=== PATIENT | male | born 1945 | race Caucasian/White ===

== ENCOUNTER 2017-02-05 19:16 | Inpatient (IN) | payer MEDICARE, MEDICAID ==
[2017-02-05] MEDS ORDERED: Sodium Chloride 0.9% 10 ML Syringe FLUSH PRN (19:30)
[2017-02-05] MEDS ORDERED: Ondansetron 4 MG/2 ML SDV IVPUSH ONE (19:30)
[2017-02-05] MEDS ORDERED: Sodium Chloride 0.9% 2.5 ML Syringe FLUSH PRN (19:30)
[2017-02-05] MEDS ORDERED: Sodium Chloride 0.9% 1,000 ML IV ONE (19:30)
[2017-02-05] MEDS ORDERED: Pantoprazole 40 MG Vial IVPUSH ONE (19:30)
--- NOTE | 2017-02-05 19:34 | EDM.PDOC ---
ED HPI GENERAL MEDICAL PROBLEM - General Chief Complaint: General Stated Complaint: ABDOMINAL PAIN Time Seen by Provider: 02/05/17 19:17 - History of Present Illness INITIAL COMMENTS - FREE TEXT/NARRATIVE: HISTORY AND PHYSICAL: History of present illness: The patient is a 8-year-old male with a history of hypertension diabetes for which she takes no medications and really has no primary care follow-up for over 2 years and is brought by family with complaints of diffuse abdominal pain that started this morning associated with several episodes of vomiting and generalized weakness. According to the patient he has no abdominal history but does have a long-standing history of alcohol use which he states mostly on the weekends and sometimes during the week. His family is concerned about his liver and states that he might drink more than he will admit to. The patient says the episodes of vomiting were clear fluid not bile lack or bloody and has had normal bowel movements without black or bloody stools. The patient says the abdominal pain is mostly in the upper abdomen but it is more diffuse now and he has had generalized weakness and difficulty ambulating due to weakness that started today. He has not had any falls. He has no focal weakness. The daughter also states that she's noticed that he's been progressively more confused intermittently over the last several weeks to months. He has no headache no chest pain no shortness of breath and is a chronic tobacco user but denies drug use. The patient has no extremity pain but also says he has some lower back pain which originates from his abdomen. He has no neck pain. Patient is not taking any medication for this abdominal complaints. He describes the pain as a squeezing muscle type of discomfort. He cannot localize the pain to any one area. Review of systems: As per history of present illness and below otherwise all systems reviewed and negative. Past medical history: As per history of present illness and as reviewed below otherwise noncontributory. Surgical history: As per history of present illness and as reviewed below otherwise noncontributory. Social history: No reported history of drug or alcohol abuse. Family history: As per history of present illness and as reviewed below otherwise noncontributory. Physical exam: Gen.: Well-developed thin man who is nontoxic and speaks clearly in the ED but is very soft spoken and moves all extremities spontaneously HEENT: Atraumatic, normocephalic, pupils reactive, negative for conjunctival pallor or scleral icterus, mucous membranes moist, throat clear, neck supple, nontender, trachea midline. Lungs: Clear to auscultation with scattered coarse breath sounds but no worker breathing,, breath sounds equal bilaterally, chest nontender. Heart: S1S2, regular, negative for clicks, rubs, or JVD. Abdomen: Soft, nondistended, minimally tender diffusely without localization right or left, no rebound or guarding and bowel sounds are hypoactive. There is no tympany on percussion. Negative for masses or hepatosplenomegaly. Negative for costovertebral tenderness. Pelvis: Stable nontender. Genitourinary: Deferred. Rectal: Deferred. Extremities: Atraumatic, negative for cords or calf pain. Neurovascular unremarkable. There are chronic skin changes of the lower extremities but no bony defects and full range of motion Neuro: Awake, alert, oriented but patient had to be prompted on the year and date more than once. His speech is intact.. Cranial nerves II through XII unremarkable. Motor and sensory unremarkable throughout. Exam nonfocal. Back: There are no midline step-offs tenderness defects of the thoracic or lumbar spine and no posterior rib tenderness and no evidence of any soft tissue injuries are seen. Diagnostics: EKG CBC CMP amylase lipase alcohol level ammonia INR troponin UA serum ketones CT scan of the head abdomen and pelvis Therapeutics: IV O2 monitor gentle IV fluids Zofran There were some delays with getting the CAT scan sent and the results but I discussed all testing results with the patient and family at bedside. He has intermittently complained about diffuse abdominal pain which comes and goes in a colicky-like fashion. He did have one episode of vomiting and ET but since then has not had any vomiting. I discussed within the large hiatal hernia and the chronic 12 L1 and L2 fractures which are not acute. They seem very concerned about his overall demeanor and that he is not acting at his baseline. I will discuss the case with Dr. Charles for observation admission. 2210: Case was discussed with our hospitalist Dr. hCarles who accepts the patient for observation admission. He would like a dose of metoprolol to be given here for the blood pressure and the patient currently is not complaining of a headache chest pain or shortness of breath. Impression: Abdominal pain and vomiting, etiology unclear, elevated blood pressure Definitive disposition and diagnosis as appropriate pending reevaluation and review of above. generalized Pain Score (Numeric/FACES): 10 - Related Data Allergies Allergy/AdvReac Type Severity Reaction Status Date / Time No Known Allergies Allergy Verified 02/05/17 19:21 Home Meds: Home Meds . [No Known Home Meds] 02/05/17 [History] Past Medical History HEENT History: Reports: None Cardiovascular History: Reports: Hypertension Respiratory History: Reports: Other (See Below) Other Respiratory History: smoker Gastrointestinal History: Reports: None Genitourinary History: Reports: None Musculoskeletal History: Reports: None Neurological History: Reports: None Psychiatric History: Reports: None Endocrine/Metabolic History: Reports: Diabetes, Type II Hematologic History: Reports: None Oncologic (Cancer) History: Reports: None Dermatologic History: Reports: None - Infectious Disease History Infectious Disease History: Reports: None - Past Surgical History Male Surgical History: Reports: None Social & Family History - Family History Family Medical History: Noncontributory - Tobacco Use Smoking Status *Q: Current Every Day Smoker Years of Tobacco use: 50 Packs/Tins Daily: 2 - Recreational Drug Use Recreational Drug Use: Yes Recreational Drug Type: Reports: Marijuana/Hashish ED ROS GENERAL - Review of Systems Review Of Systems: ROS reveals no pertinent complaints other than HPI. ED EXAM, GENERAL - Physical Exam Exam: See Below (see dictation) Course - Vital Signs Last Recorded V/S: Last Vital Signs Temp 36.6 C 02/05/17 19:21 Pulse 61 02/05/17 19:21 Resp 22 H 02/05/17 19:21 BP 198/115 H 02/05/17 19:21 Pulse Ox 100 02/05/17 19:21 - Orders/Labs/Meds Orders: Active Orders 24 hr Category Date Time Status Patient Status [ADT] Stat ADT 02/05/17 22:14 Ordered Blood Glucose Check, Bedside [RC] ONETIME Care 02/05/17 19:29 Active Cardiac Monitoring [RC] . DIRECTED Care 02/05/17 19:28 Active EKG Documentation Completion [RC] STAT Care 02/05/17 19:28 Active Oxygen Therapy, ED [RC] ASDIRECTED Care 02/05/17 19:28 Active Pulse Oximetry [RC] ASDIRECTED Care 02/05/17 19:28 Active Abdomen Pelvis w Cont [CT] Stat Exams 02/05/17 19:29 Taken Head wo Cont [CT] Stat Exams 02/05/17 19:29 Taken Metoprolol Tartrate [Lopressor] Med 02/05/17 22:14 Once 5 mg IVPUSH ONETIME ONE Sodium Chloride 0.9% [Normal Saline] 1,000 ml Med 02/05/17 22:15 Active IV ASDIRECTED Sodium Chloride 0.9% [Saline Flush] Med 02/05/17 19:30 Active 10 ml FLUSH ASDIRECTED PRN Sodium Chloride 0.9% [Saline Flush] Med 02/05/17 19:30 Active 2.5 ml FLUSH ASDIRECTED PRN Saline Lock Insert [OM.PC] Stat Oth 02/05/17 19:28 Ordered Medication Orders Sodium Chloride (Normal Saline) 1,000 mls @ 150 mls/hr IV ASDIRECTED RICO Sodium Chloride (Saline Flush) 10 ml FLUSH ASDIRECTED PRN PRN Reason: Keep Vein Open Last Admin: 02/05/17 21:02 Dose: 10 ml Sodium Chloride (Saline Flush) 2.5 ml FLUSH ASDIRECTED PRN PRN Reason: Keep Vein Open Last Admin: 02/05/17 21:03 Dose: 2.5 ml Labs: Laboratory Tests 02/05/17 02/05/17 02/05/17 Range/Units 19:48 19:48 19:48 WBC 3.01 L (4.0-11.0) K/uL RBC 5.31 (4.50-5.90) M/uL Hgb 15.3 (13.0-17.0) g/dL Hct 44.8 (38.0-50.0) % MCV 84.4 (80.0-98.0) fL MCH 28.8 (27.0-32.0) pg MCHC 34.2 (31.0-37.0) g/dL RDW Std Deviation 43.7 (28.0-62.0) fl RDW Coeff of Rayshawn 14 (11.0-15.0) % Plt Count 165 (150-400) K/uL MPV 9.20 (7.40-12.00) fL Neut % (Auto) 63.5 (48.0-80.0) % Lymph % (Auto) 21.3 (16.0-40.0) % [place] % (Auto) 14.6 (0.0-15.0) % Eos % (Auto) 0.3 (0.0-7.0) % Baso % (Auto) 0.3 (0.0-1.5) % Neut # (Auto) 1.9 (1.4-5.7) K/uL Lymph # (Auto) 0.6 (0.6-2.4) K/uL [place] # (Auto) 0.4 (0.0-0.8) K/uL Eos # (Auto) 0.0 (0.0-0.7) K/uL Baso # (Auto) 0.0 (0.0-0.1) K/uL Nucleated RBC % 0.0 /100WBC Nucleated RBCs # 0 K/uL INR 1.06 (0.86-1.11) Sodium 134 L (136-146) mmol/L Potassium 4.0 (3.5-5.1) mmol/L Chloride 100 (98-110) mmol/L Carbon Dioxide 24 (21-31) mmol/L BUN 14 (6.0-23.0) mg/dL Creatinine 1.0 (0.6-1.5) mg/dL Est Cr Clr Drug Dosing TNP Estimated GFR (MDRD) > 60.0 ml/min Glucose 142 H (60-110) mg/dL POC Glucose (60-110) mg/dL Calcium 9.4 (8.8-10.8) mg/dL Total Bilirubin 0.5 (0.1-1.5) mg/dL AST 21 (5-40) IU/L ALT 17 (8-54) IU/L Alkaline Phosphatase 81 (40-150) Ammonia (14-68) UG/DL Troponin I (0.0-0.29) NG/ML Total Protein 7.4 (6.0-8.0) g/dL Albumin 4.1 (3.4-4.8) g/dL Globulin 3.3 (2.0-3.5) g/dL Albumin/Globulin Ratio 1.2 L (1.3-2.8) Amylase 52 (10-90) U/L Lipase 40 (7-80) U/L Urine Color Urine Appearance Urine pH (5.0-8.0) Ur Specific [place] (1.001-1.035) Urine Protein (NEGATIVE) mg/dL Urine Glucose (UA) (NEGATIVE) mg/dL Urine Ketones (NEGATIVE) mg/dL Urine Occult Blood (NEGATIVE) Urine Nitrite (NEGATIVE) Urine Bilirubin (NEGATIVE) Urine Urobilinogen (<2.0) EU/dL Ur Leukocyte Esterase (NEGATIVE) Urine RBC (0-2/HPF) Urine WBC (0-5/HPF) Ur Epithelial Cells (NONE-FEW) Urine Bacteria (NEGATIVE) Ethyl Alcohol < 10.0 mg/dL Ketones (NEG) 02/05/17 02/05/17 02/05/17 Range/Units 19:48 19:48 19:48 WBC (4.0-11.0) K/uL RBC (4.50-5.90) M/uL Hgb (13.0-17.0) g/dL Hct (38.0-50.0) % MCV (80.0-98.0) fL MCH (27.0-32.0) pg MCHC (31.0-37.0) g/dL RDW Std Deviation (28.0-62.0) fl RDW Coeff of Rayshawn (11.0-15.0) % Plt Count (150-400) K/uL MPV (7.40-12.00) fL Neut % (Auto) (48.0-80.0) % Lymph % (Auto) (16.0-40.0) % [place] % (Auto) (0.0-15.0) % Eos % (Auto) (0.0-7.0) % Baso % (Auto) (0.0-1.5) % Neut # (Auto) (1.4-5.7) K/uL Lymph # (Auto) (0.6-2.4) K/uL [place] # (Auto) (0.0-0.8) K/uL Eos # (Auto) (0.0-0.7) K/uL Baso # (Auto) (0.0-0.1) K/uL Nucleated RBC % /100WBC Nucleated RBCs # K/uL INR (0.86-1.11) Sodium (136-146) mmol/L Potassium (3.5-5.1) mmol/L Chloride (98-110) mmol/L Carbon Dioxide (21-31) mmol/L BUN (6.0-23.0) mg/dL Creatinine (0.6-1.5) mg/dL Est Cr Clr Drug Dosing Estimated GFR (MDRD) ml/min Glucose (60-110) mg/dL POC Glucose (60-110) mg/dL Calcium (8.8-10.8) mg/dL Total Bilirubin (0.1-1.5) mg/dL AST (5-40) IU/L ALT (8-54) IU/L Alkaline Phosphatase (40-150) Ammonia 39 (14-68) UG/DL Troponin I < 0.10 (0.0-0.29) NG/ML Total Protein (6.0-8.0) g/dL Albumin (3.4-4.8) g/dL Globulin (2.0-3.5) g/dL Albumin/Globulin Ratio (1.3-2.8) Amylase (10-90) U/L Lipase (7-80) U/L Urine Color Urine Appearance Urine pH (5.0-8.0) Ur Specific [place] (1.001-1.035) Urine Protein (NEGATIVE) mg/dL Urine Glucose (UA) (NEGATIVE) mg/dL Urine Ketones (NEGATIVE) mg/dL Urine Occult Blood (NEGATIVE) Urine Nitrite (NEGATIVE) Urine Bilirubin (NEGATIVE) Urine Urobilinogen (<2.0) EU/dL Ur Leukocyte Esterase (NEGATIVE) Urine RBC (0-2/HPF) Urine WBC (0-5/HPF) Ur Epithelial Cells (NONE-FEW) Urine Bacteria (NEGATIVE) Ethyl Alcohol mg/dL Ketones NEGATIVE (NEG) 02/05/17 02/05/17 Range/Units 20:25 21:11 WBC (4.0-11.0) K/uL RBC (4.50-5.90) M/uL Hgb (13.0-17.0) g/dL Hct (38.0-50.0) % MCV (80.0-98.0) fL MCH (27.0-32.0) pg MCHC (31.0-37.0) g/dL RDW Std Deviation (28.0-62.0) fl RDW Coeff of Rayshawn (11.0-15.0) % Plt Count (150-400) K/uL MPV (7.40-12.00) fL Neut % (Auto) (48.0-80.0) % Lymph % (Auto) (16.0-40.0) % [place] % (Auto) (0.0-15.0) % Eos % (Auto) (0.0-7.0) % Baso % (Auto) (0.0-1.5) % Neut # (Auto) (1.4-5.7) K/uL Lymph # (Auto) (0.6-2.4) K/uL [place] # (Auto) (0.0-0.8) K/uL Eos # (Auto) (0.0-0.7) K/uL Baso # (Auto) (0.0-0.1) K/uL Nucleated RBC % /100WBC Nucleated RBCs # K/uL INR (0.86-1.11) Sodium (136-146) mmol/L Potassium (3.5-5.1) mmol/L Chloride (98-110) mmol/L Carbon Dioxide (21-31) mmol/L BUN (6.0-23.0) mg/dL Creatinine (0.6-1.5) mg/dL Est Cr Clr Drug Dosing Estimated GFR (MDRD) ml/min Glucose (60-110) mg/dL POC Glucose 119 H (60-110) mg/dL Calcium (8.8-10.8) mg/dL Total Bilirubin (0.1-1.5) mg/dL AST (5-40) IU/L ALT (8-54) IU/L Alkaline Phosphatase (40-150) Ammonia (14-68) UG/DL Troponin I (0.0-0.29) NG/ML Total Protein (6.0-8.0) g/dL Albumin (3.4-4.8) g/dL Globulin (2.0-3.5) g/dL Albumin/Globulin Ratio (1.3-2.8) Amylase (10-90) U/L Lipase (7-80) U/L Urine Color YELLOW Urine Appearance CLEAR Urine pH 7.0 (5.0-8.0) Ur Specific [place] 1.015 (1.001-1.035) Urine Protein TRACE (NEGATIVE) mg/dL Urine Glucose (UA) NEGATIVE (NEGATIVE) mg/dL Urine Ketones TRACE H (NEGATIVE) mg/dL Urine Occult Blood TRACE-INTACT (NEGATIVE) Urine Nitrite NEGATIVE (NEGATIVE) Urine Bilirubin NEGATIVE (NEGATIVE) Urine Urobilinogen 0.2 (<2.0) EU/dL Ur Leukocyte Esterase NEGATIVE (NEGATIVE) Urine RBC 0-2 (0-2/HPF) Urine WBC 0-1 (0-5/HPF) Ur Epithelial Cells RARE (NONE-FEW) Urine Bacteria RARE (NEGATIVE) Ethyl Alcohol mg/dL Ketones (NEG) Meds: Medications Generic Name Dose Route Start Last Admin Trade Name Freq PRN Reason Stop Dose Admin Sodium Chloride 1,000 mls @ 150 mls/hr 02/05/17 22:15 Normal Saline IV ASDIRECTED RICO Sodium Chloride 10 ml 02/05/17 19:30 02/05/17 21:02 Saline Flush FLUSH 10 ml ASDIRECTED PRN Administration Keep Vein Open Sodium Chloride 2.5 ml 02/05/17 19:30 02/05/17 21:03 Saline Flush FLUSH 2.5 ml ASDIRECTED PRN Administration Keep Vein Open Discontinued Medications Generic Name Dose Route Start Last Admin Trade Name Freq PRN Reason Stop Dose Admin Sodium Chloride 1,000 mls @ 999 mls/hr 02/05/17 19:30 02/05/17 21:00 Normal Saline IV 02/05/17 20:30 999 mls/hr STAT ONE Administration Iopamidol 100 ml 02/05/17 20:06 02/05/17 20:07 Isovue Multipack-370 (76%) IVPUSH 02/05/17 20:07 100 ml ONETIME STA Administration Ketorolac Tromethamine 30 mg 02/05/17 22:07 Toradol IVPUSH 02/05/17 22:08 ONETIME ONE Ondansetron HCl 4 mg 02/05/17 19:30 02/05/17 21:08 Zofran IVPUSH 02/05/17 19:31 4 mg ONETIME ONE Administration Pantoprazole Sodium 80 mg 02/05/17 19:30 02/05/17 21:00 Protonix Iv IVPUSH 02/05/17 19:31 80 mg .BOLUS ONE Administration Departure - Departure Time of Disposition: 22:17 Disposition: Refer to Observation Condition: Good Clinical Impression: Elevated blood pressure reading Abdominal pain Qualifiers: Abdominal location: generalized Qualified Code(s): R10.84 - Generalized abdominal pain Vomiting Qualifiers: Vomiting type: unspecified Vomiting Intractability: non-intractable Nausea presence: with nausea Qualified Code(s): R11.2 - Nausea with vomiting, unspecified - Discharge Information Forms: ED Department Discharge - My Orders Last 24 Hours: My Active Orders 02/05/17 19:28 Cardiac Monitoring [RC] . DIRECTED EKG Documentation Completion [RC] STAT Oxygen Therapy, ED [RC] ASDIRECTED Pulse Oximetry [RC] ASDIRECTED Saline Lock Insert [OM.PC] Stat 02/05/17 19:29 Blood Glucose Check, Bedside [RC] ONETIME Abdomen Pelvis w Cont [CT] Stat Head wo Cont [CT] Stat 02/05/17 19:30 Sodium Chloride 0.9% [Saline Flush] 10 ml FLUSH ASDIRECTED PRN Sodium Chloride 0.9% [Saline Flush] 2.5 ml FLUSH ASDIRECTED PRN 02/05/17 22:14 Patient Status [ADT] Stat Metoprolol Tartrate [Lopressor] 5 mg IVPUSH ONETIME ONE 02/05/17 22:15 Sodium Chloride 0.9% [Normal Saline] 1,000 ml IV ASDIRECTED - Assessment/Plan Last 24 Hours: My Active Orders 02/05/17 19:28 Cardiac Monitoring [RC] . DIRECTED EKG Documentation Completion [RC] STAT Oxygen Therapy, ED [RC] ASDIRECTED Pulse Oximetry [RC] ASDIRECTED Saline Lock Insert [OM.PC] Stat 02/05/17 19:29 Blood Glucose Check, Bedside [RC] ONETIME Abdomen Pelvis w Cont [CT] Stat Head wo Cont [CT] Stat 02/05/17 19:30 Sodium Chloride 0.9% [Saline Flush] 10 ml FLUSH ASDIRECTED PRN Sodium Chloride 0.9% [Saline Flush] 2.5 ml FLUSH ASDIRECTED PRN 02/05/17 22:14 Patient Status [ADT] Stat Metoprolol Tartrate [Lopressor] 5 mg IVPUSH ONETIME ONE 02/05/17 22:15 Sodium Chloride 0.9% [Normal Saline] 1,000 ml IV ASDIRECTED
[2017-02-05] MEDS ORDERED: Iopamidol 755 MG/ML 500 ML Multipack Bottle IVPUSH STA (20:06)
[2017-02-05 20:23] LABS: CHLORIDE,CL 100 mmol/L (98-110); SODIUM,NA 134 mmol/L (136-146)
[2017-02-05] MEDS ORDERED: Ketorolac 30 MG/ML SDV IVPUSH ONE (22:07)
[2017-02-05] MEDS ORDERED: Metoprolol Tartrate 5 MG/5 ML SDV IVPUSH ONE (22:14)
[2017-02-05] MEDS: Sodium Chloride 0.9% 1,000 ML IV SCH (22:26)
[2017-02-06] MEDS: Thiamine 100 MG Tab PO SCH ×2 (00:34→08:54)
[2017-02-06] MEDS: Folic Acid 50 MG/10 ML MDV SUBCUT SCH ×2 (00:34→08:55)
[2017-02-06] MEDS: Sodium Chloride 0.9% 1,000 ML IV SCH ×3 (04:57→20:06)
--- NOTE | 2017-02-06 09:14 | PCM.HP ---
H&P History of Present Illness - General Date of Service: 02/06/17 Source of Information: Patient - History of Present Illness Initial Comments - Free Text/Narative: 71-year-old male with a history of hypertension diabetes for which she takes no medications and really has no primary care follow-up for over 2 years and is brought by family with complaints of diffuse abdominal pain that started this morning associated with several episodes of vomiting and generalized weakness. According to the patient he has no abdominal history but does have a long- standing history of alcohol use which he states mostly on the weekends and sometimes during the week. His family is concerned about his liver and states that he might drink more than he will admit to. The patient says the episodes of vomiting were clear fluid not bile lack or bloody and has had normal bowel movements without black or bloody stools. The patient says the abdominal pain is mostly in the upper abdomen but it is more diffuse now and he has had generalized weakness and difficulty ambulating due to weakness that started today. He has not had any falls. He has no focal weakness. The daughter also states that she's noticed that he's been progressively more confused intermittently over the last several weeks to months.He does not remember alot of things. He drinks 13 beers over weekend and does not drink during weekdays. He has no headache no chest pain no shortness of breath and is a chronic tobacco user but denies drug use. In the ED, His blood pressure was elevated 198 /115. RR 20's. IV Lopressor 5 mg x 1 given. Utox negative. CBC, BMP, lipase, amylase were unremarkable. Abdominal CT negative. generalized Pain Score (Numeric/FACES): 0 - Related Data Allergies/Adverse Reactions: Allergies Allergy/AdvReac Type Severity Reaction Status Date / Time No Known Allergies Allergy Verified 02/05/17 19:21 Home Medications: Home Meds . [No Known Home Meds] 02/05/17 [History] Past Medical History HEENT History: Reports: None Cardiovascular History: Reports: Hypertension Respiratory History: Reports: Other (See Below) Other Respiratory History: smoker Gastrointestinal History: Reports: None Genitourinary History: Reports: None Musculoskeletal History: Reports: None Neurological History: Reports: None Psychiatric History: Reports: None Endocrine/Metabolic History: Reports: Diabetes, Type II Hematologic History: Reports: None Oncologic (Cancer) History: Reports: None Dermatologic History: Reports: None - Infectious Disease History Infectious Disease History: Reports: None - Past Surgical History Male Surgical History: Reports: None Social & Family History - Family History Family Medical History: Noncontributory - Tobacco Use Smoking Status *Q: Current Every Day Smoker Years of Tobacco use: 50 Packs/Tins Daily: 2 Second Hand Smoke Exposure: Yes - Caffeine Use Caffeine Use: Reports: Coffee, Soda - Alcohol Use Number of Drinks Per Day: 10 Date of Last Drink: 02/03/17 - Recreational Drug Use Recreational Drug Use: Yes Recreational Drug Type: Reports: Marijuana/Hashish H&P Review of Systems - Review of Systems: Review Of Systems: See Below General: Reports: Fatigue HEENT: Reports: No Symptoms Pulmonary: Reports: No Symptoms Cardiovascular: Reports: No Symptoms Gastrointestinal: Reports: No Symptoms Genitourinary: Reports: No Symptoms Musculoskeletal: Reports: No Symptoms Skin: Reports: No Symptoms Psychiatric: Reports: No Symptoms Neurological: Reports: No Symptoms Exam - Exam Exam: See Below - Vital Signs Vital Signs: Last Vital Signs Temp 97.7 F 02/06/17 04:04 Pulse 55 L 02/06/17 04:04 Resp 14 02/06/17 04:04 BP 116/61 02/06/17 04:04 Pulse Ox 97 02/06/17 04:04 Weight: 70.3 kg - Exam Quality Assessment: Supplemental Oxygen General: Alert, Oriented HEENT: EOMI Neck: Supple, Trachea Midline Lungs: Clear to Auscultation, Normal Respiratory Effort Cardiovascular: Regular Rate, Regular Rhythm GI/Abdominal Exam: Normal Bowel Sounds, Soft Back Exam: Normal Inspection Extremities: Normal Inspection Neurological: Cranial Nerves Intact Neuro Extensive - Mental Status: Memory Loss-Remote Events, Memory Loss-Recent Events, Other (poor cognition) Psychiatric: Withdrawal Symptoms - Patient Data Lab Results Last 24 hrs: Laboratory Results - last 24 hr 02/06/17 Range/Units 06:22 Troponin I < 0.10 (0.0-0.29) NG/ML Result Diagrams: 02/05/17 19:48 02/05/17 19:48 *Q Meaningful Use (ADM) - VTE *Q VTE Criteria *Q: - Stroke *Q Stroke Criteria *Q: - AMI *Q AMI Criteria *Q: Problem List Initiated/Reviewed/Updated: Yes Orders Last 24hrs: Active Orders 24 hr Category Date Time Status CIWAA Assessment [RC] Q4H Care 02/06/17 04:59 Active Television Audio Engineer Discontinue [Cardiac Monitoring Care 02/06/17 00:16 Inactive Discontinue] [RC] Click To Edit Telemetry Monitoring [Cardiac Monitoring] [RC] . Care 02/06/17 00:16 Active DIRECTED Medication Orders Folic Acid (Folic Acid) 1 mg SUBCUT DAILY [facility] Last Admin: 02/06/17 08:55 Dose: 1 mg Admin: 02/06/17 00:34 Dose: 1 mg Sodium Chloride (Normal Saline) 1,000 mls @ 150 mls/hr IV ASDIRECTED [facility] Last Admin: 02/06/17 04:57 Dose: 150 mls/hr Infusion: 02/06/17 04:57 Dose: 150 mls/hr Admin: 02/05/17 22:26 Dose: 150 mls/hr Sodium Chloride (Saline Flush) 10 ml FLUSH ASDIRECTED PRN PRN Reason: Keep Vein Open Last Admin: 02/05/17 21:02 Dose: 10 ml Sodium Chloride (Saline Flush) 2.5 ml FLUSH ASDIRECTED PRN PRN Reason: Keep Vein Open Last Admin: 02/05/17 21:03 Dose: 2.5 ml Thiamine HCl (Vitamin B-1) 100 mg PO DAILY [facility] Last Admin: 02/06/17 08:54 Dose: 100 mg Admin: 02/06/17 00:34 Dose: 100 mg Assessment/Plan Comment:: 71 yo male admitted for confusion and abdominal pain Abdominal pain : resolved. ETOH withdrawal: ciwaa 9: start ativan protocol continue folic acid and thiamine.
--- NOTE | 2017-02-06 10:53 | CT ---
EXAM DATE: 02/06/17 PATIENT'S AGE: 71 Patient: NEDRA ELMORE Facility: [place], [place] Site . Site : [id number] Study: CT Head [id number]/24/2017 9:04:38 PM Ordering Physician: Alden Powell Final Report: INDICATION: Pain, questionable loss of consciousness TECHNIQUE: Head CT without contrast. COMPARISON: None FINDINGS: CSF spaces: Within normal limits for age. Brain parenchyma: There are nonspecific low attenuation white matter changes consistent with chronic microvascular disease. No sign of mass, hemorrhage, or midline shift. Skull base and calvarium: The visualized paranasal sinuses and mastoid air cells demonstrate no acute or significant findings. The visualized orbits are grossly unremarkable. No skull fractures. There is intracranial atherosclerosis. IMPRESSION: 1. No acute findings. 2. Nonspecific white matter disease, typical of chronic microvascular disease. Please note that all CT scans at this facility use dose modulation, iterative reconstruction, and/or weight-based dosing when appropriate to reduce radiation dose to as low as reasonably achievable. Dictated by Tita Jimenez MD @ Feb 05 2017 9:36PM (Electronic Signature) Report Signed by Proxy. [facility]ilva
--- NOTE | 2017-02-06 10:54 | CT ---
EXAM DATE: 02/06/17 PATIENT'S AGE: 71 Patient: NEDRA ELMORE Facility: [place], [place] Site . Site : 1945 Study: CT Abdomen/Pelvis [id number]/24/2017 9:06:42 PM Ordering Physician: Alden Powell Final Report: INDICATION: N/V PATIENT BEGAN THROWING UP DURING SCAN CT ABDOMEN AND PELVIS WITH CONTRAST TECHNIQUE: Multidetector CT imaging was performed through the abdomen and pelvis following intravenous contrast administration using 100 mL Isovue 370. Coronal and sagittal reconstructions were generated. COMPARISON: 01/19/[address] angio. FINDINGS: The exam is significantly limited by motion as the patient reportedly vomited during the scan. Lower chest: Mild bibasilar lung stranding consistent with atelectasis. Stable small left basilar lung nodule. Liver: Stable tiny hypodensity in the right lobe of the liver on image 39 of series 201, consistent with a benign cyst. Gallbladder and bile ducts: No gallbladder wall thickening or calcified gallstones. No biliary dilation identified. Pancreas: Unremarkable. Spleen: Normal. Adrenals: No nodules or masses. Kidneys, ureters, and urinary bladder: No renal masses or hydronephrosis. No bladder mass or definite wall thickening. Gastrointestinal tract: Moderate to large hiatal hernia. Normal caliber small bowel without obvious obstruction. The appendix is normal. Multiple sigmoid colon diverticula without definite evidence of diverticulitis. Vascular structures: Diffuse atherosclerotic changes of the aorta and iliac arteries. Ectasia of the infrarenal abdominal aorta, similar to the previous exam. Peritoneum: No free air, abscess, or significant free fluid. Lymph nodes: No pathologically enlarged nodes identified. Reproductive organs: Moderate to severe prostatomegaly. Bones: Chronic-appearing mild compression fracture of the superior endplate of T12. Subacute healing nondisplaced fractures of the left transverse processes of L1 and L2. IMPRESSION: 1. Markedly limited exam due to motion. 2. No definite acute intra-abdominal abnormality identified. 2. Multiple nonacute findings as detailed above. KIAH HEART MD [employer] Dictated by Richie Heart MD @ 02/05/2017 10:00:46 PM Dictated by: Richie Heart MD @ 02/05/2017 22:01:30 (Electronic Signature) Report Signed by Proxy. BLANCHE
[2017-02-06] MEDS: Thiamine 100 MG in Sodium Chloride 0.9% 100 ML IV SCH (13:43)
[2017-02-06] MEDS ORDERED: Metoprolol Tartrate 5 MG/5 ML SDV IVPUSH ONE (16:14)
[2017-02-06] MEDS ORDERED: Magnesium Sulfate/Water 2 GM in Premix Bag 1 BAG IV ONE (16:19)
[2017-02-06] MEDS: Lisinopril 5 MG Tab PO SCH (16:31)
[2017-02-06] MEDS ORDERED: LORazepam 1 MG Tab PO ONE (18:29)
[2017-02-07] MEDS: LORazepam 2 MG/ML MDV IVPUSH PRN ×2 (00:14→03:20)
[2017-02-07] MEDS: Sodium Chloride 0.9% 1,000 ML IV SCH ×4 (02:48→23:11)
[2017-02-07 05:43] LABS: CHLORIDE,CL 102 mmol/L (98-110); SODIUM,NA 134 mmol/L (136-146)
[2017-02-07] MEDS: Lisinopril 5 MG Tab PO SCH (08:51)
[2017-02-07] MEDS: Thiamine 100 MG in Sodium Chloride 0.9% 100 ML IV SCH (08:51)
[2017-02-07] MEDS: Folic Acid 50 MG/10 ML MDV SUBCUT SCH (08:52)
--- NOTE | 2017-02-07 09:34 | CR ---
EXAM DATE: 02/07/17 PATIENT'S AGE: 71 Patient: NEDRA ELMORE Facility: [place], [place] Site Site : 1945 Study: XRay Chest Left RIBS W CHEST-02/06/2017 5:36:27 PM Ordering Physician: SHAY ALVAREZ Final Report: INDICATION : Lower rib pain, cough. TECHNIQUE : Chest with rib detail views LEFT ribs. 5 views FINDINGS : No significant rib fractures are visualized. No additional osseous lesions. The lungs are clear. Heart size is normal. No visualized pneumothorax. Left costophrenic sulcus clear. IMPRESSION : Negative chest and left rib series. Dictated by Rohan Johns MD @ 02/06/2017 6:04:15 PM Dictated by: Rohan Johns MD @ 02/06/2017 18:04:18 (Electronic Signature) Report Signed by Proxy. [facility] DAV[facility] HOSPITALSilva
--- NOTE | 2017-02-07 10:31 | PCM.PN ---
- General Info Date of Service: 02/07/17 Subjective Update: He c/o of rib pain yesterday. RIB xray and cxr did not reveal any acute cardiopulmonary abnormalities. KYLE 19 Daughter was present. She is concerned he might go home and drink again. He lives alone. Functional Status: Reports: Tolerating Diet, Urinating - Review of Systems General: Reports: No Symptoms HEENT: Reports: No Symptoms Pulmonary: Reports: No Symptoms Cardiovascular: Reports: No Symptoms Gastrointestinal: Reports: No Symptoms Genitourinary: Reports: No Symptoms Musculoskeletal: Reports: No Symptoms Skin: Reports: No Symptoms Neurological: Reports: Tremors Psychiatric: Reports: No Symptoms - Patient Data Vitals - Most Recent: Last Vital Signs Temp 99.2 F 02/07/17 04:00 Pulse 99 02/07/17 04:00 Resp 20 02/07/17 04:00 BP 146/94 H 02/07/17 08:51 Pulse Ox 95 02/07/17 04:00 Weight - Most Recent: 71.5 kg Med Orders - Current: Current Medications Folic Acid (Folic Acid) 1 mg SUBCUT DAILY [facility] Last Admin: 02/07/17 08:52 Dose: 1 mg Sodium Chloride (Normal Saline) 1,000 mls @ 150 mls/hr IV ASDIRECTED [facility] Last Admin: 02/07/17 09:03 Dose: 150 mls/hr Thiamine HCl 100 mg/ Sodium (Chloride) 101 mls @ 200 mls/hr IV DAILY [facility] Last Admin: 02/07/17 08:51 Dose: 200 mls/hr Lisinopril (Prinivil) 5 mg PO DAILY [facility] Last Admin: 02/07/17 08:51 Dose: 5 mg Lorazepam (Ativan) 0 mg IVPUSH Q4H PRN; Protocol PRN Reason: agitation/withdrawal Last Admin: 02/07/17 03:20 Dose: 2 mg Sodium Chloride (Saline Flush) 10 ml FLUSH ASDIRECTED PRN PRN Reason: Keep Vein Open Last Admin: 02/05/17 21:02 Dose: 10 ml Sodium Chloride (Saline Flush) 2.5 ml FLUSH ASDIRECTED PRN PRN Reason: Keep Vein Open Last Admin: 02/05/17 21:03 Dose: 2.5 ml Sodium Phosphate (Neutra-Phos) 250 mg PO QID [facility] Discontinued Medications Sodium Chloride (Normal Saline) 1,000 mls @ 999 mls/hr IV STAT ONE Stop: 02/05/17 20:30 Last Admin: 02/05/17 21:00 Dose: 999 mls/hr Magnesium Sulfate 2 gm/ Premix 50 mls @ 50 mls/hr IV ONETIME ONE Stop: 02/06/17 17:18 Last Admin: 02/06/17 16:32 Dose: 50 mls/hr Iopamidol (Isovue Multipack-370 (76%)) 100 ml IVPUSH ONETIME STA Stop: 02/05/17 20:07 Last Admin: 02/05/17 20:07 Dose: 100 ml Ketorolac Tromethamine (Toradol) 30 mg IVPUSH ONETIME ONE Stop: 02/05/17 22:08 Last Admin: 02/05/17 22:26 Dose: 30 mg Lorazepam (Ativan) 1 mg PO ONETIME ONE Stop: 02/06/17 18:30 Last Admin: 02/06/17 18:41 Dose: 1 mg Metoprolol Tartrate (Lopressor) 5 mg IVPUSH ONETIME ONE Stop: 02/05/17 22:15 Last Admin: 02/05/17 22:27 Dose: 5 mg Metoprolol Tartrate (Lopressor) 5 mg IVPUSH ONETIME ONE Stop: 02/06/17 16:15 Last Admin: 02/06/17 16:50 Dose: Not Given Ondansetron HCl (Zofran) 4 mg IVPUSH ONETIME ONE Stop: 02/05/17 19:31 Last Admin: 02/05/17 21:08 Dose: 4 mg Pantoprazole Sodium (Protonix Iv) 80 mg IVPUSH .BOLUS ONE Stop: 02/05/17 19:31 Last Admin: 02/05/17 21:00 Dose: 80 mg Thiamine HCl (Vitamin B-1) 100 mg PO DAILY [facility] Last Admin: 02/06/17 08:54 Dose: 100 mg - Exam General: Sedated HEENT: Pupils Equal, EOMI Lungs: Decreased Breath Sounds Cardiovascular: Regular Rate, Regular Rhythm GI/Abdominal Exam: Normal Bowel Sounds, Soft Back Exam: Normal Inspection Extremities: Normal Inspection Neurological: No New Focal Deficit Psy/Mental Status: Normal Affect, Normal Mood - Problem List Review Problem List Initiated/Reviewed/Updated: Yes - My Orders Last 24 Hours: My Active Orders 02/07/17 12:00 Phosphorus #1 [Neutra-Phos] 250 mg PO QID - Plan Plan:: 71 yo male admitted for ETOH withdrawal ETOH withdrawal: ciwaa 18: start Ativan protocol continue folic acid and thiamine. replaced phosphate
[2017-02-07] MEDS: Phosphorus #1 250 MG Tab PO SCH ×3 (12:05→23:10)
[2017-02-08 05:47] LABS: CHLORIDE,CL 106 mmol/L (98-110); SODIUM,NA 137 mmol/L (136-146)
[2017-02-08] MEDS: Sodium Chloride 0.9% 1,000 ML IV SCH (06:14)
[2017-02-08] MEDS: Phosphorus #1 250 MG Tab PO SCH ×4 (06:14→23:16)
[2017-02-08] MEDS: Folic Acid 50 MG/10 ML MDV SUBCUT SCH (09:45)
[2017-02-08] MEDS: Thiamine 100 MG in Sodium Chloride 0.9% 100 ML IV SCH (09:45)
[2017-02-08] MEDS: Lisinopril 5 MG Tab PO SCH (09:45)
[2017-02-08] MEDS ORDERED: Nicotine 14 MG/24 Hr Patch TRDERM ONE (15:56)
--- NOTE | 2017-02-08 16:25 | PCM.PN ---
- General Info Date of Service: 02/08/17 Subjective Update: CIWAA score 4. doing much better today Functional Status: Reports: Pain Controlled, Tolerating Diet, Ambulating, Urinating - Review of Systems General: Reports: No Symptoms HEENT: Reports: No Symptoms Pulmonary: Reports: No Symptoms Cardiovascular: Reports: No Symptoms Gastrointestinal: Reports: No Symptoms Genitourinary: Reports: No Symptoms Musculoskeletal: Reports: No Symptoms Skin: Reports: No Symptoms Neurological: Reports: No Symptoms Psychiatric: Reports: No Symptoms - Patient Data Vitals - Most Recent: Last Vital Signs Temp 97.7 F 02/08/17 16:00 Pulse 68 02/08/17 16:00 Resp 22 H 02/08/17 16:00 BP 134/62 02/08/17 16:00 Pulse Ox 98 02/08/17 16:00 Weight - Most Recent: 71.5 kg I&O - Last 24 Hours: Intake & Output 02/08/17 02/08/17 02/08/17 06:59 14:59 22:59 Intake Total 2889 Output Total 725 Balance 2164 Lab Results Last 24 Hours: Laboratory Results - last 24 hr 02/08/17 02/08/17 Range/Units 04:36 04:36 WBC 4.28 (4.0-11.0) K/uL RBC 5.35 (4.50-5.90) M/uL Hgb 15.1 (13.0-17.0) g/dL Hct 45.3 (38.0-50.0) % MCV 84.7 (80.0-98.0) fL MCH 28.2 (27.0-32.0) pg MCHC 33.3 (31.0-37.0) g/dL RDW Std Deviation 44.1 (28.0-62.0) fl RDW Coeff of Rayshawn 14 (11.0-15.0) % Plt Count 152 (150-400) K/uL MPV 9.90 (7.40-12.00) fL Neut % (Auto) 58.4 (48.0-80.0) % Lymph % (Auto) 26.4 (16.0-40.0) % [place] % (Auto) 14.5 (0.0-15.0) % Eos % (Auto) 0.2 (0.0-7.0) % Baso % (Auto) 0.5 (0.0-1.5) % Neut # (Auto) 2.5 (1.4-5.7) K/uL Lymph # (Auto) 1.1 (0.6-2.4) K/uL [place] # (Auto) 0.6 (0.0-0.8) K/uL Eos # (Auto) 0.0 (0.0-0.7) K/uL Baso # (Auto) 0.0 (0.0-0.1) K/uL Nucleated RBC % 0.0 /100WBC Nucleated RBCs # 0 K/uL Sodium 137 (136-146) mmol/L Potassium 4.2 (3.5-5.1) mmol/L Chloride 106 (98-110) mmol/L Carbon Dioxide 24 (21-31) mmol/L BUN 10 (6.0-23.0) mg/dL Creatinine 0.9 (0.6-1.5) mg/dL Est Cr Clr Drug Dosing 77.24 mL/min Estimated GFR (MDRD) > 60.0 ml/min Glucose 95 (60-110) mg/dL Calcium 8.5 L (8.8-10.8) mg/dL Phosphorus 2.4 (2.4-4.7) mg/dL Magnesium 1.5 (1.5-2.3) mEq/L Med Orders - Current: Current Medications Docusate Sodium (Colace) 100 mg PO DAILY [facility] Folic Acid (Folic Acid) 1 mg SUBCUT DAILY [facility] Last Admin: 02/08/17 09:45 Dose: 1 mg Thiamine HCl 100 mg/ Sodium (Chloride) 101 mls @ 200 mls/hr IV DAILY [facility] Last Admin: 02/08/17 09:45 Dose: 200 mls/hr Lisinopril (Prinivil) 5 mg PO DAILY [facility] Last Admin: 02/08/17 09:45 Dose: 5 mg Lorazepam (Ativan) 0 mg IVPUSH Q4H PRN; Protocol PRN Reason: agitation/withdrawal Last Admin: 02/07/17 03:20 Dose: 2 mg Sodium Chloride (Saline Flush) 10 ml FLUSH ASDIRECTED PRN PRN Reason: Keep Vein Open Last Admin: 02/05/17 21:02 Dose: 10 ml Sodium Chloride (Saline Flush) 2.5 ml FLUSH ASDIRECTED PRN PRN Reason: Keep Vein Open Last Admin: 02/05/17 21:03 Dose: 2.5 ml Sodium Phosphate (Neutra-Phos) 250 mg PO QID [facility] Last Admin: 02/08/17 13:39 Dose: 250 mg Discontinued Medications Sodium Chloride (Normal Saline) 1,000 mls @ 999 mls/hr IV STAT ONE Stop: 02/05/17 20:30 Last Admin: 02/05/17 21:00 Dose: 999 mls/hr Sodium Chloride (Normal Saline) 1,000 mls @ 150 mls/hr IV ASDIRECTED [facility] Last Admin: 02/08/17 06:14 Dose: 150 mls/hr Magnesium Sulfate 2 gm/ Premix 50 mls @ 50 mls/hr IV ONETIME ONE Stop: 02/06/17 17:18 Last Admin: 02/06/17 16:32 Dose: 50 mls/hr Iopamidol (Isovue Multipack-370 (76%)) 100 ml IVPUSH ONETIME STA Stop: 02/05/17 20:07 Last Admin: 02/05/17 20:07 Dose: 100 ml Ketorolac Tromethamine (Toradol) 30 mg IVPUSH ONETIME ONE Stop: 02/05/17 22:08 Last Admin: 02/05/17 22:26 Dose: 30 mg Lorazepam (Ativan) 1 mg PO ONETIME ONE Stop: 02/06/17 18:30 Last Admin: 02/06/17 18:41 Dose: 1 mg Metoprolol Tartrate (Lopressor) 5 mg IVPUSH ONETIME ONE Stop: 02/05/17 22:15 Last Admin: 02/05/17 22:27 Dose: 5 mg Metoprolol Tartrate (Lopressor) 5 mg IVPUSH ONETIME ONE Stop: 02/06/17 16:15 Last Admin: 02/06/17 16:50 Dose: Not Given Nicotine (Habitrol) 14 mg TRDERM ONETIME ONE Stop: 02/08/17 15:57 Ondansetron HCl (Zofran) 4 mg IVPUSH ONETIME ONE Stop: 02/05/17 19:31 Last Admin: 02/05/17 21:08 Dose: 4 mg Pantoprazole Sodium (Protonix Iv) 80 mg IVPUSH .BOLUS ONE Stop: 02/05/17 19:31 Last Admin: 02/05/17 21:00 Dose: 80 mg Thiamine HCl (Vitamin B-1) 100 mg PO DAILY [facility] Last Admin: 02/06/17 08:54 Dose: 100 mg - Exam General: Alert, Oriented HEENT: Pupils Equal, EOMI Neck: Supple, Trachea Midline Lungs: Clear to Auscultation, Normal Respiratory Effort Cardiovascular: Regular Rate, Regular Rhythm GI/Abdominal Exam: Normal Bowel Sounds Extremities: Normal Inspection Skin: Warm, Dry, Intact Neurological: No New Focal Deficit Psy/Mental Status: Alert, Normal Affect, Normal Mood - Problem List Review Problem List Initiated/Reviewed/Updated: Yes - Plan Plan:: 71 yo male admitted for ETOH withdrawal ETOH withdrawal: ciwaa 4: on Ativan protocol continue folic acid and thiamine, phosphate anticipate discharge tomorrow.
[2017-02-08] MEDS: Docusate Sodium 100 MG Cap PO SCH (20:32)
[2017-02-09 05:35] LABS: CHLORIDE,CL 104 mmol/L (98-110); SODIUM,NA 135 mmol/L (136-146)
[2017-02-09] MEDS: Phosphorus #1 250 MG Tab PO SCH ×2 (05:42→11:16)
[2017-02-09] MEDS: Folic Acid 50 MG/10 ML MDV SUBCUT SCH (08:24)
[2017-02-09] MEDS: Lisinopril 5 MG Tab PO SCH (08:25)
[2017-02-09] MEDS: Thiamine 100 MG in Sodium Chloride 0.9% 100 ML IV SCH (08:25)
[2017-02-09] MEDS: Docusate Sodium 100 MG Cap PO SCH (08:25)
[2017-02-09] MEDS ORDERED: Magnesium Sulfate/Water 2 GM in Premix Bag 1 BAG IV ONE (10:30)
[2017-02-09 11:24] VITALS: BP 148/84
--- NOTE | 2017-02-09 11:48 | PCM.DCSUM1 ---
Discharge Summary - Hospital Course Free Text/Narrative:: 71-year-old male with a history of hypertension diabetes for which she takes no medications and really has no primary care follow-up for over 2 years and is brought by family with complaints of diffuse abdominal pain that started this morning associated with several episodes of vomiting and generalized weakness. According to the patient he has no abdominal history but does have a long- standing history of alcohol use which he states mostly on the weekends and sometimes during the week. His family is concerned about his liver and states that he might drink more than he will admit to. The patient says the episodes of vomiting were clear fluid not bile lack or bloody and has had normal bowel movements without black or bloody stools. The patient says the abdominal pain is mostly in the upper abdomen but it is more diffuse now and he has had generalized weakness and difficulty ambulating due to weakness that started today. He has not had any falls. He has no focal weakness. The daughter also states that she's noticed that he's been progressively more confused intermittently over the last several weeks to months.He does not remember alot of things. He drinks 13 beers over weekend and does not drink during weekdays. He has no headache no chest pain no shortness of breath and is a chronic tobacco user but denies drug use. In the ED, His blood pressure was elevated 198 /115. RR 20's. IV Lopressor 5 mg x 1 given. Utox negative. CBC, BMP, lipase, amylase were unremarkable. Abdominal CT negative. During hospitilization he was experiencing alcohol withdrawal symptoms. His CIWAA score was 18. He was placed on ativan protocol. His electrolytes were repalced along with thiamine and folic acid. He improved. PT was consulted for weakness and deconditioning. He is discarged home with Lisinopril 5 mg po qd. Home Health agency to evaluate recent hospitalization and medications, oversee alcohol intake. PT/OT for strengthening, ambulation, home safety. He will be discharged with a walker. Dr. Charlton will follow the the patient. - Discharge Data Discharge Date: 02/09/17 Discharge Disposition: Home, W Home Health Agency 06 Condition: Fair - Patient Summary/Data Consults: Consultations 02/08/17 11:37 Consult to Physical Therapy [PT Evaluation and Treatment] [CONS] Routine - Patient Instructions Diet: No Alcoholic Beverages - Discharge Plan Prescriptions/Med Rec: Folic Acid 1 mg PO BEDTIME #30 tablet Phosphorus #1 [Neutra-Phos] 250 mg PO BID #30 tablet Thiamine [Vitamin B-1] 100 mg PO BEDTIME #30 tablet Home Medications: Home Meds Folic Acid 1 mg PO BEDTIME #30 tablet 02/09/17 [Rx] Lisinopril [Prinivil] 5 mg PO DAILY tablet 02/09/17 [Rx] Phosphorus #1 [Neutra-Phos] 250 mg PO BID #30 tablet 02/09/17 [Rx] Thiamine [Vitamin B-1] 100 mg PO BEDTIME #30 tablet 02/09/17 [Rx] Patient Handouts: Phosphorus Salts tablets, Alcohol Intoxication, [id number] , Thiamine, Vitamin B1 tablets, Folic Acid, Vitamin B9 tablets Forms: ED Department Discharge Referrals: Estevan Mendez MD [Physician] - 02/13/17 10:30 am - General Info Date of Service: 02/09/17 Functional Status: Reports: Pain Controlled, Tolerating Diet, Ambulating, Urinating - Review of Systems General: Reports: No Symptoms HEENT: Reports: No Symptoms Pulmonary: Reports: No Symptoms Cardiovascular: Reports: No Symptoms Gastrointestinal: Reports: No Symptoms Genitourinary: Reports: No Symptoms Musculoskeletal: Reports: Other (weakness ) Skin: Reports: No Symptoms Neurological: Reports: No Symptoms, Other (improved) Psychiatric: Reports: No Symptoms - Patient Data Vitals - Most Recent: Last Vital Signs Temp 98.2 F 02/09/17 11:23 Pulse 61 02/09/17 11:23 Resp 17 02/09/17 11:23 BP 148/84 H 02/09/17 11:23 Pulse Ox 97 02/09/17 11:23 Weight - Most Recent: 71.5 kg I&O - Last 24 hours: Intake & Output 02/08/17 02/09/17 02/09/17 22:59 06:59 14:59 Intake Total 980 880 Output Total 700 1570 Balance 280 -690 Lab Results - Last 24 hrs: Laboratory Results - last 24 hr 02/09/17 02/09/17 Range/Units 04:55 04:55 WBC 3.99 L (4.0-11.0) K/uL RBC 5.08 (4.50-5.90) M/uL Hgb 14.1 (13.0-17.0) g/dL Hct 42.4 (38.0-50.0) % MCV 83.5 (80.0-98.0) fL MCH 27.8 (27.0-32.0) pg MCHC 33.3 (31.0-37.0) g/dL RDW Std Deviation 42.9 (28.0-62.0) fl RDW Coeff of Rayshawn 14 (11.0-15.0) % Plt Count 131 L (150-400) K/uL MPV 9.40 (7.40-12.00) fL Neut % (Auto) 56.8 (48.0-80.0) % Lymph % (Auto) 29.8 (16.0-40.0) % [place] % (Auto) 12.3 (0.0-15.0) % Eos % (Auto) 0.8 (0.0-7.0) % Baso % (Auto) 0.3 (0.0-1.5) % Neut # (Auto) 2.3 (1.4-5.7) K/uL Lymph # (Auto) 1.2 (0.6-2.4) K/uL [place] # (Auto) 0.5 (0.0-0.8) K/uL Eos # (Auto) 0.0 (0.0-0.7) K/uL Baso # (Auto) 0.0 (0.0-0.1) K/uL Nucleated RBC % 0.0 /100WBC Nucleated RBCs # 0 K/uL Sodium 135 L (136-146) mmol/L Potassium 3.5 (3.5-5.1) mmol/L Chloride 104 (98-110) mmol/L Carbon Dioxide 23 (21-31) mmol/L BUN 9 (6.0-23.0) mg/dL Creatinine 0.8 (0.6-1.5) mg/dL Est Cr Clr Drug Dosing 86.89 mL/min Estimated GFR (MDRD) > 60.0 ml/min Glucose 121 H (60-110) mg/dL Calcium 8.3 L (8.8-10.8) mg/dL Phosphorus 2.4 (2.4-4.7) mg/dL Magnesium 1.3 L (1.5-2.3) mEq/L Med Orders - Current: Current Medications Docusate Sodium (Colace) 100 mg PO DAILY [facility] Last Admin: 02/09/17 08:25 Dose: 100 mg Folic Acid (Folic Acid) 1 mg SUBCUT DAILY [facility] Last Admin: 02/09/17 08:24 Dose: 1 mg Thiamine HCl 100 mg/ Sodium (Chloride) 101 mls @ 200 mls/hr IV DAILY [facility] Last Admin: 02/09/17 08:25 Dose: 200 mls/hr Lisinopril (Prinivil) 5 mg PO DAILY [facility] Last Admin: 02/09/17 08:25 Dose: 5 mg Lorazepam (Ativan) 0 mg IVPUSH Q4H PRN; Protocol PRN Reason: agitation/withdrawal Last Admin: 02/07/17 03:20 Dose: 2 mg Sodium Chloride (Saline Flush) 10 ml FLUSH ASDIRECTED PRN PRN Reason: Keep Vein Open Last Admin: 02/05/17 21:02 Dose: 10 ml Sodium Chloride (Saline Flush) 2.5 ml FLUSH ASDIRECTED PRN PRN Reason: Keep Vein Open Last Admin: 02/05/17 21:03 Dose: 2.5 ml Sodium Phosphate (Neutra-Phos) 250 mg PO QID [facility] Last Admin: 02/09/17 11:16 Dose: 250 mg Discontinued Medications Sodium Chloride (Normal Saline) 1,000 mls @ 999 mls/hr IV STAT ONE Stop: 02/05/17 20:30 Last Admin: 02/05/17 21:00 Dose: 999 mls/hr Sodium Chloride (Normal Saline) 1,000 mls @ 150 mls/hr IV ASDIRECTED [facility] Last Admin: 02/08/17 06:14 Dose: 150 mls/hr Magnesium Sulfate 2 gm/ Premix 50 mls @ 50 mls/hr IV ONETIME ONE Stop: 02/06/17 17:18 Last Admin: 02/06/17 16:32 Dose: 50 mls/hr Magnesium Sulfate 2 gm/ Premix 50 mls @ 50 mls/hr IV ONETIME ONE Stop: 02/09/17 11:29 Last Admin: 02/09/17 10:43 Dose: 50 mls/hr Iopamidol (Isovue Multipack-370 (76%)) 100 ml IVPUSH ONETIME STA Stop: 02/05/17 20:07 Last Admin: 02/05/17 20:07 Dose: 100 ml Ketorolac Tromethamine (Toradol) 30 mg IVPUSH ONETIME ONE Stop: 02/05/17 22:08 Last Admin: 02/05/17 22:26 Dose: 30 mg Lorazepam (Ativan) 1 mg PO ONETIME ONE Stop: 02/06/17 18:30 Last Admin: 02/06/17 18:41 Dose: 1 mg Metoprolol Tartrate (Lopressor) 5 mg IVPUSH ONETIME ONE Stop: 02/05/17 22:15 Last Admin: 02/05/17 22:27 Dose: 5 mg Metoprolol Tartrate (Lopressor) 5 mg IVPUSH ONETIME ONE Stop: 02/06/17 16:15 Last Admin: 02/06/17 16:50 Dose: Not Given Nicotine (Habitrol) 14 mg TRDERM ONETIME ONE Stop: 02/08/17 15:57 Last Admin: 02/08/17 16:35 Dose: 14 mg Ondansetron HCl (Zofran) 4 mg IVPUSH ONETIME ONE Stop: 02/05/17 19:31 Last Admin: 02/05/17 21:08 Dose: 4 mg Pantoprazole Sodium (Protonix Iv) 80 mg IVPUSH .BOLUS ONE Stop: 02/05/17 19:31 Last Admin: 02/05/17 21:00 Dose: 80 mg Thiamine HCl (Vitamin B-1) 100 mg PO DAILY [facility] Last Admin: 02/06/17 08:54 Dose: 100 mg - Exam General: Reports: Alert, Oriented HEENT: Reports: Pupils Equal, EOMI Neck: Reports: Supple, Trachea Midline Lungs: Reports: Clear to Auscultation, Normal Respiratory Effort Cardiovascular: Reports: Regular Rate, Regular Rhythm GI/Abdominal Exam: Normal Bowel Sounds, Soft Back Exam: Reports: Normal Inspection, Full Range of Motion Extremities: Other (unsteady gait when walking) Skin: Reports: Warm, Dry Neurological: Reports: No New Focal Deficit Psy/Mental Status: Reports: Alert, Normal Affect, Normal Mood *Q Meaningful Use (DIS) - VTE *Q VTE Criteria *Q: - Stroke *Q Stroke Criteria *Q: - AMI *Q AMI Criteria *Q:
== END 2017-02-09 14:30 | disposition home health service (06) | DRG 392 ==
LOC: MW.ED 19:16 → MW.MS 23:03 → UNDOADMOB 23:03 → MW.MS 02-06 00:15 → OBSVTOIN 02-07 09:10
PROVIDERS: ADMIT Internal Medicine; ATTEND Internal Medicine
DX: R10.84 Generalized abdominal pain (principal); F17.200 Nicotine dependence, unspecified, uncomplicated; R10.9 Unspecified abdominal pain; F10.239 Alcohol dependence with withdrawal, unspecified; R11.2 Nausea with vomiting, unspecified; I10 Essential (primary) hypertension; E11.9 Type 2 diabetes mellitus without complications
CPT/HCPCS: 36415 ×3; 70450; 71101; 74177; 80048; 80053; 81001; 82009; 82140; 82150; 82962; 83690; 83735 ×2; 84100 ×2; 84484 ×3; 85025 ×2; 85610; 93005; 96361 ×4; 96372 ×2; 96374; 96375 ×2; 96376; 99285; A9270 ×5; C9113; G0378 ×2; G0480; J1885; J2060 ×2; J2405; J3411 ×2; J3475; J7030 ×2; J7040 ×7; Q9967; 97161-GP; 97530-GP

== ENCOUNTER 2017-02-20 09:29 | Emergency (ER) | payer MEDICARE, MEDICAID ==
[2017-02-20] MEDS ORDERED: Thiamine 100 MG in Sodium Chloride 0.9% 100 ML IV ONE (10:32)
[2017-02-20] MEDS ORDERED: Sodium Chloride 0.9% 1,000 ML IV ONE (10:32)
--- NOTE | 2017-02-20 10:41 | EDM.PDOC ---
ED HPI GENERAL MEDICAL PROBLEM - General Chief Complaint: General Stated Complaint: DIZZINESS Time Seen by Provider: 02/20/17 10:35 Source of Information: Reports: Patient History Limitations: Reports: No Limitations - History of Present Illness INITIAL COMMENTS - FREE TEXT/NARRATIVE: History of present illness: [71-year-old male brought in by daughter with concerns of weakness, malaise, and dizziness. Daughter shares that the patient has a known problem with alcohol but that he has restrained his drinking to just sporadic binges. Patient apparently has a family member that is supposed to be helping him around the house as well as reminding him to take his medicine but that seems to only occurred 3 times in the last 7-10 days. In light of this patient has only taken 3 days of medication in the last 7-10 days.] Review of systems: As per history of present illness and below otherwise all systems reviewed and negative. Past medical history: As per history of present illness and as reviewed below otherwise noncontributory. Surgical history: As per history of present illness and as reviewed below otherwise noncontributory. Social history: No reported history of drug or alcohol abuse. Family history: As per history of present illness and as reviewed below otherwise noncontributory. Physical exam: HEENT: Atraumatic, normocephalic, pupils reactive, negative for conjunctival pallor or scleral icterus, mucous membranes moist, throat clear, neck supple, nontender, trachea midline. Lungs: Clear to auscultation, breath sounds equal bilaterally, chest nontender. Heart: S1S2, regular, negative for clicks, rubs, or JVD. Abdomen: Soft, nondistended, nontender. Negative for masses or hepatosplenomegaly. Negative for costovertebral tenderness. Pelvis: Stable nontender. Genitourinary: Deferred. Rectal: Deferred. Extremities: Atraumatic, negative for cords or calf pain. Neurovascular unremarkable. Neuro: Awake, alert, oriented. Cranial nerves II through XII unremarkable. Cerebellum unremarkable. Motor and sensory unremarkable throughout. Exam nonfocal. Patient looks somewhat decompensated and old 89. But in light of smoking and drinking this would be consistent with his appearance. Patient's Global assessment is benign save the bradycardia as is noted on the monitor Diagnostics: [CBC, CMP] Therapeutics: [Banana bag] Impression: [Sinus bradycardia] Plan: [Admit to hospital observation] Definitive disposition and diagnosis as appropriate pending reevaluation and review of above. - Related Data Allergies Allergy/AdvReac Type Severity Reaction Status Date / Time No Known Allergies Allergy Verified 02/20/17 10:17 Home Meds: Home Meds Folic Acid 1 mg PO BEDTIME #30 tablet 02/09/17 [Rx] Lisinopril [Prinivil] 5 mg PO DAILY tablet 02/09/17 [Rx] Phosphorus #1 [Neutra-Phos] 250 mg PO BID #30 tablet 02/09/17 [Rx] Thiamine [Vitamin B-1] 100 mg PO BEDTIME #30 tablet 02/09/17 [Rx] Past Medical History HEENT History: Reports: None Cardiovascular History: Reports: Hypertension Respiratory History: Reports: Other (See Below) Other Respiratory History: smoker Gastrointestinal History: Reports: None Genitourinary History: Reports: None Musculoskeletal History: Reports: None Neurological History: Reports: None Psychiatric History: Reports: None Endocrine/Metabolic History: Reports: Diabetes, Type II Hematologic History: Reports: None Oncologic (Cancer) History: Reports: None Dermatologic History: Reports: None - Infectious Disease History Infectious Disease History: Reports: None - Past Surgical History Male Surgical History: Reports: None Social & Family History - Family History Family Medical History: Noncontributory - Tobacco Use Smoking Status *Q: Current Every Day Smoker Years of Tobacco use: 50 Packs/Tins Daily: 1.5 Second Hand Smoke Exposure: Yes - Caffeine Use Caffeine Use: Reports: Coffee, Soda - Alcohol Use Number of Drinks Per Day: 10 - Recreational Drug Use Recreational Drug Use: Yes Drug Use in Last 12 Months: Yes Recreational Drug Type: Reports: Marijuana/Hashish Recreational Drug Use Frequency: Binges ED ROS GENERAL - Review of Systems Review Of Systems: See Below (History of present illness) ED EXAM, GENERAL - Physical Exam Exam: See Below (See history of present illness) Course - Vital Signs Last Recorded V/S: Last Vital Signs Temp 35.9 C 02/20/17 10:17 Pulse 45 L 02/20/17 11:02 Resp 19 02/20/17 11:02 BP 143/66 H 02/20/17 11:02 Pulse Ox 94 L 02/20/17 11:02 - Orders/Labs/Meds Orders: Active Orders 24 hr Category Date Time Status EKG 12 Lead [EKG Documentation Completion] [RC] STAT Care 02/20/17 11:47 Active EKG Documentation Completion [RC] STAT Care 02/20/17 10:30 Active MVI, Adult with Vitamin K [Infuvite Adult] 10 ml Med 02/20/17 10:43 Active Thiamine [Vitamin B-1] 100 mg Folic Acid 1 mg Sodium Chloride 0.9% [Normal Saline] 1,000 ml IV ONETIME Medication Orders Multivitamins/Minerals 10 ml/Thiamine HCl 100 mg/ Folic Acid 1 mg/ Sodium Chloride 1,011.2 mls @ 125 mls/hr IV ONETIME ONE Stop: 02/20/17 18:48 Last Admin: 02/20/17 11:01 Dose: 125 mls/hr Labs: Laboratory Tests 02/20/17 02/20/17 02/20/17 Range/Units 10:25 10:25 10:25 WBC 6.17 (4.0-11.0) K/uL RBC 5.37 (4.50-5.90) M/uL Hgb 15.3 (13.0-17.0) g/dL Hct 46.1 (38.0-50.0) % MCV 85.8 (80.0-98.0) fL MCH 28.5 (27.0-32.0) pg MCHC 33.2 (31.0-37.0) g/dL RDW Std Deviation 43.6 (28.0-62.0) fl RDW Coeff of Rayshawn 14 (11.0-15.0) % Plt Count 248 (150-400) K/uL MPV 9.20 (7.40-12.00) fL Neut % (Auto) 68.7 (48.0-80.0) % Lymph % (Auto) 23.0 (16.0-40.0) % [place]ombs % (Auto) 5.7 (0.0-15.0) % Eos % (Auto) 2.3 (0.0-7.0) % Baso % (Auto) 0.3 (0.0-1.5) % Neut # (Auto) 4.2 (1.4-5.7) K/uL Lymph # (Auto) 1.4 (0.6-2.4) K/uL [place]ombs # (Auto) 0.4 (0.0-0.8) K/uL Eos # (Auto) 0.1 (0.0-0.7) K/uL Baso # (Auto) 0.0 (0.0-0.1) K/uL Nucleated RBC % 0.0 /100WBC Nucleated RBCs # 0 K/uL Sodium 138 (136-146) mmol/L Potassium 4.0 (3.5-5.1) mmol/L Chloride 102 (98-110) mmol/L Carbon Dioxide 26 (21-31) mmol/L BUN 15 (6.0-23.0) mg/dL Creatinine 1.1 (0.6-1.5) mg/dL Est Cr Clr Drug Dosing 64.14 mL/min Estimated GFR (MDRD) > 60.0 ml/min Glucose 111 H (60-110) mg/dL Calcium 9.9 (8.8-10.8) mg/dL Total Bilirubin 0.6 (0.1-1.5) mg/dL AST 24 (5-40) IU/L ALT 18 (8-54) IU/L Alkaline Phosphatase 84 (40-150) Troponin I < 0.10 (0.0-0.29) NG/ML Total Protein 8.1 H (6.0-8.0) g/dL Albumin 4.4 (3.4-4.8) g/dL Globulin 3.7 H (2.0-3.5) g/dL Albumin/Globulin Ratio 1.2 L (1.3-2.8) Meds: Medications Generic Name Dose Route Start Last Admin Trade Name Freq PRN Reason Stop Dose Admin Multivitamins/Minerals 10 ml/ 1,011.2 mls @ 125 mls/hr 02/20/17 10:43 11:01 Thiamine HCl 100 mg/ Folic IV 02/20/17 18:48 125 mls/hr Acid 1 mg/ Sodium Chloride ONETIME ONE Administration Departure - Departure Time of Disposition: 12:32 Disposition: Refer to Observation Condition: Good Clinical Impression: Bradycardia with 41-50 beats per minute - Discharge Information Forms: ED Department Discharge - My Orders Last 24 Hours: My Active Orders 02/20/17 10:30 EKG Documentation Completion [RC] STAT 02/20/17 10:43 MVI, Adult with Vitamin K [Infuvite Adult] 10 ml Thiamine [Vitamin B-1] 100 mg Folic Acid 1 mg Sodium Chloride 0.9% [Normal Saline] 1,000 ml IV ONETIME 02/20/17 11:47 EKG 12 Lead [EKG Documentation Completion] [RC] STAT - Assessment/Plan Last 24 Hours: My Active Orders 02/20/17 10:30 EKG Documentation Completion [RC] STAT 02/20/17 10:43 MVI, Adult with Vitamin K [Infuvite Adult] 10 ml Thiamine [Vitamin B-1] 100 mg Folic Acid 1 mg Sodium Chloride 0.9% [Normal Saline] 1,000 ml IV ONETIME 02/20/17 11:47 EKG 12 Lead [EKG Documentation Completion] [RC] STAT
[2017-02-20] MEDS ORDERED: MVI, Adult with Vitamin K 10 ML, Thiamine 100 MG, Folic Acid 1 MG in Sodium Chloride 0.... IV ONE ×4 (10:43)
[2017-02-20 10:57] LABS: CHLORIDE,CL 102 mmol/L (98-110); SODIUM,NA 138 mmol/L (136-146)
--- NOTE | 2017-02-20 11:40 | CT ---
CT brain scan Comparison is made to prior study February 05, 2017. Again seen on comparison to the prior examination is dense vertebral basilar calcification. This is most prominent in the right vertebral artery just prior to finding with the a sliver artery. Again s een as well as diffuse white matter low attenuation consistent with likely small vessel microvascula r ischemic changes of aging with slightly more pronounced character in the right centrum semiovale. The study is not changed substantially or significantly from the prior examination showing moderate cortical atrophy. Impression: Senescent brain. Vertebrobasilar calcific disease. No acute mass edema or hemorrhage chantelle pected.
[2017-02-20 13:29] VITALS: BP 181/98
== END 2017-02-20 14:03 ==
LOC: MW.ED 09:29
DX: R00.1 Bradycardia, unspecified (principal); I10 Essential (primary) hypertension; E11.9 Type 2 diabetes mellitus without complications; F17.210 Nicotine dependence, cigarettes, uncomplicated; Z79.899 Other long term (current) drug therapy
CPT/HCPCS: 70450; 80053; 84484; 85025; 93005; 96365; 96366; 99285; J3411; J7040

== ENCOUNTER 2017-03-27 19:18 | Inpatient (IN) | payer MEDICARE, MEDICAID ==
--- NOTE | 2017-03-27 19:41 | EDM.PDOC ---
ED HPI GENERAL MEDICAL PROBLEM - General Chief Complaint: General Stated Complaint: UNSTEADY ON LEGS- UNABLE TO WALK Time Seen by Provider: 03/27/17 19:32 - History of Present Illness INITIAL COMMENTS - FREE TEXT/NARRATIVE: HISTORY AND PHYSICAL: History of present illness: Patient a 71-year-old white male presents with a concern of unsteady gait and generalized weakness with inability to ambulate since yesterday he's had some unsteadiness in daughter describes this as leaning to one side over the last several weeks this is got progressively worse to the point where he literally was crawling around since yesterday per daughter they did not seek medical care yesterday due to father's reluctance to come to the ER. He denies chest pain shortness of breath history of stroke he did recently have a pacemaker placed he denies chest pain shortness of breath or other concern he does drink regularly and is a smoker. Review of systems: As per history of present illness and below otherwise all systems reviewed and negative. Past medical history: As per history of present illness and as reviewed below otherwise noncontributory. Surgical history: As per history of present illness and as reviewed below otherwise noncontributory. Social history: No reported history of drug or alcohol abuse. Family history: As per history of present illness and as reviewed below otherwise noncontributory. Physical exam: HEENT: Atraumatic, normocephalic, pupils reactive, negative for conjunctival pallor or scleral icterus, mucous membranes moist, throat clear, neck supple, nontender, trachea midline. Lungs: Clear to auscultation, breath sounds equal bilaterally, chest nontender. Heart: S1S2, regular, negative for clicks, rubs, or JVD. Abdomen: Soft, nondistended, nontender. Negative for masses or hepatosplenomegaly. Negative for costovertebral tenderness. Pelvis: Stable nontender. Genitourinary: Deferred. Rectal: Deferred. Extremities: Atraumatic, negative for cords or calf pain. Neurovascular unremarkable. Neuro: Awake, alert, oriented. Cranial nerves II through XII unremarkable. Patient follows commands does move all extremities is no gross motor or sensory deficits exam is limited but grossly nonfocal Diagnostics: CBC CMP troponin PT/INR chest x-ray EKG CT brain UA Therapeutics: IV O2 monitor thiamine 100 mg IV Impression: #1 generalized weakness with inability to ambulate #2 rule out alcohol abuse #3 history of pacemaker Definitive disposition and diagnosis as appropriate pending reevaluation and review of above. - Related Data Allergies Allergy/AdvReac Type Severity Reaction Status Date / Time No Known Allergies Allergy Verified 03/27/17 19:27 Home Meds: Home Meds Folic Acid 1 mg PO BEDTIME #30 tablet 02/09/17 [Rx] Thiamine [Vitamin B-1] 100 mg PO BEDTIME #30 tablet 02/09/17 [Rx] Levothyroxine 25 mcg PO DAILY 03/27/17 [History] Lisinopril [Prinivil] 10 mg PO DAILY 03/27/17 [History] Past Medical History HEENT History: Reports: None Cardiovascular History: Reports: Hypertension Respiratory History: Reports: Other (See Below) Other Respiratory History: smoker Gastrointestinal History: Reports: None Genitourinary History: Reports: None Musculoskeletal History: Reports: None Neurological History: Reports: None Psychiatric History: Reports: None Endocrine/Metabolic History: Reports: Diabetes, Type II Hematologic History: Reports: None Oncologic (Cancer) History: Reports: None Dermatologic History: Reports: None - Infectious Disease History Infectious Disease History: Reports: None - Past Surgical History Male Surgical History: Reports: None Social & Family History - Family History Family Medical History: Noncontributory - Tobacco Use Smoking Status *Q: Current Every Day Smoker Years of Tobacco use: 50 Packs/Tins Daily: 1.5 Second Hand Smoke Exposure: Yes - Caffeine Use Caffeine Use: Reports: Coffee, Soda - Alcohol Use Number of Drinks Per Day: 10 - Recreational Drug Use Recreational Drug Use: Yes Drug Use in Last 12 Months: Yes Recreational Drug Type: Reports: Marijuana/Hashish Recreational Drug Use Frequency: Binges ED ROS GENERAL - Review of Systems Review Of Systems: ROS reveals no pertinent complaints other than HPI. ED EXAM, GENERAL - Physical Exam Exam: See Below (See dictation) Course - Vital Signs Last Recorded V/S: Last Vital Signs Temp 36.5 C 03/27/17 19:27 Pulse 56 L 03/27/17 20:19 Resp 17 03/27/17 20:19 BP 162/92 H 03/27/17 20:19 Pulse Ox 95 03/27/17 20:19 - Orders/Labs/Meds Orders: Active Orders 24 hr Category Date Time Status Cardiac Monitoring [RC] . DIRECTED Care 03/27/17 19:35 Active EKG Documentation Completion [RC] STAT Care 03/27/17 19:35 Active Chest 1V Frontal [CR] Stat Exams 03/27/17 19:37 Taken Head wo Cont [CT] Stat Exams 03/27/17 19:35 Taken CULTURE URINE [RM] Stat Lab 03/27/17 19:37 Uncollected URINALYSIS W/MICROSCOPIC [UA W/MICROSCOPIC] [URIN] Stat Lab 03/27/17 19:37 Uncollected Sodium Chloride 0.9% [Normal Saline] 1,000 ml Med 03/27/17 19:45 Active IV ASDIRECTED Medication Orders Sodium Chloride (Normal Saline) 1,000 mls @ 125 mls/hr IV ASDIRECTED RICO Last Admin: 03/27/17 20:15 Dose: 125 mls/hr Labs: Laboratory Tests 03/27/17 03/27/17 03/27/17 Range/Units 19:50 19:50 19:50 WBC 6.24 (4.0-11.0) K/uL RBC 5.02 (4.50-5.90) M/uL Hgb 14.5 (13.0-17.0) g/dL Hct 43.1 (38.0-50.0) % MCV 85.9 (80.0-98.0) fL MCH 28.9 (27.0-32.0) pg MCHC 33.6 (31.0-37.0) g/dL RDW Std Deviation 43.4 (28.0-62.0) fl RDW Coeff of Rayshawn 14 (11.0-15.0) % Plt Count 208 (150-400) K/uL MPV 9.30 (7.40-12.00) fL Neut % (Auto) 72.9 (48.0-80.0) % Lymph % (Auto) 19.1 (16.0-40.0) % Morrow % (Auto) 6.7 (0.0-15.0) % Eos % (Auto) 1.0 (0.0-7.0) % Baso % (Auto) 0.3 (0.0-1.5) % Neut # (Auto) 4.6 (1.4-5.7) K/uL Lymph # (Auto) 1.2 (0.6-2.4) K/uL [place]row # (Auto) 0.4 (0.0-0.8) K/uL Eos # (Auto) 0.1 (0.0-0.7) K/uL Baso # (Auto) 0.0 (0.0-0.1) K/uL Nucleated RBC % 0.0 /100WBC Nucleated RBCs # 0 K/uL INR 1.04 (0.86-1.11) Sodium 136 (136-146) mmol/L Potassium 4.4 (3.5-5.1) mmol/L Chloride 102 (98-110) mmol/L Carbon Dioxide 27 (21-31) mmol/L BUN 18 (6.0-23.0) mg/dL Creatinine 1.2 (0.6-1.5) mg/dL Est Cr Clr Drug Dosing 58.74 mL/min Estimated GFR (MDRD) 59.9 ml/min Glucose 218 H (60-110) mg/dL Calcium 10.0 (8.8-10.8) mg/dL Total Bilirubin 0.3 (0.1-1.5) mg/dL AST 16 (5-40) IU/L ALT 17 (8-54) IU/L Alkaline Phosphatase 72 (40-150) Troponin I (0.0-0.29) NG/ML Total Protein 6.8 (6.0-8.0) g/dL Albumin 3.8 (3.4-4.8) g/dL Globulin 3.0 (2.0-3.5) g/dL Albumin/Globulin Ratio 1.3 (1.3-2.8) 03/27/17 Range/Units 19:50 WBC (4.0-11.0) K/uL RBC (4.50-5.90) M/uL Hgb (13.0-17.0) g/dL Hct (38.0-50.0) % MCV (80.0-98.0) fL MCH (27.0-32.0) pg MCHC (31.0-37.0) g/dL RDW Std Deviation (28.0-62.0) fl RDW Coeff of Rayshawn (11.0-15.0) % Plt Count (150-400) K/uL MPV (7.40-12.00) fL Neut % (Auto) (48.0-80.0) % Lymph % (Auto) (16.0-40.0) % Morrow % (Auto) (0.0-15.0) % Eos % (Auto) (0.0-7.0) % Baso % (Auto) (0.0-1.5) % Neut # (Auto) (1.4-5.7) K/uL Lymph # (Auto) (0.6-2.4) K/uL Morrow # (Auto) (0.0-0.8) K/uL Eos # (Auto) (0.0-0.7) K/uL Baso # (Auto) (0.0-0.1) K/uL Nucleated RBC % /100WBC Nucleated RBCs # K/uL INR (0.86-1.11) Sodium (136-146) mmol/L Potassium (3.5-5.1) mmol/L Chloride (98-110) mmol/L Carbon Dioxide (21-31) mmol/L BUN (6.0-23.0) mg/dL Creatinine (0.6-1.5) mg/dL Est Cr Clr Drug Dosing mL/min Estimated GFR (MDRD) ml/min Glucose (60-110) mg/dL Calcium (8.8-10.8) mg/dL Total Bilirubin (0.1-1.5) mg/dL AST (5-40) IU/L ALT (8-54) IU/L Alkaline Phosphatase (40-150) Troponin I < 0.10 (0.0-0.29) NG/ML Total Protein (6.0-8.0) g/dL Albumin (3.4-4.8) g/dL Globulin (2.0-3.5) g/dL Albumin/Globulin Ratio (1.3-2.8) Meds: Medications Generic Name Dose Route Start Last Admin Trade Name Freq PRN Reason Stop Dose Admin Sodium Chloride 1,000 mls @ 125 mls/hr 03/27/17 19:45 03/27/17 20:15 Normal Saline IV 125 mls/hr ASDIRECTED RICO Administration Discontinued Medications Generic Name Dose Route Start Last Admin Trade Name Freq PRN Reason Stop Dose Admin Thiamine HCl 100 mg/ Sodium 101 mls @ 202 mls/hr 03/27/17 19:44 03/27/17 20: 17 Chloride IV 03/27/17 19:45 202 mls/hr ONETIME ONE Administration Thiamine HCl 100 mg/ Sodium 101 mls @ 202 mls/hr 03/27/17 20:15 03/27/17 20: 24 Chloride IV 03/27/17 20:44 Not Given ONETIME ONE Departure - Departure Time of Disposition: 20:46 Disposition: Refer to Observation Condition: Good Clinical Impression: Weakness, Gait disturbance - Discharge Information Referrals: PCP,None [Primary Care Provider] - Forms: ED Department Discharge - My Orders Last 24 Hours: My Active Orders 03/27/17 19:35 Cardiac Monitoring [RC] . DIRECTED EKG Documentation Completion [RC] STAT Head wo Cont [CT] Stat 03/27/17 19:37 Chest 1V Frontal [CR] Stat CULTURE URINE [RM] Stat URINALYSIS W/MICROSCOPIC [UA W/MICROSCOPIC] [URIN] Stat 03/27/17 19:45 Sodium Chloride 0.9% [Normal Saline] 1,000 ml IV ASDIRECTED - Assessment/Plan Last 24 Hours: My Active Orders 03/27/17 19:35 Cardiac Monitoring [RC] . DIRECTED EKG Documentation Completion [RC] STAT Head wo Cont [CT] Stat 03/27/17 19:37 Chest 1V Frontal [CR] Stat CULTURE URINE [RM] Stat URINALYSIS W/MICROSCOPIC [UA W/MICROSCOPIC] [URIN] Stat 03/27/17 19:45 Sodium Chloride 0.9% [Normal Saline] 1,000 ml IV ASDIRECTED
[2017-03-27] MEDS ORDERED: Thiamine 100 MG in Sodium Chloride 0.9% 100 ML IV ONE ×2 (19:44→20:15)
[2017-03-27] MEDS ORDERED: Sodium Chloride 0.9% 1,000 ML IV SCH (19:45)
[2017-03-27] MEDS ORDERED: MVI, Adult with Vitamin K 10 ML SDV IV ONE (22:44)
[2017-03-27] MEDS ORDERED: Morphine 2 MG/ML Syringe IVPUSH PRN (23:36)
[2017-03-27] MEDS ORDERED: oxyCODONE 5 MG Tab PO PRN (23:36)
[2017-03-27] MEDS ORDERED: MVI, Adult with Vitamin K 10 ML in Sodium Chloride 0.9% 1,000 ML IV ONE ×2 (23:45)
[2017-03-28] MEDS ORDERED: NS IV ONE ×4
[2017-03-28] MEDS ORDERED: MVI IV ONE ×4
[2017-03-28] MEDS ORDERED: FOLIC ACID IV ONE ×4
[2017-03-28] MEDS ORDERED: THIAMINE IV ONE ×4
[2017-03-28] MEDS: Insulin Aspart 100 Units/ML 3 ML Pen SUBCUT SCH ×5 (00:56→20:30)
[2017-03-28 05:15] LABS: CHLORIDE,CL 103 mmol/L (98-110); SODIUM,NA 134 mmol/L (136-146)
[2017-03-28] MEDS: Levothyroxine 25 MCG Tab PO SCH (06:35)
[2017-03-28] MEDS: Folic Acid 1 MG Tab PO SCH (09:16)
[2017-03-28] MEDS: Thiamine 100 MG Tab PO SCH (09:16)
[2017-03-28] MEDS: Lisinopril 10 MG Tab PO SCH (09:16)
--- NOTE | 2017-03-28 10:11 | CT ---
EXAM DATE: 03/27/17 PATIENT'S AGE: 71 Patient: NEDRA ELMORE Facility: [place], [place] Site . Site : 1945 Study: CT Head [id number]/12/2017 8:07:11 PM Ordering Physician: Lala Aguila Final Report: INDICATION: WEAKNESS TECHNIQUE: CT Head without contrast. COMPARISON: 02/20/2017 FINDINGS: There is no sign of intracranial hemorrhage or mass effect. Diffuse cerebral atrophy. Nonspecific low-attenuation along the periventricular white matter, most likely related to chronic microvascular disease. The mullen-white differentiation is preserved. No abnormal intra-axial or extra-axial fluid collection. No acute disease of the visualized paranasal sinuses and mastoid air cells. No fracture evident. No scalp hematoma/laceration. IMPRESSION: No acute intracranial process. Dictated by: Lino Odom MD @ 03/27/2017 20:40:28 (Electronic Signature) Report Signed by Proxy. [facility] LONG ISLANDSilva
--- NOTE | 2017-03-28 10:12 | CR ---
EXAM DATE: 03/27/17 PATIENT'S AGE: 71 Patient: NEDRA ELMORE Facility: [place], [place] Site . Site : 1945 Study: XRay Chest [id number]/12/2017 8:08:30 PM Ordering Physician: Lala Aguila Final Report: INDICATION: WEAKNESS HISTORY: Weakness. COMPARISON: 02/06/2017. TECHNIQUE: Chest one-view portable. FINDINGS: media monitor leads overlie the patient. Left subclavian transvenous pacemaker device. Leads are continuous. Leads are in the expected location of the right atrium and right ventricle. The pacemaker device is new from previous. Pulmonary hyperinflation. No acute airspace disease or pneumothorax. IMPRESSION: 1. Left subclavian transvenous pacemaker device, new from previous. 2. Lungs are hyperinflated. No acute airspace disease. Dictated by Zhen Diego MD @ 03/27/2017 8:42:45 PM Dictated by: Zhen Diego MD @ 03/27/2017 20:43:03 (Electronic Signature) Report Signed by Proxy. [facility]ALSilva
[2017-03-28] MEDS ORDERED: Morphine 10 MG/ML Syringe IVPUSH PRN (10:32)
[2017-03-28] MEDS ORDERED: oxyCODONE 5 MG Tab PO PRN (10:32)
--- NOTE | 2017-03-28 10:59 | PCM.HP ---
H&P History of Present Illness - General Date of Service: 03/28/17 Admit Problem/Dx: Admission Diagnosis/Problem Admission Diagnosis/Problem Dementia without behavioral disturbance Source of Information: Patient, Family History Limitations: Reports: Altered Mental Status - History of Present Illness Onset of Symptoms: Reports: Unknown/Unsure Location: Reports: Generalized Severity: Mild Improves with: Reports: None Worsens with: Reports: None Associated Symptoms: Reports: Weakness - Related Data Allergies/Adverse Reactions: Allergies Allergy/AdvReac Type Severity Reaction Status Date / Time No Known Allergies Allergy Verified 03/27/17 19:27 Home Medications: Home Meds Folic Acid 1 mg PO BEDTIME #30 tablet 02/09/17 [Rx] Thiamine [Vitamin B-1] 100 mg PO BEDTIME #30 tablet 02/09/17 [Rx] Levothyroxine 25 mcg PO DAILY 03/27/17 [History] Lisinopril [Prinivil] 10 mg PO DAILY 03/27/17 [History] Past Medical History HEENT History: Reports: None Cardiovascular History: Reports: Hypertension, Pacemaker Other Cardiovascular History: bradycardia Respiratory History: Reports: Other (See Below) Other Respiratory History: smoker Gastrointestinal History: Reports: GERD Genitourinary History: Reports: None Musculoskeletal History: Reports: None Neurological History: Reports: Other (See Below) (Alcohol-related dementia) Psychiatric History: Reports: None Endocrine/Metabolic History: Reports: Diabetes, Type II Hematologic History: Reports: None Oncologic (Cancer) History: Reports: None Dermatologic History: Reports: None - Infectious Disease History Infectious Disease History: Reports: None - Past Surgical History Male Surgical History: Reports: None Social & Family History - Family History Family Medical History: Noncontributory - Tobacco Use Smoking Status *Q: Current Every Day Smoker Years of Tobacco use: 30 Packs/Tins Daily: 1.5 Used Tobacco, but Quit: No Second Hand Smoke Exposure: Yes - Caffeine Use Caffeine Use: Reports: Coffee - Alcohol Use Alcohol Use History: Yes Number of Drinks Per Day: 6 Date of Last Drink: 03/25/17 Alcohol Use Frequency: Daily - Recreational Drug Use Recreational Drug Use: No Drug Use in Last 12 Months: Yes Recreational Drug Type: Reports: Marijuana/Hashish Recreational Drug Use Frequency: Binges H&P Review of Systems - Review of Systems: Review Of Systems: Unable To Obtain Free Text/Narrative: Patient not alert and oriented 3 alert only to person. Exam - Exam Exam: See Below - Vital Signs Vital Signs: Last Vital Signs Temp 36.4 C 03/28/17 08:00 Pulse 60 03/28/17 08:00 Resp 22 H 03/28/17 08:00 BP 169/81 H 03/28/17 09:16 Pulse Ox 98 03/28/17 10:33 Weight: 69.5 kg - Exam Quality Assessment: No: Supplemental Oxygen General: Lethargic, Other (The patient is cachectic, unkept). No: Alert, Oriented HEENT: Conjunctiva Clear. No: Mucosa Moist & [place] Neck: Supple Lungs: Normal Respiratory Effort, Crackles Cardiovascular: Regular Rate, Regular Rhythm GI/Abdominal Exam: Normal Bowel Sounds, Soft, Non-Tender (No reaction) Back Exam: Decreased Range of Motion Extremities: No Pedal Edema Skin: Warm, Dry, Other (Owen complexion, weathered skin) Neurological: Cranial Nerves Intact Neuro Extensive - Mental Status: Disorientation to Place, Disorientation to Time , Inattentive. No: Alert, Oriented x3 Psychiatric: Normal Affect - Patient Data Result Diagrams: 03/28/17 04:16 03/28/17 04:16 *Q Meaningful Use (ADM) - VTE *Q VTE Criteria *Q: VTE Mechanical Contraindications *Q: At Risk for Falls - VTE Risk Assess *Q Each Risk Factor Represents 1 Point: None Total Score 1 Point Risk Factors: 0 Each Risk Factor Represents 2 Points: Age 60 - 74 Years Total Score 2 Point Risk Factors: 2 - Stroke *Q Stroke Criteria *Q: - AMI *Q AMI Criteria *Q: - Problem List (1) Altered mental status SNOMED Code(s): 492052252 ICD Code: R41.82 - ALTERED MENTAL STATUS, UNSPECIFIED Status: Acute Priority: High Current Visit: Yes Qualifiers: Altered mental status type: transient alteration of awareness Qualified Code(s): R40.4 - Transient alteration of awareness (2) Cachexia SNOMED Code(s): 907220037 ICD Code: R64 - CACHEXIA Status: Chronic Priority: High Current Visit: Yes (3) Alcohol use disorder SNOMED Code(s): 61687436, 38596935 ICD Code: F10.99 - ALCOHOL USE, UNSP WITH UNSPECIFIED ALCOHOL-INDUCED DISORDER Status: Acute Priority: High Current Visit: Yes (4) Gait disturbance SNOMED Code(s): 04730741 ICD Code: R26.9 - UNSPECIFIED ABNORMALITIES OF GAIT AND MOBILITY Status: Chronic Priority: High Current Visit: Yes Problem List Initiated/Reviewed/Updated: Yes Orders Last 24hrs: Medication Orders Acetaminophen (Tylenol) 650 mg PO Q4H PRN PRN Reason: Pain (mild 1-3) Enoxaparin Sodium (Lovenox) 30 mg SUBCUT DAILY [facility] Folic Acid (Folic Acid) 1 mg PO DAILY [facility] Last Admin: 03/28/17 09:16 Dose: 1 mg Sodium Chloride (Normal Saline) 1,000 mls @ 125 mls/hr IV ASDIRECTED [facility] Last Admin: 03/27/17 20:15 Dose: 125 mls/hr Sodium Chloride (Normal Saline) 1,000 mls @ 100 mls/hr IV ASDIRECTED [facility] Insulin Aspart (Novolog) 0 unit SUBCUT ACBED [facility] PRN Reason: Protocol Last Admin: 03/28/17 06:46 Dose: Not Given Admin: 03/28/17 00:56 Dose: 1 unit Levothyroxine Sodium (Levothyroxine) 25 mcg PO ACBREAKFAST [facility] Last Admin: 03/28/17 06:35 Dose: 25 mcg Lisinopril (Prinivil) 10 mg PO DAILY [facility] Last Admin: 03/28/17 09:16 Dose: 10 mg Lorazepam (Ativan) 1 - 3 mg IVPUSH Q4H PRN; Protocol PRN Reason: Alcohol Withdrawal Morphine Sulfate (Morphine) 2 mg IVPUSH Q2H PRN PRN Reason: Pain (severe 7-10) Morphine Sulfate (Morphine) 2 mg IVPUSH Q2H PRN PRN Reason: Pain (severe 7-10) Stop: 03/29/17 10:37 Oxycodone HCl (Oxycodone) 5 mg PO Q4H PRN PRN Reason: Pain (moderate 4-6) Oxycodone HCl (Oxycodone) 5 mg PO Q4H PRN PRN Reason: Pain (moderate 4-6) Thiamine HCl (Vitamin B-1) 100 mg PO DAILY [facility] Last Admin: 03/28/17 09:16 Dose: 100 mg Assessment/Plan Comment:: The patient is a 71-year-old gentleman who is been made it as an inpatient on telemetry secondary to his altered mental status. The patient is clearly confused today and he is only oriented to person. The patient is not very attentive. I've ordered a banana bag initially and of elected to place the patient on thiamine 100 mg by mouth daily, folate 1 mg by mouth daily and IV fluids for fluid resuscitation at the rate of 100 mL per hour. The patient will also be placed on CWIAA Ativan protocol for possible alcohol withdrawal. Because of the patient's disorientation and likely inability to care for himself as evidenced by his cachexia I've ordered that the patient have an MRI to ascertain any acute parenchymal changes. I don't think this is likely surgical sales representative of Korsakoff syndrome secondary to his alcohol consumption. The patient may need to have long-term care placement depending upon fluid resuscitation and medication. He also be monitored very closely with regards to his CBC counts and his metabolic labs. The patient's overall treatment plan will be adjusted as conditions and information indicates.
[2017-03-28] MEDS: Enoxaparin 40 MG/0.4 ML Syringe SUBCUT SCH (11:01)
[2017-03-28] MEDS: Sodium Chloride 0.9% 1,000 ML IV SCH ×2 (11:03→22:06)
[2017-03-29] MEDS: Acetaminophen 325 MG Tab PO PRN ×3 (01:06→20:31)
[2017-03-29 05:05] LABS: CHLORIDE,CL 106 mmol/L (98-110); SODIUM,NA 135 mmol/L (136-146)
[2017-03-29] MEDS: Levothyroxine 25 MCG Tab PO SCH (06:34)
[2017-03-29] MEDS: Insulin Aspart 100 Units/ML 3 ML Pen SUBCUT SCH ×4 (06:39→20:31)
[2017-03-29] MEDS: Sodium Chloride 0.9% 1,000 ML IV SCH ×2 (08:23→23:37)
[2017-03-29] MEDS: Enoxaparin 40 MG/0.4 ML Syringe SUBCUT SCH (08:27)
[2017-03-29] MEDS: Lisinopril 10 MG Tab PO SCH (08:27)
[2017-03-29] MEDS: Folic Acid 1 MG Tab PO SCH (08:27)
[2017-03-29] MEDS: Thiamine 100 MG Tab PO SCH (08:27)
[2017-03-29] MEDS ORDERED: Iopamidol 755 MG/ML 500 ML Multipack Bottle IVPUSH STA (12:07)
--- NOTE | 2017-03-29 12:38 | CT ---
EXAMINATION: CT head with contrast. Technique: Axial CT images obtained through the head following the administration of 50 mL of Isovue- 370 in the right arm. Coronal and sagittal reconstructions obtained. Comparison is made to noncontras t head CT from the day prior. HISTORY: Headache FINDINGS: No evidence of intra or extra axial hemorrhage, mass, midline shift, hydrocephalus or edema. There i s moderate generalized atrophy. Periventricular and subcortical white matter lucencies are noted. The re is no abnormal enhancement. No hypoattenuation changes in the major vascular territories to suggest acute infarct. No abnormal i ntracranial calcifications are detected. Mild vascular calcifications are noted. Mild mucosal thicken ing noted within the ethmoid air cells. Pituitary fossa appears unremarkable. Calvarium is intact. No evidence of skull fracture. IMPRESSION: 1. Moderate generalized atrophy and small vessel ischemic changes. 2. No acute intracranial abnormality or area of enhancement.
--- NOTE | 2017-03-29 17:56 | PCM.PN ---
- General Info Date of Service: 03/29/17 Admission Dx/Problem (Free Text): Admission Diagnosis/Problem Admission Diagnosis/Problem Dementia without behavioral disturbance Subjective Update: Patient has not had much improvement over his previous mental alteration. Functional Status: Reports: Pain Controlled, Tolerating Diet - Review of Systems Systems Review Comment:: Not reliable. - Patient Data Vitals - Most Recent: Last Vital Signs Temp 36.3 C 03/29/17 16:00 Pulse 59 L 03/29/17 16:00 Resp 20 03/29/17 16:00 BP 150/75 H 03/29/17 16:00 Pulse Ox 97 03/29/17 16:00 Weight - Most Recent: 69.5 kg I&O - Last 24 Hours: Intake & Output 03/29/17 03/29/17 03/29/17 06:59 14:59 22:59 Intake Total 1712 400 Output Total 900 1700 Balance 812 -1300 Lab Results Last 24 Hours: Laboratory Results - last 24 hr 03/28/17 03/28/17 03/29/17 Range/Units 16:05 20:29 04:16 WBC 5.53 (4.0-11.0) K/uL RBC 4.90 (4.50-5.90) M/uL Hgb 13.8 (13.0-17.0) g/dL Hct 41.2 (38.0-50.0) % MCV 84.1 (80.0-98.0) fL MCH 28.2 (27.0-32.0) pg MCHC 33.5 (31.0-37.0) g/dL RDW Std Deviation 42.6 (28.0-62.0) fl RDW Coeff of Rayshawn 14 (11.0-15.0) % Plt Count 214 (150-400) K/uL MPV 9.50 (7.40-12.00) fL Neut % (Auto) 53.5 (48.0-80.0) % Lymph % (Auto) 33.8 (16.0-40.0) % [place] % (Auto) 8.9 (0.0-15.0) % Eos % (Auto) 3.1 (0.0-7.0) % Baso % (Auto) 0.7 (0.0-1.5) % Neut # (Auto) 3.0 (1.4-5.7) K/uL Lymph # (Auto) 1.9 (0.6-2.4) K/uL [place] # (Auto) 0.5 (0.0-0.8) K/uL Eos # (Auto) 0.2 (0.0-0.7) K/uL Baso # (Auto) 0.0 (0.0-0.1) K/uL Nucleated RBC % 0.0 /100WBC Nucleated RBCs # 0 K/uL INR (0.86-1.11) Sodium (136-146) mmol/L Potassium (3.5-5.1) mmol/L Chloride (98-110) mmol/L Carbon Dioxide (21-31) mmol/L BUN (6.0-23.0) mg/dL Creatinine (0.6-1.5) mg/dL Est Cr Clr Drug Dosing mL/min Estimated GFR (MDRD) ml/min Glucose (60-110) mg/dL POC Glucose 127 H 98 (60-110) mg/dL Calcium (8.8-10.8) mg/dL Phosphorus (2.4-4.7) mg/dL Magnesium (1.5-2.3) mEq/L Total Bilirubin (0.1-1.5) mg/dL AST (5-40) IU/L ALT (8-54) IU/L Alkaline Phosphatase (40-150) Total Protein (6.0-8.0) g/dL Albumin (3.4-4.8) g/dL Globulin (2.0-3.5) g/dL Albumin/Globulin Ratio (1.3-2.8) 03/29/17 03/29/17 03/29/17 Range/Units 04:16 04:16 06:23 WBC (4.0-11.0) K/uL RBC (4.50-5.90) M/uL Hgb (13.0-17.0) g/dL Hct (38.0-50.0) % MCV (80.0-98.0) fL MCH (27.0-32.0) pg MCHC (31.0-37.0) g/dL RDW Std Deviation (28.0-62.0) fl RDW Coeff of Rayshawn (11.0-15.0) % Plt Count (150-400) K/uL MPV (7.40-12.00) fL Neut % (Auto) (48.0-80.0) % Lymph % (Auto) (16.0-40.0) % [place] % (Auto) (0.0-15.0) % Eos % (Auto) (0.0-7.0) % Baso % (Auto) (0.0-1.5) % Neut # (Auto) (1.4-5.7) K/uL Lymph # (Auto) (0.6-2.4) K/uL [place] # (Auto) (0.0-0.8) K/uL Eos # (Auto) (0.0-0.7) K/uL Baso # (Auto) (0.0-0.1) K/uL Nucleated RBC % /100WBC Nucleated RBCs # K/uL INR 0.98 (0.86-1.11) Sodium 135 L (136-146) mmol/L Potassium 4.5 (3.5-5.1) mmol/L Chloride 106 (98-110) mmol/L Carbon Dioxide 23 (21-31) mmol/L BUN 13 (6.0-23.0) mg/dL Creatinine 0.8 (0.6-1.5) mg/dL Est Cr Clr Drug Dosing 84.46 mL/min Estimated GFR (MDRD) > 60.0 ml/min Glucose 105 (60-110) mg/dL POC Glucose 93 (60-110) mg/dL Calcium 9.0 (8.8-10.8) mg/dL Phosphorus 2.2 L (2.4-4.7) mg/dL Magnesium 1.6 (1.5-2.3) mEq/L Total Bilirubin 0.5 (0.1-1.5) mg/dL AST 14 (5-40) IU/L ALT 16 (8-54) IU/L Alkaline Phosphatase 68 (40-150) Total Protein 6.1 (6.0-8.0) g/dL Albumin 3.6 (3.4-4.8) g/dL Globulin 2.5 (2.0-3.5) g/dL Albumin/Globulin Ratio 1.4 (1.3-2.8) 03/29/17 Range/Units 11:20 WBC (4.0-11.0) K/uL RBC (4.50-5.90) M/uL Hgb (13.0-17.0) g/dL Hct (38.0-50.0) % MCV (80.0-98.0) fL MCH (27.0-32.0) pg MCHC (31.0-37.0) g/dL RDW Std Deviation (28.0-62.0) fl RDW Coeff of Rayshawn (11.0-15.0) % Plt Count (150-400) K/uL MPV (7.40-12.00) fL Neut % (Auto) (48.0-80.0) % Lymph % (Auto) (16.0-40.0) % [place] % (Auto) (0.0-15.0) % Eos % (Auto) (0.0-7.0) % Baso % (Auto) (0.0-1.5) % Neut # (Auto) (1.4-5.7) K/uL Lymph # (Auto) (0.6-2.4) K/uL [place] # (Auto) (0.0-0.8) K/uL Eos # (Auto) (0.0-0.7) K/uL Baso # (Auto) (0.0-0.1) K/uL Nucleated RBC % /100WBC Nucleated RBCs # K/uL INR (0.86-1.11) Sodium (136-146) mmol/L Potassium (3.5-5.1) mmol/L Chloride (98-110) mmol/L Carbon Dioxide (21-31) mmol/L BUN (6.0-23.0) mg/dL Creatinine (0.6-1.5) mg/dL Est Cr Clr Drug Dosing mL/min Estimated GFR (MDRD) ml/min Glucose (60-110) mg/dL POC Glucose 107 (60-110) mg/dL Calcium (8.8-10.8) mg/dL Phosphorus (2.4-4.7) mg/dL Magnesium (1.5-2.3) mEq/L Total Bilirubin (0.1-1.5) mg/dL AST (5-40) IU/L ALT (8-54) IU/L Alkaline Phosphatase (40-150) Total Protein (6.0-8.0) g/dL Albumin (3.4-4.8) g/dL Globulin (2.0-3.5) g/dL Albumin/Globulin Ratio (1.3-2.8) Med Orders - Current: Current Medications Acetaminophen (Tylenol) 650 mg PO Q4H PRN PRN Reason: Pain (mild 1-3) Last Admin: 03/29/17 11:09 Dose: 650 mg Enoxaparin Sodium (Lovenox) 40 mg SUBCUT DAILY [facility] Last Admin: 03/29/17 08:27 Dose: 40 mg Folic Acid (Folic Acid) 1 mg PO DAILY [facility] Last Admin: 03/29/17 08:27 Dose: 1 mg Sodium Chloride (Normal Saline) 1,000 mls @ 100 mls/hr IV ASDIRECTED [facility] Last Admin: 03/29/17 08:23 Dose: 100 mls/hr Insulin Aspart (Novolog) 0 unit SUBCUT ACBED [facility] PRN Reason: Protocol Last Admin: 03/29/17 17:12 Dose: Not Given Levothyroxine Sodium (Levothyroxine) 25 mcg PO ACBREAKFAST [facility] Last Admin: 03/29/17 06:34 Dose: 25 mcg Lisinopril (Prinivil) 10 mg PO DAILY [facility] Last Admin: 03/29/17 08:27 Dose: 10 mg Lorazepam (Ativan) 1 - 3 mg IVPUSH Q4H PRN; Protocol PRN Reason: Alcohol Withdrawal Morphine Sulfate (Morphine) 2 mg IVPUSH Q2H PRN PRN Reason: Pain (severe 7-10) Oxycodone HCl (Oxycodone) 5 mg PO Q4H PRN PRN Reason: Pain (moderate 4-6) Thiamine HCl (Vitamin B-1) 100 mg PO DAILY [facility] Last Admin: 03/29/17 08:27 Dose: 100 mg Discontinued Medications Sodium Chloride (Normal Saline) 1,000 mls @ 125 mls/hr IV ASDIRECTED [facility] Last Admin: 03/27/17 20:15 Dose: 125 mls/hr Thiamine HCl 100 mg/ Sodium (Chloride) 101 mls @ 202 mls/hr IV ONETIME ONE Stop: 03/27/17 19:45 Last Admin: 03/27/17 20:17 Dose: 202 mls/hr Thiamine HCl 100 mg/ Sodium (Chloride) 101 mls @ 202 mls/hr IV ONETIME ONE Stop: 03/27/17 20:44 Last Admin: 03/27/17 20:24 Dose: Not Given Multivitamins/Minerals 10 ml/ (Sodium Chloride) 1,010 mls @ 100 mls/hr IV ONETIME ONE Stop: 03/28/17 09:50 Last Admin: 03/28/17 00:59 Dose: 100 mls/hr Iopamidol (Isovue Multipack-370 (76%)) 50 ml IVPUSH ONETIME [facility] Stop: 03/29/17 12:08 Last Admin: 03/29/17 12:07 Dose: 50 ml - Exam Quality Assessment: No: Supplemental Oxygen General: Alert, Cooperative, Other (Cachectic). No: Oriented HEENT: Pupils Equal, Pupils Reactive Neck: Supple, Trachea Midline Lungs: Clear to Auscultation, Normal Respiratory Effort Cardiovascular: Regular Rate, Regular Rhythm GI/Abdominal Exam: Normal Bowel Sounds, No Distention Extremities: No Pedal Edema Skin: Warm, Dry Psy/Mental Status: Alert - Problem List & Annotations (1) Altered mental status SNOMED Code(s): 939480170 Code(s): R41.82 - ALTERED MENTAL STATUS, UNSPECIFIED Status: Acute Priority: High Current Visit: Yes Qualifiers: Altered mental status type: transient alteration of awareness Qualified Code(s): R40.4 - Transient alteration of awareness (2) Cachexia SNOMED Code(s): 807464279 Code(s): R64 - CACHEXIA Status: Chronic Priority: High Current Visit: Yes (3) Alcohol use disorder SNOMED Code(s): 01320729, 82161754 Code(s): F10.99 - ALCOHOL USE, UNSP WITH UNSPECIFIED ALCOHOL-INDUCED DISORDER Status: Acute Priority: High Current Visit: Yes (4) Gait disturbance SNOMED Code(s): 94683299 Code(s): R26.9 - UNSPECIFIED ABNORMALITIES OF GAIT AND MOBILITY Status: Chronic Priority: High Current Visit: Yes - Problem List Review Problem List Initiated/Reviewed/Updated: Yes - Plan Plan:: The patient is a 71-year-old gentleman who still has altered mental status. He is somewhat more alert however he thinks it's 1976. The patient had a CT scan of his head with contrast as he is not able to have a MRI secondary to his pacemaker. The patient has been continued on thiamine and folate out of concern for possible alcohol related encephalopathy. The patient is disoriented and he has somewhat difficult time in ambulation. He has been evaluated by physical therapy. 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 He has not thus far demonstrated in the effort for self-care and he remains disheveled and appears to have somewhat of a self-care deficit. The patient will be maintained on fluids, diet as tolerated, thiamine and folate as previously ordered. The patient may need further evaluation for consideration as possible placement. CT scan does not show any evidence of acute intracranial pathology however there is significant volume loss associated with dementia. The patient also had been complaining of right-sided headache and there is no specific intracranial pathology to explain this. The patient will be monitored closely and his overall treatment plan will be adjusted accordingly.
[2017-03-30] MEDS: Insulin Aspart 100 Units/ML 3 ML Pen SUBCUT SCH ×4 (06:35→23:50)
[2017-03-30] MEDS: Levothyroxine 25 MCG Tab PO SCH (06:35)
[2017-03-30] MEDS: Sodium Chloride 0.9% 1,000 ML IV SCH ×2 (08:50→18:07)
[2017-03-30] MEDS: Folic Acid 1 MG Tab PO SCH (09:13)
[2017-03-30] MEDS: Lisinopril 10 MG Tab PO SCH (09:13)
[2017-03-30] MEDS: Thiamine 100 MG Tab PO SCH (09:13)
[2017-03-30] MEDS: Enoxaparin 40 MG/0.4 ML Syringe SUBCUT SCH (09:14)
[2017-03-30] MEDS: Acetaminophen 325 MG Tab PO PRN ×2 (09:27→23:51)
--- NOTE | 2017-03-30 16:02 | PCM.PN ---
- General Info Date of Service: 03/30/17 - Review of Systems Systems Review Comment:: His daughter, who is present, states that he has been much more confused with decreased ability to walk over the past month. He has been through alcohol withdrawl in the past. He is vague about his alcohol intake. No abdominal pain. - Patient Data Vitals - Most Recent: Last Vital Signs Temp 98.4 F 03/30/17 11:17 Pulse 93 03/30/17 04:00 Resp 16 03/30/17 11:17 BP 148/86 H 03/30/17 11:17 Pulse Ox 99 03/30/17 11:17 Weight - Most Recent: 69.5 kg I&O - Last 24 Hours: Intake & Output 03/30/17 03/30/17 03/30/17 06:59 14:59 22:59 Intake Total 2110 950 Output Total 790 Balance 1320 950 Lab Results Last 24 Hours: Laboratory Results - last 24 hr 03/29/17 03/29/17 03/30/17 Range/Units 16:40 20:30 06:31 POC Glucose 85 87 133 H (60-110) mg/dL 03/30/17 Range/Units 11:15 POC Glucose 99 (60-110) mg/dL Med Orders - Current: Current Medications Acetaminophen (Tylenol) 650 mg PO Q4H PRN PRN Reason: Pain (mild 1-3) Last Admin: 03/30/17 09:27 Dose: 650 mg Enoxaparin Sodium (Lovenox) 40 mg SUBCUT DAILY [facility] Last Admin: 03/30/17 09:14 Dose: 40 mg Folic Acid (Folic Acid) 1 mg PO DAILY [facility] Last Admin: 03/30/17 09:13 Dose: 1 mg Sodium Chloride (Normal Saline) 1,000 mls @ 100 mls/hr IV ASDIRECTED [facility] Last Admin: 03/30/17 08:50 Dose: 100 mls/hr Insulin Aspart (Novolog) 0 unit SUBCUT ACBED [facility] PRN Reason: Protocol Last Admin: 03/30/17 11:16 Dose: Not Given Levothyroxine Sodium (Levothyroxine) 25 mcg PO ACBREAKFAST [facility] Last Admin: 03/30/17 06:35 Dose: 25 mcg Lisinopril (Prinivil) 10 mg PO DAILY [facility] Last Admin: 03/30/17 09:13 Dose: 10 mg Lorazepam (Ativan) 1 - 3 mg IVPUSH Q4H PRN; Protocol PRN Reason: Alcohol Withdrawal Morphine Sulfate (Morphine) 2 mg IVPUSH Q2H PRN PRN Reason: Pain (severe 7-10) Oxycodone HCl (Oxycodone) 5 mg PO Q4H PRN PRN Reason: Pain (moderate 4-6) Thiamine HCl (Vitamin B-1) 100 mg PO DAILY [facility] Last Admin: 03/30/17 09:13 Dose: 100 mg Discontinued Medications Sodium Chloride (Normal Saline) 1,000 mls @ 125 mls/hr IV ASDIRECTED [facility] Last Admin: 03/27/17 20:15 Dose: 125 mls/hr Thiamine HCl 100 mg/ Sodium (Chloride) 101 mls @ 202 mls/hr IV ONETIME ONE Stop: 03/27/17 19:45 Last Admin: 03/27/17 20:17 Dose: 202 mls/hr Thiamine HCl 100 mg/ Sodium (Chloride) 101 mls @ 202 mls/hr IV ONETIME ONE Stop: 03/27/17 20:44 Last Admin: 03/27/17 20:24 Dose: Not Given Multivitamins/Minerals 10 ml/ (Sodium Chloride) 1,010 mls @ 100 mls/hr IV ONETIME ONE Stop: 03/28/17 09:50 Last Admin: 03/28/17 00:59 Dose: 100 mls/hr Iopamidol (Isovue Multipack-370 (76%)) 50 ml IVPUSH ONETIME STA Stop: 03/29/17 12:08 Last Admin: 03/29/17 12:07 Dose: 50 ml Comments:: alert he is able to stand with one assist but is very unsteady on his feet lungs cTA heart RRR no ankle edema clubbing fingernails speech slow able to answer brief questions - Problem List & Annotations (1) Alcohol use disorder SNOMED Code(s): 17652402, 31399408 Code(s): F10.99 - ALCOHOL USE, UNSP WITH UNSPECIFIED ALCOHOL-INDUCED DISORDER Status: Acute Priority: High Current Visit: Yes (2) Altered mental status SNOMED Code(s): 036193384 Code(s): R41.82 - ALTERED MENTAL STATUS, UNSPECIFIED Status: Acute Priority: High Current Visit: Yes Qualifiers: Altered mental status type: transient alteration of awareness Qualified Code(s): R40.4 - Transient alteration of awareness (3) Weakness SNOMED Code(s): 51039671 Code(s): R53.1 - WEAKNESS Status: Acute Current Visit: Yes (4) Gait disturbance SNOMED Code(s): 71538255 Code(s): R26.9 - UNSPECIFIED ABNORMALITIES OF GAIT AND MOBILITY Status: Chronic Priority: High Current Visit: Yes (5) Elevated blood pressure reading SNOMED Code(s): 95820291 Code(s): R03.0 - ELEVATED BLOOD-PRESSURE READING, W/O DIAGNOSIS OF HTN Status: Acute Current Visit: No - Problem List Review Problem List Initiated/Reviewed/Updated: Yes - My Orders Last 24 Hours: My Active Orders 03/31/17 05:11 BASIC METABOLIC PANEL,BMP [CHEM] AM CBC WITH AUTO DIFF [HEME] AM LIPID PANEL [CHEM] AM MAGNESIUM [CHEM] AM 03/31/17 08:00 Carotid Ltd Rt [US] Routine 04/01/17 08:00 Echo 2D wo Cont [US] Routine 04/02/17 08:00 Carotid Ltd Lt [US] Routine - Plan Plan:: The patient is a 71-year-old gentleman who still has altered mental status. He is somewhat more alert however he thinks it's 1977. The patient had a CT scan of his head with contrast as he is not able to have a MRI secondary to his pacemaker. The patient has been continued on thiamine and folate out of concern for possible alcohol related encephalopathy. The patient is disoriented and he has somewhat difficult time in ambulation. He has been evaluated by physical therapy. 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 He has not thus far demonstrated in the effort for self-care and he remains disheveled and appears to have somewhat of a self-care deficit. The patient will be maintained on fluids, diet as tolerated, thiamine and folate as previously ordered. The patient may need further evaluation for consideration as possible placement. CT scan does not show any evidence of acute intracranial pathology however there is significant volume loss associated with dementia. The patient also had been complaining of right-sided headache and there is no specific intracranial pathology to explain this. The patient will be monitored closely and his overall treatment plan will be adjusted accordingly. 03/30/2017 I discussed case with his daughter at bedside. I advised that he likely has a multifactorial dementia with causative factors including: vascular dementia, alcohol related dementia, chronic degenerative dementia. carotid US, echo, repeat head CT probably Sunday. Monitor lab in am. I advised that he may need placement at [facility]. PT / OT consult. Rohan Bonilla MD
[2017-03-30] MEDS: Nicotine 21 MG/24 Hr Patch TRDERM SCH (17:25)
--- NOTE | 2017-03-30 18:06 | PCM.PRNOTE ---
- Free Text/Narrative Note: Device Programming Last session 03/02/2017 Company [facility] Model VIDAO [id number] Mode DDD LRL 60 bpm % paced A paced 29%, V paced 2% intrinsic rhythm sinus bradycardia not pacer dependent Battery life 8.5 years Atrial lead sensin.7 mV capture threshold: 0.8 mV @ 0.4 ms impedance: 597 Ohms Ventricular lead sensin.3 mV capture threshold: 0.1 mV @ 0.4 ms impedance: 689 Ohms episode: none MS: none Imp normally functioning pacemaker plan per hospitalist team
[2017-03-31] MEDS: Sodium Chloride 0.9% 1,000 ML IV SCH ×2 (04:20→15:55)
[2017-03-31 06:14] LABS: CHLORIDE,CL 106 mmol/L (98-110); SODIUM,NA 134 mmol/L (136-146)
[2017-03-31] MEDS: Levothyroxine 25 MCG Tab PO SCH (07:19)
[2017-03-31] MEDS: Insulin Aspart 100 Units/ML 3 ML Pen SUBCUT SCH ×4 (08:05→20:15)
[2017-03-31] MEDS: Enoxaparin 40 MG/0.4 ML Syringe SUBCUT SCH (09:03)
[2017-03-31] MEDS: Folic Acid 1 MG Tab PO SCH ×2 (09:03→20:23)
[2017-03-31] MEDS: Nicotine 21 MG/24 Hr Patch TRDERM SCH (09:03)
[2017-03-31] MEDS: Thiamine 100 MG Tab PO SCH (09:03)
[2017-03-31] MEDS: Lisinopril 10 MG Tab PO SCH (09:04)
[2017-03-31] MEDS: LORazepam 2 MG/ML MDV IVPUSH PRN (14:35)
--- NOTE | 2017-03-31 16:43 | PCM.PN ---
- General Info Date of Service: 03/31/17 Subjective Update: HE has no new complaints - Patient Data Vitals - Most Recent: Last Vital Signs Temp 97.2 F 03/31/17 16:00 Pulse 65 03/31/17 16:00 Resp 22 H 03/31/17 16:00 BP 175/97 H 03/31/17 16:00 Pulse Ox 97 03/31/17 16:00 Weight - Most Recent: 69.5 kg I&O - Last 24 Hours: Intake & Output 03/31/17 03/31/17 03/31/17 06:59 14:59 22:59 Intake Total 1620 1600 Output Total 550 1125 Balance 1070 475 Lab Results Last 24 Hours: Laboratory Results - last 24 hr 03/30/17 03/30/17 03/31/17 Range/Units 16:37 21:59 05:27 WBC 4.77 (4.0-11.0) K/uL RBC 4.86 (4.50-5.90) M/uL Hgb 13.9 (13.0-17.0) g/dL Hct 40.8 (38.0-50.0) % MCV 84.0 (80.0-98.0) fL MCH 28.6 (27.0-32.0) pg MCHC 34.1 (31.0-37.0) g/dL RDW Std Deviation 42.6 (28.0-62.0) fl RDW Coeff of Rayshawn 14 (11.0-15.0) % Plt Count 190 (150-400) K/uL MPV 9.00 (7.40-12.00) fL Neut % (Auto) 52.6 (48.0-80.0) % Lymph % (Auto) 34.2 (16.0-40.0) % [place] % (Auto) 8.8 (0.0-15.0) % Eos % (Auto) 3.6 (0.0-7.0) % Baso % (Auto) 0.8 (0.0-1.5) % Neut # (Auto) 2.5 (1.4-5.7) K/uL Lymph # (Auto) 1.6 (0.6-2.4) K/uL [place] # (Auto) 0.4 (0.0-0.8) K/uL Eos # (Auto) 0.2 (0.0-0.7) K/uL Baso # (Auto) 0.0 (0.0-0.1) K/uL Nucleated RBC % 0.0 /100WBC Nucleated RBCs # 0 K/uL Sodium (136-146) mmol/L Potassium (3.5-5.1) mmol/L Chloride (98-110) mmol/L Carbon Dioxide (21-31) mmol/L BUN (6.0-23.0) mg/dL Creatinine (0.6-1.5) mg/dL Est Cr Clr Drug Dosing mL/min Estimated GFR (MDRD) ml/min Glucose (60-110) mg/dL POC Glucose 75 99 (60-110) mg/dL Calcium (8.8-10.8) mg/dL Magnesium (1.5-2.3) mEq/L Triglycerides (10-190) mg/dL Cholesterol (131-240) mg/dL LDL Cholesterol, Calc (60-180) mg/dL VLDL Cholesterol (5-55) mg/dL HDL Cholesterol (40-80) mg/dL Cholesterol/HDL Ratio (3.3-6.0) 03/31/17 03/31/17 03/31/17 Range/Units 05:27 06:22 12:30 WBC (4.0-11.0) K/uL RBC (4.50-5.90) M/uL Hgb (13.0-17.0) g/dL Hct (38.0-50.0) % MCV (80.0-98.0) fL MCH (27.0-32.0) pg MCHC (31.0-37.0) g/dL RDW Std Deviation (28.0-62.0) fl RDW Coeff of Rayshawn (11.0-15.0) % Plt Count (150-400) K/uL MPV (7.40-12.00) fL Neut % (Auto) (48.0-80.0) % Lymph % (Auto) (16.0-40.0) % [place] % (Auto) (0.0-15.0) % Eos % (Auto) (0.0-7.0) % Baso % (Auto) (0.0-1.5) % Neut # (Auto) (1.4-5.7) K/uL Lymph # (Auto) (0.6-2.4) K/uL [place] # (Auto) (0.0-0.8) K/uL Eos # (Auto) (0.0-0.7) K/uL Baso # (Auto) (0.0-0.1) K/uL Nucleated RBC % /100WBC Nucleated RBCs # K/uL Sodium 134 L (136-146) mmol/L Potassium 4.4 (3.5-5.1) mmol/L Chloride 106 (98-110) mmol/L Carbon Dioxide 24 (21-31) mmol/L BUN 10 (6.0-23.0) mg/dL Creatinine 0.8 (0.6-1.5) mg/dL Est Cr Clr Drug Dosing 84.46 mL/min Estimated GFR (MDRD) > 60.0 ml/min Glucose 99 (60-110) mg/dL POC Glucose 107 90 (60-110) mg/dL Calcium 9.2 (8.8-10.8) mg/dL Magnesium 1.7 (1.5-2.3) mEq/L Triglycerides 195 H (10-190) mg/dL Cholesterol 204 (131-240) mg/dL LDL Cholesterol, Calc 127 (60-180) mg/dL VLDL Cholesterol 39 (5-55) mg/dL HDL Cholesterol 38 L (40-80) mg/dL Cholesterol/HDL Ratio 5.4 (3.3-6.0) Med Orders - Current: Current Medications Acetaminophen (Tylenol) 650 mg PO Q4H PRN PRN Reason: Pain (mild 1-3) Last Admin: 03/30/17 23:51 Dose: 650 mg Enoxaparin Sodium (Lovenox) 40 mg SUBCUT DAILY [facility] Last Admin: 03/31/17 09:03 Dose: 40 mg Folic Acid (Folic Acid) 1 mg PO DAILY [facility] Last Admin: 03/31/17 09:03 Dose: 1 mg Folic Acid (Folic Acid) 1 mg PO BEDTIME [facility] Sodium Chloride (Normal Saline) 1,000 mls @ 100 mls/hr IV ASDIRECTED [facility] Last Admin: 03/31/17 15:55 Dose: 100 mls/hr Insulin Aspart (Novolog) 0 unit SUBCUT ACBED [facility] PRN Reason: Protocol Last Admin: 03/31/17 13:05 Dose: Not Given Levothyroxine Sodium (Levothyroxine) 25 mcg PO ACBREAKFAST [facility] Last Admin: 03/31/17 07:19 Dose: 25 mcg Lisinopril (Prinivil) 10 mg PO DAILY [facility] Last Admin: 03/31/17 09:04 Dose: 10 mg Lorazepam (Ativan) 1 - 3 mg IVPUSH Q4H PRN; Protocol PRN Reason: Alcohol Withdrawal Last Admin: 03/31/17 14:35 Dose: 1 mg Morphine Sulfate (Morphine) 2 mg IVPUSH Q2H PRN PRN Reason: Pain (severe 7-10) Nicotine (Habitrol) 21 mg TRDERM DAILY [facility] Last Admin: 03/31/17 09:03 Dose: 21 mg Oxycodone HCl (Oxycodone) 5 mg PO Q4H PRN PRN Reason: Pain (moderate 4-6) Thiamine HCl (Vitamin B-1) 100 mg PO DAILY [facility] Last Admin: 03/31/17 09:03 Dose: 100 mg Thiamine HCl (Vitamin B-1) 100 mg PO BEDTIME [facility] Discontinued Medications Sodium Chloride (Normal Saline) 1,000 mls @ 125 mls/hr IV ASDIRECTED [facility] Last Admin: 03/27/17 20:15 Dose: 125 mls/hr Thiamine HCl 100 mg/ Sodium (Chloride) 101 mls @ 202 mls/hr IV ONETIME ONE Stop: 03/27/17 19:45 Last Admin: 03/27/17 20:17 Dose: 202 mls/hr Thiamine HCl 100 mg/ Sodium (Chloride) 101 mls @ 202 mls/hr IV ONETIME ONE Stop: 03/27/17 20:44 Last Admin: 03/27/17 20:24 Dose: Not Given Multivitamins/Minerals 10 ml/ (Sodium Chloride) 1,010 mls @ 100 mls/hr IV ONETIME ONE Stop: 03/28/17 09:50 Last Admin: 03/28/17 00:59 Dose: 100 mls/hr Iopamidol (Isovue Multipack-370 (76%)) 50 ml IVPUSH ONETIME STA Stop: 03/29/17 12:08 Last Admin: 03/29/17 12:07 Dose: 50 ml Comments:: nurses report that he cannot ambulate without assistance and that when he ambulates with assistance, he leans towards the right. lungs : faint intermittent rhonchi he is able to have simple conversation - Problem List & Annotations (1) Alcohol use disorder SNOMED Code(s): 38459647, 14265864 Code(s): F10.99 - ALCOHOL USE, UNSP WITH UNSPECIFIED ALCOHOL-INDUCED DISORDER Status: Acute Priority: High Current Visit: Yes (2) Altered mental status SNOMED Code(s): 642796017 Code(s): R41.82 - ALTERED MENTAL STATUS, UNSPECIFIED Status: Acute Priority: High Current Visit: Yes Qualifiers: Altered mental status type: transient alteration of awareness Qualified Code(s): R40.4 - Transient alteration of awareness (3) Weakness SNOMED Code(s): 30220523 Code(s): R53.1 - WEAKNESS Status: Acute Current Visit: Yes (4) Gait disturbance SNOMED Code(s): 16153111 Code(s): R26.9 - UNSPECIFIED ABNORMALITIES OF GAIT AND MOBILITY Status: Chronic Priority: High Current Visit: Yes (5) Elevated blood pressure reading SNOMED Code(s): 16579046 Code(s): R03.0 - ELEVATED BLOOD-PRESSURE READING, W/O DIAGNOSIS OF HTN Status: Acute Current Visit: No - Problem List Review Problem List Initiated/Reviewed/Updated: Yes - My Orders Last 24 Hours: My Active Orders 03/30/17 16:03 Consult to Occupational Therapy [OT Evaluation and Treatment] [CONS] Routine 03/30/17 16:45 Nicotine [Habitrol] 21 mg TRDERM DAILY 03/31/17 10:30 Carotid Comp [US] Routine Echo Comp wo Cont [US] Routine 03/31/17 21:00 Folic Acid 1 mg PO BEDTIME Thiamine [Vitamin B-1] 100 mg PO BEDTIME - Plan Plan:: The patient is a 71-year-old gentleman who still has altered mental status. He is somewhat more alert however he thinks it's 1975. The patient had a CT scan of his head with contrast as he is not able to have a MRI secondary to his pacemaker. The patient has been continued on thiamine and folate out of concern for possible alcohol related encephalopathy. The patient is disoriented and he has somewhat difficult time in ambulation. He has been evaluated by physical therapy. 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 He has not thus far demonstrated in the effort for self-care and he remains disheveled and appears to have somewhat of a self-care deficit. The patient will be maintained on fluids, diet as tolerated, thiamine and folate as previously ordered. The patient may need further evaluation for consideration as possible placement. CT scan does not show any evidence of acute intracranial pathology however there is significant volume loss associated with dementia. The patient also had been complaining of right-sided headache and there is no specific intracranial pathology to explain this. The patient will be monitored closely and his overall treatment plan will be adjusted accordingly. 03/30/2017 I discussed case with his daughter at bedside. I advised that he likely has a multifactorial dementia with causative factors including: vascular dementia, alcohol related dementia, chronic degenerative dementia. carotid US, echo, repeat head CT probably Sunday. Monitor lab in am. I advised that he may need placement at [place]. PT / OT consult. 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 he is being seen by PT consider [place] Sunday or Sunday. Rohan Bonilla MD
--- NOTE | 2017-03-31 16:47 | PCM.SN ---
- Free Text/Narrative Note: I attempted but was unable to make verbal contact by phone with his daughter Maria Esther today. ( [phone])
--- NOTE | 2017-03-31 17:02 | PCM.SN ---
- Free Text/Narrative Note: I discussed case with one of his daughters at the bedside.
--- NOTE | 2017-03-31 20:11 | PCM.SN ---
- Free Text/Narrative Note: lipitor started for slight elevation LDL and trigl
[2017-03-31] MEDS: atorvaSTATin 20 MG Tab PO SCH ×2 (20:19→20:24)
[2017-03-31] MEDS ORDERED: Thiamine 100 MG Tab PO SCH (21:00)
[2017-04-01] MEDS: Sodium Chloride 0.9% 1,000 ML IV SCH ×2 (02:27→12:40)
[2017-04-01] MEDS: Levothyroxine 25 MCG Tab PO SCH (06:40)
[2017-04-01] MEDS: Insulin Aspart 100 Units/ML 3 ML Pen SUBCUT SCH ×4 (06:40→21:59)
[2017-04-01] MEDS: Thiamine 100 MG Tab PO SCH (10:10)
[2017-04-01] MEDS: Lisinopril 10 MG Tab PO SCH ×2 (10:10→21:49)
[2017-04-01] MEDS: Nicotine 21 MG/24 Hr Patch TRDERM SCH (10:13)
[2017-04-01] MEDS: Enoxaparin 40 MG/0.4 ML Syringe SUBCUT SCH (10:17)
[2017-04-01] MEDS: LORazepam 2 MG/ML MDV IVPUSH PRN (12:35)
--- NOTE | 2017-04-01 15:36 | PCM.PN ---
- General Info Date of Service: 04/01/17 Subjective Update: He cannot stand without assistance. He is a two person assist to ambulate. He has been confused - Patient Data Vitals - Most Recent: Last Vital Signs Temp 97.1 F 04/01/17 12:00 Pulse 63 04/01/17 12:00 Resp 14 04/01/17 12:00 BP 123/87 04/01/17 12:00 Pulse Ox 100 04/01/17 12:00 Weight - Most Recent: 69.5 kg I&O - Last 24 Hours: Intake & Output 04/01/17 04/01/17 04/01/17 06:59 14:59 22:59 Intake Total 1380 1000 Output Total 1000 Balance 380 1000 Lab Results Last 24 Hours: Laboratory Results - last 24 hr 03/31/17 03/31/17 04/01/17 Range/Units 15:56 20:03 06:37 POC Glucose 100 216 H 86 (60-110) mg/dL 04/01/17 Range/Units 12:07 POC Glucose 216 H (60-110) mg/dL Med Orders - Current: Current Medications Acetaminophen (Tylenol) 650 mg PO Q4H PRN PRN Reason: Pain (mild 1-3) Last Admin: 03/30/17 23:51 Dose: 650 mg Atorvastatin Calcium (Lipitor) 20 mg PO BEDTIME [facility] Last Admin: 03/31/17 20:24 Dose: Not Given Enoxaparin Sodium (Lovenox) 40 mg SUBCUT DAILY [facility] Last Admin: 04/01/17 10:17 Dose: 40 mg Folic Acid (Folic Acid) 1 mg PO BEDTIME [facility] Last Admin: 03/31/17 20:23 Dose: Not Given Sodium Chloride (Normal Saline) 1,000 mls @ 100 mls/hr IV ASDIRECTED [facility] Last Admin: 04/01/17 12:40 Dose: 100 mls/hr Insulin Aspart (Novolog) 0 unit SUBCUT ACBED [facility] PRN Reason: Protocol Last Admin: 04/01/17 12:42 Dose: 2 unit Levothyroxine Sodium (Levothyroxine) 25 mcg PO ACBREAKFAST [facility] Last Admin: 04/01/17 06:40 Dose: 25 mcg Lisinopril (Prinivil) 10 mg PO DAILY [facility] Last Admin: 04/01/17 10:10 Dose: 10 mg Lorazepam (Ativan) 1 - 3 mg IVPUSH Q4H PRN; Protocol PRN Reason: Alcohol Withdrawal Last Admin: 04/01/17 12:35 Dose: 1 mg Morphine Sulfate (Morphine) 2 mg IVPUSH Q2H PRN PRN Reason: Pain (severe 7-10) Nicotine (Habitrol) 21 mg TRDERM DAILY [facility] Last Admin: 04/01/17 10:13 Dose: 21 mg Oxycodone HCl (Oxycodone) 5 mg PO Q4H PRN PRN Reason: Pain (moderate 4-6) Thiamine HCl (Vitamin B-1) 100 mg PO DAILY [facility] Last Admin: 04/01/17 10:10 Dose: 100 mg Discontinued Medications Folic Acid (Folic Acid) 1 mg PO DAILY [facility] Last Admin: 03/31/17 09:03 Dose: 1 mg Sodium Chloride (Normal Saline) 1,000 mls @ 125 mls/hr IV ASDIRECTED [facility] Last Admin: 03/27/17 20:15 Dose: 125 mls/hr Thiamine HCl 100 mg/ Sodium (Chloride) 101 mls @ 202 mls/hr IV ONETIME ONE Stop: 03/27/17 19:45 Last Admin: 03/27/17 20:17 Dose: 202 mls/hr Thiamine HCl 100 mg/ Sodium (Chloride) 101 mls @ 202 mls/hr IV ONETIME ONE Stop: 03/27/17 20:44 Last Admin: 03/27/17 20:24 Dose: Not Given Multivitamins/Minerals 10 ml/ (Sodium Chloride) 1,010 mls @ 100 mls/hr IV ONETIME ONE Stop: 03/28/17 09:50 Last Admin: 03/28/17 00:59 Dose: 100 mls/hr Iopamidol (Isovue Multipack-370 (76%)) 50 ml IVPUSH ONETIME STA Stop: 03/29/17 12:08 Last Admin: 03/29/17 12:07 Dose: 50 ml Thiamine HCl (Vitamin B-1) 100 mg PO BEDTIME [facility] Last Admin: 03/31/17 20:00 Dose: 100 mg - Exam General: Alert, Cooperative Lungs: Clear to Auscultation, Normal Respiratory Effort Cardiovascular: Regular Rate, Regular Rhythm GI/Abdominal Exam: Soft, Non-Tender Physical Findings Comments:: he can tell me that he is in the hospital. When asked the year he replies, " ". - Problem List & Annotations (1) Alcohol use disorder SNOMED Code(s): 31895603, 02379695 Code(s): F10.99 - ALCOHOL USE, UNSP WITH UNSPECIFIED ALCOHOL-INDUCED DISORDER Status: Acute Priority: High Current Visit: Yes (2) Altered mental status SNOMED Code(s): 442747527 Code(s): R41.82 - ALTERED MENTAL STATUS, UNSPECIFIED Status: Acute Priority: High Current Visit: Yes Qualifiers: Altered mental status type: transient alteration of awareness Qualified Code(s): R40.4 - Transient alteration of awareness (3) Weakness SNOMED Code(s): 13806673 Code(s): R53.1 - WEAKNESS Status: Acute Current Visit: Yes (4) Gait disturbance SNOMED Code(s): 27985839 Code(s): R26.9 - UNSPECIFIED ABNORMALITIES OF GAIT AND MOBILITY Status: Chronic Priority: High Current Visit: Yes (5) Elevated blood pressure reading SNOMED Code(s): 81109151 Code(s): R03.0 - ELEVATED BLOOD-PRESSURE READING, W/O DIAGNOSIS OF HTN Status: Acute Current Visit: No - Problem List Review Problem List Initiated/Reviewed/Updated: Yes - My Orders Last 24 Hours: My Active Orders 03/31/17 20:15 atorvaSTATin [Lipitor] 20 mg PO BEDTIME 03/31/17 21:00 Folic Acid 1 mg PO BEDTIME - Plan Plan:: The patient is a 71-year-old gentleman who still has altered mental status. He is somewhat more alert however he thinks it's 1977. The patient had a CT scan of his head with contrast as he is not able to have a MRI secondary to his pacemaker. The patient has been continued on thiamine and folate out of concern for possible alcohol related encephalopathy. The patient is disoriented and he has somewhat difficult time in ambulation. He has been evaluated by physical therapy. 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 He has not thus far demonstrated in the effort for self-care and he remains disheveled and appears to have somewhat of a self-care deficit. The patient will be maintained on fluids, diet as tolerated, thiamine and folate as previously ordered. The patient may need further evaluation for consideration as possible placement. CT scan does not show any evidence of acute intracranial pathology however there is significant volume loss associated with dementia. The patient also had been complaining of right-sided headache and there is no specific intracranial pathology to explain this. The patient will be monitored closely and his overall treatment plan will be adjusted accordingly. 03/30/2017 I discussed case with his daughter at bedside. I advised that he likely has a multifactorial dementia with causative factors including: vascular dementia, alcohol related dementia, chronic degenerative dementia. carotid US, echo, repeat head CT probably Sunday. Monitor lab in am. I advised that he may need placement at [place]. PT / OT consult. 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 he is being seen by PT consider [place] Sunday or Sunday. Rohan Bonilla MD 04/01/2017 I do not believe that he is safe to discharge home. I have discussed [place] placement with his family in the past. Will readdress this tomorrow. Rohan Bonilla MD
[2017-04-01] MEDS: Multivitamin Tab PO SCH ×2 (16:12→21:48)
[2017-04-01] MEDS: atorvaSTATin 20 MG Tab PO SCH (21:49)
[2017-04-01] MEDS: Folic Acid 1 MG Tab PO SCH (21:49)
[2017-04-02] MEDS: LORazepam 2 MG/ML MDV IVPUSH PRN ×2 (00:01→21:24)
[2017-04-02] MEDS: Levothyroxine 25 MCG Tab PO SCH (06:41)
[2017-04-02] MEDS: Insulin Aspart 100 Units/ML 3 ML Pen SUBCUT SCH ×4 (06:42→21:24)
[2017-04-02] MEDS: Acetaminophen 325 MG Tab PO PRN (07:06)
[2017-04-02] MEDS: Nicotine 21 MG/24 Hr Patch TRDERM SCH (08:01)
[2017-04-02] MEDS: Thiamine 100 MG Tab PO SCH (08:02)
[2017-04-02] MEDS: Lisinopril 10 MG Tab PO SCH ×2 (08:02→20:23)
--- NOTE | 2017-04-02 13:54 | PCM.PN ---
- General Info Date of Service: 04/02/17 Subjective Update: still very confused - Patient Data Vitals - Most Recent: Last Vital Signs Temp 97.3 F 04/02/17 12:00 Pulse 60 04/02/17 12:00 Resp 22 H 04/02/17 12:00 BP 168/95 H 04/02/17 12:00 Pulse Ox 99 04/02/17 12:00 Weight - Most Recent: 69.5 kg I&O - Last 24 Hours: Intake & Output 04/01/17 04/02/17 04/02/17 22:59 06:59 14:59 Intake Total 1100 430 Output Total 1100 930 Balance 0 -500 Lab Results Last 24 Hours: Laboratory Results - last 24 hr 04/01/17 04/01/17 04/02/17 Range/Units 19:11 21:57 06:39 POC Glucose 198 H 156 H 119 H (60-110) mg/dL 04/02/17 Range/Units 11:38 POC Glucose 78 (60-110) mg/dL Med Orders - Current: Current Medications Acetaminophen (Tylenol) 650 mg PO Q4H PRN PRN Reason: Pain (mild 1-3) Last Admin: 04/02/17 07:06 Dose: 650 mg Atorvastatin Calcium (Lipitor) 20 mg PO BEDTIME [facility] Last Admin: 04/01/17 21:49 Dose: 20 mg Folic Acid (Folic Acid) 1 mg PO BEDTIME [facility] Last Admin: 04/01/17 21:49 Dose: 1 mg Insulin Aspart (Novolog) 0 unit SUBCUT ACBED [facility] PRN Reason: Protocol Last Admin: 04/02/17 11:40 Dose: Not Given Levothyroxine Sodium (Levothyroxine) 25 mcg PO ACBREAKFAST [facility] Last Admin: 04/02/17 06:41 Dose: 25 mcg Lisinopril (Prinivil) 10 mg PO BID [facility] Last Admin: 04/02/17 08:02 Dose: 10 mg Lorazepam (Ativan) 1 - 3 mg IVPUSH Q4H PRN; Protocol PRN Reason: Alcohol Withdrawal Last Admin: 04/02/17 00:01 Dose: 1 mg Morphine Sulfate (Morphine) 2 mg IVPUSH Q2H PRN PRN Reason: Pain (severe 7-10) Multivitamins/Minerals/Vitamin C (Tab-A-Karon) 1 tab PO BEDTIME [facility] Last Admin: 04/01/17 21:48 Dose: 1 tab Nicotine (Habitrol) 21 mg TRDERM DAILY [facility] Last Admin: 04/02/17 08:01 Dose: 21 mg Oxycodone HCl (Oxycodone) 5 mg PO Q4H PRN PRN Reason: Pain (moderate 4-6) Thiamine HCl (Vitamin B-1) 100 mg PO DAILY [facility] Last Admin: 04/02/17 08:02 Dose: 100 mg Discontinued Medications Enoxaparin Sodium (Lovenox) 40 mg SUBCUT DAILY [facility] Last Admin: 04/01/17 10:17 Dose: 40 mg Folic Acid (Folic Acid) 1 mg PO DAILY [facility] Last Admin: 03/31/17 09:03 Dose: 1 mg Sodium Chloride (Normal Saline) 1,000 mls @ 125 mls/hr IV ASDIRECTED [facility] Last Admin: 03/27/17 20:15 Dose: 125 mls/hr Thiamine HCl 100 mg/ Sodium (Chloride) 101 mls @ 202 mls/hr IV ONETIME ONE Stop: 03/27/17 19:45 Last Admin: 03/27/17 20:17 Dose: 202 mls/hr Thiamine HCl 100 mg/ Sodium (Chloride) 101 mls @ 202 mls/hr IV ONETIME ONE Stop: 03/27/17 20:44 Last Admin: 03/27/17 20:24 Dose: Not Given Multivitamins/Minerals 10 ml/ (Sodium Chloride) 1,010 mls @ 100 mls/hr IV ONETIME ONE Stop: 03/28/17 09:50 Last Admin: 03/28/17 00:59 Dose: 100 mls/hr Sodium Chloride (Normal Saline) 1,000 mls @ 100 mls/hr IV ASDIRECTED [facility] Last Admin: 04/01/17 12:40 Dose: 100 mls/hr Iopamidol (Isovue Multipack-370 (76%)) 50 ml IVPUSH ONETIME STA Stop: 03/29/17 12:08 Last Admin: 03/29/17 12:07 Dose: 50 ml Lisinopril (Prinivil) 10 mg PO DAILY [facility] Last Admin: 04/01/17 10:10 Dose: 10 mg Thiamine HCl (Vitamin B-1) 100 mg PO BEDTIME [facility] Last Admin: 03/31/17 20:00 Dose: 100 mg - Exam General: Alert, Cooperative. No: Oriented Lungs: Normal Respiratory Effort GI/Abdominal Exam: Non-Tender (still requires two person assist to ambulates; leans to the right when walking. ) - Problem List & Annotations (1) Alcohol use disorder SNOMED Code(s): 30576838, 36962223 Code(s): F10.99 - ALCOHOL USE, UNSP WITH UNSPECIFIED ALCOHOL-INDUCED DISORDER Status: Acute Priority: High Current Visit: Yes (2) Altered mental status SNOMED Code(s): 721178601 Code(s): R41.82 - ALTERED MENTAL STATUS, UNSPECIFIED Status: Acute Priority: High Current Visit: Yes Qualifiers: Altered mental status type: transient alteration of awareness Qualified Code(s): R40.4 - Transient alteration of awareness (3) Weakness SNOMED Code(s): 57953062 Code(s): R53.1 - WEAKNESS Status: Acute Current Visit: Yes (4) Gait disturbance SNOMED Code(s): 48932971 Code(s): R26.9 - UNSPECIFIED ABNORMALITIES OF GAIT AND MOBILITY Status: Chronic Priority: High Current Visit: Yes (5) Elevated blood pressure reading SNOMED Code(s): 94930025 Code(s): R03.0 - ELEVATED BLOOD-PRESSURE READING, W/O DIAGNOSIS OF HTN Status: Acute Current Visit: No - Problem List Review Problem List Initiated/Reviewed/Updated: Yes - My Orders Last 24 Hours: My Active Orders 04/01/17 15:45 Multivitamins [Tab-A-Karon] 1 tab PO BEDTIME 04/01/17 21:00 Lisinopril [Prinivil] 10 mg PO BID 04/02/17 13:51 CBC WITH AUTO DIFF [HEME] Routine 04/03/17 05:11 COMPREHENSIVE METABOLIC PN,CMP [CHEM] AM MAGNESIUM [CHEM] AM - Plan Plan:: The patient is a 71-year-old gentleman who still has altered mental status. He is somewhat more alert however he thinks it's 1975. The patient had a CT scan of his head with contrast as he is not able to have a MRI secondary to his pacemaker. The patient has been continued on thiamine and folate out of concern for possible alcohol related encephalopathy. The patient is disoriented and he has somewhat difficult time in ambulation. He has been evaluated by physical therapy. 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 He has not thus far demonstrated in the effort for self-care and he remains disheveled and appears to have somewhat of a self-care deficit. The patient will be maintained on fluids, diet as tolerated, thiamine and folate as previously ordered. The patient may need further evaluation for consideration as possible placement. CT scan does not show any evidence of acute intracranial pathology however there is significant volume loss associated with dementia. The patient also had been complaining of right-sided headache and there is no specific intracranial pathology to explain this. The patient will be monitored closely and his overall treatment plan will be adjusted accordingly. 03/30/2017 I discussed case with his daughter at bedside. I advised that he likely has a multifactorial dementia with causative factors including: vascular dementia, alcohol related dementia, chronic degenerative dementia. carotid US, echo, repeat head CT probably Sunday. Monitor lab in am. I advised that he may need placement at [place]. PT / OT consult. 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 he is being seen by PT consider [place] Sunday or Sunday. Rohan Bonilla MD 04/01/2017 I do not believe that he is safe to discharge home. I have discussed [place] placement with his family in the past. Will readdress this tomorrow. Rohan Bonilla MD 04/02/2017 lab in am consider [facility] home when medically stable [place]rav, from social work advised that he may need screening from the state Rohan Bonilla MD
--- NOTE | 2017-04-02 15:11 | US ---
EXAM DATE: 03/28/17 PATIENT'S AGE: 71 Patient: NEDRA ELMORE Facility: [place], [place] Site . Site : 1945 Study: US Neck Angio Doppler [id number]/2017 12:25:05 PM Ordering Physician: Mikaela Bowens Final Report: Indication: Stroke-like symptoms Technique: Carotid duplex ultrasound was performed. Comparison: None available Findings: There is moderate to severe atherosclerosis of the left carotid bifurcation causing approximately 60 percent stenosis of the proximal internal carotid artery. Peak systolic flow velocities in the left external, internal, and common carotid arteries are within normal limits, but the internal carotid to common carotid artery ratio of systolic velocities 2.31 indicative of 60-79 percent stenosis. There is moderate atherosclerosis of the right carotid bifurcation causing approximately 40 percent stenosis of the proximal internal carotid artery. Peak systolic flow velocities in the right external, internal, and common carotid arteries are within normal limits. Antegrade flow is demonstrated in both vertebral arteries. Impression: Approximately 60 percent stenosis of the left and 40 percent stenosis of the right internal carotid arteries secondary to atherosclerotic disease. Dictated by Venkat Ralph MD @ Mar 31 2017 2:13PM (Electronic Signature) Report Signed by Proxy. BLANCHE
[2017-04-02] MEDS: Multivitamin Tab PO SCH (20:13)
[2017-04-02] MEDS: Folic Acid 1 MG Tab PO SCH (20:13)
[2017-04-02] MEDS: atorvaSTATin 20 MG Tab PO SCH (20:13)
[2017-04-03 05:54] LABS: CHLORIDE,CL 104 mmol/L (98-110); SODIUM,NA 134 mmol/L (136-146)
[2017-04-03] MEDS: Levothyroxine 25 MCG Tab PO SCH (06:48)
[2017-04-03] MEDS: Insulin Aspart 100 Units/ML 3 ML Pen SUBCUT SCH ×4 (06:49→22:37)
[2017-04-03] MEDS: Thiamine 100 MG Tab PO SCH (08:36)
[2017-04-03] MEDS: Nicotine 21 MG/24 Hr Patch TRDERM SCH (08:37)
[2017-04-03] MEDS: Lisinopril 10 MG Tab PO SCH ×2 (08:38→20:26)
[2017-04-03] MEDS: LORazepam 2 MG/ML MDV IVPUSH PRN (11:38)
--- NOTE | 2017-04-03 14:23 | PCM.PN ---
- General Info Date of Service: 04/03/17 Subjective Update: He has periods of agitation. He is unable to ambulate - Patient Data Vitals - Most Recent: Last Vital Signs Temp 97.5 F 04/03/17 11:35 Pulse 61 04/03/17 11:35 Resp 20 04/03/17 11:35 BP 139/81 04/03/17 11:35 Pulse Ox 97 04/03/17 11:35 Weight - Most Recent: 69.5 kg I&O - Last 24 Hours: Intake & Output 04/02/17 04/03/17 04/03/17 22:59 06:59 14:59 Intake Total 818 500 Output Total 750 500 Balance 68 0 Lab Results Last 24 Hours: Laboratory Results - last 24 hr 04/02/17 04/02/17 04/02/17 Range/Units 14:23 16:51 16:59 WBC 4.75 (4.0-11.0) K/uL RBC 4.91 (4.50-5.90) M/uL Hgb 14.0 (13.0-17.0) g/dL Hct 41.6 (38.0-50.0) % MCV 84.7 (80.0-98.0) fL MCH 28.5 (27.0-32.0) pg MCHC 33.7 (31.0-37.0) g/dL RDW Std Deviation 43.4 (28.0-62.0) fl RDW Coeff of Rayshawn 14 (11.0-15.0) % Plt Count 186 (150-400) K/uL MPV 9.00 (7.40-12.00) fL Neut % (Auto) 58.6 (48.0-80.0) % Lymph % (Auto) 28.2 (16.0-40.0) % [place] % (Auto) 10.5 (0.0-15.0) % Eos % (Auto) 1.9 (0.0-7.0) % Baso % (Auto) 0.8 (0.0-1.5) % Neut # (Auto) 2.8 (1.4-5.7) K/uL Lymph # (Auto) 1.3 (0.6-2.4) K/uL [place] # (Auto) 0.5 (0.0-0.8) K/uL Eos # (Auto) 0.1 (0.0-0.7) K/uL Baso # (Auto) 0.0 (0.0-0.1) K/uL Nucleated RBC % 0.0 /100WBC Nucleated RBCs # 0 K/uL Sodium (136-146) mmol/L Potassium (3.5-5.1) mmol/L Chloride (98-110) mmol/L Carbon Dioxide (21-31) mmol/L BUN (6.0-23.0) mg/dL Creatinine (0.6-1.5) mg/dL Est Cr Clr Drug Dosing mL/min Estimated GFR (MDRD) ml/min Glucose (60-110) mg/dL POC Glucose 115 H 87 (60-110) mg/dL Calcium (8.8-10.8) mg/dL Magnesium (1.5-2.3) mEq/L Total Bilirubin (0.1-1.5) mg/dL AST (5-40) IU/L ALT (8-54) IU/L Alkaline Phosphatase (40-150) Total Protein (6.0-8.0) g/dL Albumin (3.4-4.8) g/dL Globulin (2.0-3.5) g/dL Albumin/Globulin Ratio (1.3-2.8) 04/02/17 04/03/17 04/03/17 Range/Units 21:16 04:58 06:37 WBC (4.0-11.0) K/uL RBC (4.50-5.90) M/uL Hgb (13.0-17.0) g/dL Hct (38.0-50.0) % MCV (80.0-98.0) fL MCH (27.0-32.0) pg MCHC (31.0-37.0) g/dL RDW Std Deviation (28.0-62.0) fl RDW Coeff of Rayshawn (11.0-15.0) % Plt Count (150-400) K/uL MPV (7.40-12.00) fL Neut % (Auto) (48.0-80.0) % Lymph % (Auto) (16.0-40.0) % [place] % (Auto) (0.0-15.0) % Eos % (Auto) (0.0-7.0) % Baso % (Auto) (0.0-1.5) % Neut # (Auto) (1.4-5.7) K/uL Lymph # (Auto) (0.6-2.4) K/uL [place] # (Auto) (0.0-0.8) K/uL Eos # (Auto) (0.0-0.7) K/uL Baso # (Auto) (0.0-0.1) K/uL Nucleated RBC % /100WBC Nucleated RBCs # K/uL Sodium 134 L (136-146) mmol/L Potassium 3.9 (3.5-5.1) mmol/L Chloride 104 (98-110) mmol/L Carbon Dioxide 22 (21-31) mmol/L BUN 21 (6.0-23.0) mg/dL Creatinine 0.8 (0.6-1.5) mg/dL Est Cr Clr Drug Dosing 84.46 mL/min Estimated GFR (MDRD) > 60.0 ml/min Glucose 104 (60-110) mg/dL POC Glucose 146 H 100 (60-110) mg/dL Calcium 9.4 (8.8-10.8) mg/dL Magnesium 1.5 (1.5-2.3) mEq/L Total Bilirubin 0.4 (0.1-1.5) mg/dL AST 17 (5-40) IU/L ALT 23 (8-54) IU/L Alkaline Phosphatase 59 (40-150) Total Protein 6.5 (6.0-8.0) g/dL Albumin 3.6 (3.4-4.8) g/dL Globulin 2.9 (2.0-3.5) g/dL Albumin/Globulin Ratio 1.2 L (1.3-2.8) 04/03/17 Range/Units 11:18 WBC (4.0-11.0) K/uL RBC (4.50-5.90) M/uL Hgb (13.0-17.0) g/dL Hct (38.0-50.0) % MCV (80.0-98.0) fL MCH (27.0-32.0) pg MCHC (31.0-37.0) g/dL RDW Std Deviation (28.0-62.0) fl RDW Coeff of Rayshawn (11.0-15.0) % Plt Count (150-400) K/uL MPV (7.40-12.00) fL Neut % (Auto) (48.0-80.0) % Lymph % (Auto) (16.0-40.0) % [place] % (Auto) (0.0-15.0) % Eos % (Auto) (0.0-7.0) % Baso % (Auto) (0.0-1.5) % Neut # (Auto) (1.4-5.7) K/uL Lymph # (Auto) (0.6-2.4) K/uL [place] # (Auto) (0.0-0.8) K/uL Eos # (Auto) (0.0-0.7) K/uL Baso # (Auto) (0.0-0.1) K/uL Nucleated RBC % /100WBC Nucleated RBCs # K/uL Sodium (136-146) mmol/L Potassium (3.5-5.1) mmol/L Chloride (98-110) mmol/L Carbon Dioxide (21-31) mmol/L BUN (6.0-23.0) mg/dL Creatinine (0.6-1.5) mg/dL Est Cr Clr Drug Dosing mL/min Estimated GFR (MDRD) ml/min Glucose (60-110) mg/dL POC Glucose 104 (60-110) mg/dL Calcium (8.8-10.8) mg/dL Magnesium (1.5-2.3) mEq/L Total Bilirubin (0.1-1.5) mg/dL AST (5-40) IU/L ALT (8-54) IU/L Alkaline Phosphatase (40-150) Total Protein (6.0-8.0) g/dL Albumin (3.4-4.8) g/dL Globulin (2.0-3.5) g/dL Albumin/Globulin Ratio (1.3-2.8) Med Orders - Current: Current Medications Acetaminophen (Tylenol) 650 mg PO Q4H PRN PRN Reason: Pain (mild 1-3) Last Admin: 04/02/17 07:06 Dose: 650 mg Atorvastatin Calcium (Lipitor) 20 mg PO BEDTIME [facility] Last Admin: 04/02/17 20:13 Dose: 20 mg Folic Acid (Folic Acid) 1 mg PO BEDTIME [facility] Last Admin: 04/02/17 20:13 Dose: 1 mg Insulin Aspart (Novolog) 0 unit SUBCUT ACBED [facility] PRN Reason: Protocol Last Admin: 04/03/17 11:23 Dose: Not Given Levothyroxine Sodium (Levothyroxine) 25 mcg PO ACBREAKFAST [facility] Last Admin: 04/03/17 06:48 Dose: 25 mcg Lisinopril (Prinivil) 10 mg PO BID [facility] Last Admin: 04/03/17 08:38 Dose: 10 mg Lorazepam (Ativan) 1 - 3 mg IVPUSH Q4H PRN; Protocol PRN Reason: Alcohol Withdrawal Last Admin: 04/03/17 11:38 Dose: 1 mg Morphine Sulfate (Morphine) 2 mg IVPUSH Q2H PRN PRN Reason: Pain (severe 7-10) Multivitamins/Minerals/Vitamin C (Tab-A-Karon) 1 tab PO BEDTIME [facility] Last Admin: 04/02/17 20:13 Dose: 1 tab Nicotine (Habitrol) 21 mg TRDERM DAILY [facility] Last Admin: 04/03/17 08:37 Dose: 21 mg Oxycodone HCl (Oxycodone) 5 mg PO Q4H PRN PRN Reason: Pain (moderate 4-6) Thiamine HCl (Vitamin B-1) 100 mg PO DAILY [facility] Last Admin: 04/03/17 08:36 Dose: 100 mg Discontinued Medications Enoxaparin Sodium (Lovenox) 40 mg SUBCUT DAILY [facility] Last Admin: 04/01/17 10:17 Dose: 40 mg Folic Acid (Folic Acid) 1 mg PO DAILY [facility] Last Admin: 03/31/17 09:03 Dose: 1 mg Sodium Chloride (Normal Saline) 1,000 mls @ 125 mls/hr IV ASDIRECTED [facility] Last Admin: 03/27/17 20:15 Dose: 125 mls/hr Thiamine HCl 100 mg/ Sodium (Chloride) 101 mls @ 202 mls/hr IV ONETIME ONE Stop: 03/27/17 19:45 Last Admin: 03/27/17 20:17 Dose: 202 mls/hr Thiamine HCl 100 mg/ Sodium (Chloride) 101 mls @ 202 mls/hr IV ONETIME ONE Stop: 03/27/17 20:44 Last Admin: 03/27/17 20:24 Dose: Not Given Multivitamins/Minerals 10 ml/ (Sodium Chloride) 1,010 mls @ 100 mls/hr IV ONETIME ONE Stop: 03/28/17 09:50 Last Admin: 03/28/17 00:59 Dose: 100 mls/hr Sodium Chloride (Normal Saline) 1,000 mls @ 100 mls/hr IV ASDIRECTED [facility] Last Admin: 04/01/17 12:40 Dose: 100 mls/hr Iopamidol (Isovue Multipack-370 (76%)) 50 ml IVPUSH ONETIME STA Stop: 03/29/17 12:08 Last Admin: 03/29/17 12:07 Dose: 50 ml Lisinopril (Prinivil) 10 mg PO DAILY [facility] Last Admin: 04/01/17 10:10 Dose: 10 mg Thiamine HCl (Vitamin B-1) 100 mg PO BEDTIME [facility] Last Admin: 03/31/17 20:00 Dose: 100 mg - Exam Lungs: Clear to Auscultation, Normal Respiratory Effort Cardiovascular: Regular Rate, Regular Rhythm Physical Findings Comments:: He has periods when he is "picking at the air'. lungs CTA two person assist to stand leans to the right when standing - Problem List & Annotations (1) Alcohol use disorder SNOMED Code(s): 13327601, 03908008 Code(s): F10.99 - ALCOHOL USE, UNSP WITH UNSPECIFIED ALCOHOL-INDUCED DISORDER Status: Acute Priority: High Current Visit: Yes (2) Altered mental status SNOMED Code(s): 701750195 Code(s): R41.82 - ALTERED MENTAL STATUS, UNSPECIFIED Status: Acute Priority: High Current Visit: Yes Qualifiers: Altered mental status type: transient alteration of awareness Qualified Code(s): R40.4 - Transient alteration of awareness (3) Weakness SNOMED Code(s): 95450089 Code(s): R53.1 - WEAKNESS Status: Acute Current Visit: Yes (4) Gait disturbance SNOMED Code(s): 47539463 Code(s): R26.9 - UNSPECIFIED ABNORMALITIES OF GAIT AND MOBILITY Status: Chronic Priority: High Current Visit: Yes (5) Elevated blood pressure reading SNOMED Code(s): 10155558 Code(s): R03.0 - ELEVATED BLOOD-PRESSURE READING, W/O DIAGNOSIS OF HTN Status: Acute Current Visit: No - Problem List Review Problem List Initiated/Reviewed/Updated: Yes - Plan Plan:: The patient is a 71-year-old gentleman who still has altered mental status. He is somewhat more alert however he thinks it's 1976. The patient had a CT scan of his head with contrast as he is not able to have a MRI secondary to his pacemaker. The patient has been continued on thiamine and folate out of concern for possible alcohol related encephalopathy. The patient is disoriented and he has somewhat difficult time in ambulation. He has been evaluated by physical therapy. 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 He has not thus far demonstrated in the effort for self-care and he remains disheveled and appears to have somewhat of a self-care deficit. The patient will be maintained on fluids, diet as tolerated, thiamine and folate as previously ordered. The patient may need further evaluation for consideration as possible placement. CT scan does not show any evidence of acute intracranial pathology however there is significant volume loss associated with dementia. The patient also had been complaining of right-sided headache and there is no specific intracranial pathology to explain this. The patient will be monitored closely and his overall treatment plan will be adjusted accordingly. 03/30/2017 I discussed case with his daughter at bedside. I advised that he likely has a multifactorial dementia with causative factors including: vascular dementia, alcohol related dementia, chronic degenerative dementia. carotid US, echo, repeat head CT probably Sunday. Monitor lab in am. I advised that he may need placement at [facility]. PT / OT consult. 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 he is being seen by PT consider [facility] Sunday or Sunday. Rohan Bonilla MD 04/01/2017 I do not believe that he is safe to discharge home. I have discussed [facility] placement with his family in the past. Will readdress this tomorrow. Rohan Bonilla MD 04/02/2017 lab in am consider [facility] home when medically stable Sourav, from social work advised that he may need screening from the [facility] Rohan Bonilla MD 04/03/2917 He has dementia with multiple causes likely including his alcoholism, and suspected cerebrovascular disease. We still do not know what his baseline neurologic and motor function is. He is currently working with PT. I was advised today by geriatric social work professor that [facility] has declined to accept the patient. We are currently waiting on placement issues for him. Rohan Bonilla MD
[2017-04-03] MEDS: atorvaSTATin 20 MG Tab PO SCH (20:24)
[2017-04-03] MEDS: Multivitamin Tab PO SCH (20:25)
[2017-04-03] MEDS: Folic Acid 1 MG Tab PO SCH (20:25)
[2017-04-03] MEDS: Acetaminophen 325 MG Tab PO PRN (20:31)
[2017-04-04] MEDS ORDERED: Lisinopril 10 MG Tab PO SCH (01:15)
[2017-04-04] MEDS: Acetaminophen 325 MG Tab PO PRN ×3 (01:22→23:45)
[2017-04-04] MEDS: Levothyroxine 25 MCG Tab PO SCH (07:34)
[2017-04-04] MEDS: Insulin Aspart 100 Units/ML 3 ML Pen SUBCUT SCH ×4 (08:24→20:26)
[2017-04-04] MEDS: Nicotine 21 MG/24 Hr Patch TRDERM SCH (08:37)
[2017-04-04] MEDS: Lisinopril 10 MG Tab PO SCH ×2 (08:37→20:24)
[2017-04-04] MEDS: Thiamine 100 MG Tab PO SCH (08:39)
--- NOTE | 2017-04-04 15:07 | PCM.DCSUM1 ---
Discharge Summary - Hospital Course Brief History: He was admitted for confusion. He has a history of alcoholism. - Discharge Data Discharge Date: 04/04/17 Discharge Disposition: Home, Self-Care 01 Condition: Fair - Discharge Diagnosis/Problem(s) (1) Alcohol use disorder SNOMED Code(s): 98948134, 56999699 ICD Code: F10.99 - ALCOHOL USE, UNSP WITH UNSPECIFIED ALCOHOL-INDUCED DISORDER Status: Acute Priority: High Current Visit: Yes (2) Altered mental status SNOMED Code(s): 624040256 ICD Code: R41.82 - ALTERED MENTAL STATUS, UNSPECIFIED Status: Acute Priority: High Current Visit: Yes Qualifiers: Altered mental status type: transient alteration of awareness Qualified Code(s): R40.4 - Transient alteration of awareness (3) Weakness SNOMED Code(s): 48147224 ICD Code: R53.1 - WEAKNESS Status: Acute Current Visit: Yes (4) Gait disturbance SNOMED Code(s): 58659086 ICD Code: R26.9 - UNSPECIFIED ABNORMALITIES OF GAIT AND MOBILITY Status: Chronic Priority: High Current Visit: Yes (5) Elevated blood pressure reading SNOMED Code(s): 62135672 ICD Code: R03.0 - ELEVATED BLOOD-PRESSURE READING, W/O DIAGNOSIS OF HTN Status: Acute Current Visit: No - Patient Summary/Data Consults: Consultations 03/30/17 16:03 Consult to Occupational Therapy [OT Evaluation and Treatment] [CONS] Routine - Discharge Plan Home Medications: Home Meds Folic Acid 1 mg PO BEDTIME #30 tablet 02/09/17 [Rx] Thiamine [Vitamin B-1] 100 mg PO BEDTIME #30 tablet 02/09/17 [Rx] Levothyroxine 25 mcg PO DAILY 03/27/17 [History] Lisinopril [Prinivil] 10 mg PO DAILY 03/27/17 [History] Forms: ED Department Discharge Referrals: Ortiz De Luna MD [Physician] - 04/09/17 10:00 am - Patient Data Vitals - Most Recent: Last Vital Signs Temp 98.3 F 04/04/17 12:00 Pulse 64 04/04/17 12:00 Resp 18 04/04/17 12:00 BP 152/89 H 04/04/17 12:00 Pulse Ox 97 04/04/17 12:00 Weight - Most Recent: 69.5 kg I&O - Last 24 hours: Intake & Output 04/04/17 04/04/17 04/04/17 06:59 14:59 22:59 Intake Total 1100 Output Total 1202 Balance -102 Lab Results - Last 24 hrs: Laboratory Results - last 24 hr 04/03/17 04/03/17 04/04/17 Range/Units 16:41 20:36 06:19 POC Glucose 89 130 H 107 (60-110) mg/dL Med Orders - Current: Current Medications Acetaminophen (Tylenol) 650 mg PO Q4H PRN PRN Reason: Pain (mild 1-3) Last Admin: 04/04/17 07:34 Dose: 650 mg Atorvastatin Calcium (Lipitor) 20 mg PO BEDTIME [facility] Last Admin: 04/03/17 20:24 Dose: 20 mg Folic Acid (Folic Acid) 1 mg PO BEDTIME [facility] Last Admin: 04/03/17 20:25 Dose: 1 mg Insulin Aspart (Novolog) 0 unit SUBCUT ACBED [facility] PRN Reason: Protocol Last Admin: 04/04/17 12:07 Dose: Not Given Levothyroxine Sodium (Levothyroxine) 25 mcg PO ACBREAKFAST [facility] Last Admin: 04/04/17 07:34 Dose: 25 mcg Lisinopril (Prinivil) 20 mg PO BID [facility] Last Admin: 04/04/17 08:37 Dose: 20 mg Lorazepam (Ativan) 1 - 3 mg IVPUSH Q4H PRN; Protocol PRN Reason: Alcohol Withdrawal Last Admin: 04/03/17 11:38 Dose: 1 mg Morphine Sulfate (Morphine) 2 mg IVPUSH Q2H PRN PRN Reason: Pain (severe 7-10) Multivitamins/Minerals/Vitamin C (Tab-A-Karon) 1 tab PO BEDTIME [facility] Last Admin: 04/03/17 20:25 Dose: 1 tab Nicotine (Habitrol) 21 mg TRDERM DAILY [facility] Last Admin: 04/04/17 08:37 Dose: 21 mg Oxycodone HCl (Oxycodone) 5 mg PO Q4H PRN PRN Reason: Pain (moderate 4-6) Thiamine HCl (Vitamin B-1) 100 mg PO DAILY [facility] Last Admin: 04/04/17 08:39 Dose: 100 mg Discontinued Medications Enoxaparin Sodium (Lovenox) 40 mg SUBCUT DAILY [facility] Last Admin: 04/01/17 10:17 Dose: 40 mg Folic Acid (Folic Acid) 1 mg PO DAILY [facility] Last Admin: 03/31/17 09:03 Dose: 1 mg Sodium Chloride (Normal Saline) 1,000 mls @ 125 mls/hr IV ASDIRECTED [facility] Last Admin: 03/27/17 20:15 Dose: 125 mls/hr Thiamine HCl 100 mg/ Sodium (Chloride) 101 mls @ 202 mls/hr IV ONETIME ONE Stop: 03/27/17 19:45 Last Admin: 03/27/17 20:17 Dose: 202 mls/hr Thiamine HCl 100 mg/ Sodium (Chloride) 101 mls @ 202 mls/hr IV ONETIME ONE Stop: 03/27/17 20:44 Last Admin: 03/27/17 20:24 Dose: Not Given Multivitamins/Minerals 10 ml/ (Sodium Chloride) 1,010 mls @ 100 mls/hr IV ONETIME ONE Stop: 03/28/17 09:50 Last Admin: 03/28/17 00:59 Dose: 100 mls/hr Sodium Chloride (Normal Saline) 1,000 mls @ 100 mls/hr IV ASDIRECTED [facility] Last Admin: 04/01/17 12:40 Dose: 100 mls/hr Iopamidol (Isovue Multipack-370 (76%)) 50 ml IVPUSH ONETIME STA Stop: 03/29/17 12:08 Last Admin: 03/29/17 12:07 Dose: 50 ml Lisinopril (Prinivil) 10 mg PO DAILY [facility] Last Admin: 04/01/17 10:10 Dose: 10 mg Lisinopril (Prinivil) 10 mg PO BID [facility] Last Admin: 04/03/17 20:26 Dose: 10 mg Lisinopril (Prinivil) 10 mg PO DAILY [facility] Stop: 04/04/17 01:16 Last Admin: 04/04/17 01:22 Dose: 10 mg Thiamine HCl (Vitamin B-1) 100 mg PO BEDTIME [facility] Last Admin: 03/31/17 20:00 Dose: 100 mg *Q Meaningful Use (DIS) - VTE *Q VTE Criteria *Q: VTE Mechanical Contraindications *Q: At Risk for Falls - Stroke *Q Stroke Criteria *Q: - AMI *Q AMI Criteria *Q:
--- NOTE | 2017-04-04 15:11 | PCM.PN ---
- General Info Date of Service: 04/04/17 Subjective Update: He is alert. - Patient Data Vitals - Most Recent: Last Vital Signs Temp 98.3 F 04/04/17 12:00 Pulse 64 04/04/17 12:00 Resp 18 04/04/17 12:00 BP 152/89 H 04/04/17 12:00 Pulse Ox 97 04/04/17 12:00 Weight - Most Recent: 69.5 kg I&O - Last 24 Hours: Intake & Output 04/04/17 04/04/17 04/04/17 06:59 14:59 22:59 Intake Total 1100 Output Total 1202 Balance -102 Lab Results Last 24 Hours: Laboratory Results - last 24 hr 04/03/17 04/03/17 04/04/17 Range/Units 16:41 20:36 06:19 POC Glucose 89 130 H 107 (60-110) mg/dL Med Orders - Current: Current Medications Acetaminophen (Tylenol) 650 mg PO Q4H PRN PRN Reason: Pain (mild 1-3) Last Admin: 04/04/17 07:34 Dose: 650 mg Atorvastatin Calcium (Lipitor) 20 mg PO BEDTIME [facility] Last Admin: 04/03/17 20:24 Dose: 20 mg Folic Acid (Folic Acid) 1 mg PO BEDTIME [facility] Last Admin: 04/03/17 20:25 Dose: 1 mg Insulin Aspart (Novolog) 0 unit SUBCUT ACBED [facility] PRN Reason: Protocol Last Admin: 04/04/17 12:07 Dose: Not Given Levothyroxine Sodium (Levothyroxine) 25 mcg PO ACBREAKFAST [facility] Last Admin: 04/04/17 07:34 Dose: 25 mcg Lisinopril (Prinivil) 20 mg PO BID [facility] Last Admin: 04/04/17 08:37 Dose: 20 mg Lorazepam (Ativan) 1 - 3 mg IVPUSH Q4H PRN; Protocol PRN Reason: Alcohol Withdrawal Last Admin: 04/03/17 11:38 Dose: 1 mg Morphine Sulfate (Morphine) 2 mg IVPUSH Q2H PRN PRN Reason: Pain (severe 7-10) Multivitamins/Minerals/Vitamin C (Tab-A-Karon) 1 tab PO BEDTIME [facility] Last Admin: 04/03/17 20:25 Dose: 1 tab Nicotine (Habitrol) 21 mg TRDERM DAILY [facility] Last Admin: 04/04/17 08:37 Dose: 21 mg Oxycodone HCl (Oxycodone) 5 mg PO Q4H PRN PRN Reason: Pain (moderate 4-6) Thiamine HCl (Vitamin B-1) 100 mg PO DAILY [facility] Last Admin: 04/04/17 08:39 Dose: 100 mg Discontinued Medications Enoxaparin Sodium (Lovenox) 40 mg SUBCUT DAILY [facility] Last Admin: 04/01/17 10:17 Dose: 40 mg Folic Acid (Folic Acid) 1 mg PO DAILY [facility] Last Admin: 03/31/17 09:03 Dose: 1 mg Sodium Chloride (Normal Saline) 1,000 mls @ 125 mls/hr IV ASDIRECTED [facility] Last Admin: 03/27/17 20:15 Dose: 125 mls/hr Thiamine HCl 100 mg/ Sodium (Chloride) 101 mls @ 202 mls/hr IV ONETIME ONE Stop: 03/27/17 19:45 Last Admin: 03/27/17 20:17 Dose: 202 mls/hr Thiamine HCl 100 mg/ Sodium (Chloride) 101 mls @ 202 mls/hr IV ONETIME ONE Stop: 03/27/17 20:44 Last Admin: 03/27/17 20:24 Dose: Not Given Multivitamins/Minerals 10 ml/ (Sodium Chloride) 1,010 mls @ 100 mls/hr IV ONETIME ONE Stop: 03/28/17 09:50 Last Admin: 03/28/17 00:59 Dose: 100 mls/hr Sodium Chloride (Normal Saline) 1,000 mls @ 100 mls/hr IV ASDIRECTED [facility] Last Admin: 04/01/17 12:40 Dose: 100 mls/hr Iopamidol (Isovue Multipack-370 (76%)) 50 ml IVPUSH ONETIME STA Stop: 03/29/17 12:08 Last Admin: 03/29/17 12:07 Dose: 50 ml Lisinopril (Prinivil) 10 mg PO DAILY [facility] Last Admin: 04/01/17 10:10 Dose: 10 mg Lisinopril (Prinivil) 10 mg PO BID [facility] Last Admin: 04/03/17 20:26 Dose: 10 mg Lisinopril (Prinivil) 10 mg PO DAILY [facility] Stop: 04/04/17 01:16 Last Admin: 04/04/17 01:22 Dose: 10 mg Thiamine HCl (Vitamin B-1) 100 mg PO BEDTIME [facility] Last Admin: 03/31/17 20:00 Dose: 100 mg - Exam General: Alert, Cooperative. No: Oriented Lungs: Clear to Auscultation, Normal Respiratory Effort Cardiovascular: Regular Rate, Regular Rhythm Psy/Mental Status: No: Agitated Physical Findings Comments:: he cannot ambulate unassisted. he can sit in a chair unassisted for a short time. - Problem List & Annotations (1) Alcohol use disorder SNOMED Code(s): 05045723, 55439970 Code(s): F10.99 - ALCOHOL USE, UNSP WITH UNSPECIFIED ALCOHOL-INDUCED DISORDER Status: Acute Priority: High Current Visit: Yes (2) Altered mental status SNOMED Code(s): 750412063 Code(s): R41.82 - ALTERED MENTAL STATUS, UNSPECIFIED Status: Acute Priority: High Current Visit: Yes Qualifiers: Altered mental status type: transient alteration of awareness Qualified Code(s): R40.4 - Transient alteration of awareness (3) Weakness SNOMED Code(s): 38317432 Code(s): R53.1 - WEAKNESS Status: Acute Current Visit: Yes (4) Gait disturbance SNOMED Code(s): 20507812 Code(s): R26.9 - UNSPECIFIED ABNORMALITIES OF GAIT AND MOBILITY Status: Chronic Priority: High Current Visit: Yes (5) Elevated blood pressure reading SNOMED Code(s): 19076471 Code(s): R03.0 - ELEVATED BLOOD-PRESSURE READING, W/O DIAGNOSIS OF HTN Status: Acute Current Visit: No - Problem List Review Problem List Initiated/Reviewed/Updated: Yes - My Orders Last 24 Hours: My Active Orders 04/04/17 09:00 Lisinopril [Prinivil] 20 mg PO BID - Plan Plan:: The patient is a 71-year-old gentleman who still has altered mental status. He is somewhat more alert however he thinks it's 1975. The patient had a CT scan of his head with contrast as he is not able to have a MRI secondary to his pacemaker. The patient has been continued on thiamine and folate out of concern for possible alcohol related encephalopathy. The patient is disoriented and he has somewhat difficult time in ambulation. He has been evaluated by physical therapy. 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 He has not thus far demonstrated in the effort for self-care and he remains disheveled and appears to have somewhat of a self-care deficit. The patient will be maintained on fluids, diet as tolerated, thiamine and folate as previously ordered. The patient may need further evaluation for consideration as possible placement. CT scan does not show any evidence of acute intracranial pathology however there is significant volume loss associated with dementia. The patient also had been complaining of right-sided headache and there is no specific intracranial pathology to explain this. The patient will be monitored closely and his overall treatment plan will be adjusted accordingly. 03/30/2017 I discussed case with his daughter at bedside. I advised that he likely has a multifactorial dementia with causative factors including: vascular dementia, alcohol related dementia, chronic degenerative dementia. carotid US, echo, repeat head CT probably Sunday. Monitor lab in am. I advised that he may need placement at [facility]. PT / OT consult. 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 he is being seen by PT consider [facility] Sunday or Sunday. Rohan Bonilla MD 04/01/2017 I do not believe that he is safe to discharge home. I have discussed [facility] placement with his family in the past. Will readdress this tomorrow. Rohan Bonilla MD 04/02/2017 lab in am consider [facility] home when medically stable Sourav, from social work advised that he may need screening from the state Rohan Bonilla MD 04/03/2917 He has dementia with multiple causes likely including his alcoholism, and suspected cerebrovascular disease. We still do not know what his baseline neurologic and motor function is. He is currently working with PT. I was advised today by long term care social worker that [facility] has declined to accept the patient. We are currently waiting on placement issues for him. Rohan Bonilla MD 04/04/2017 His daughter Maria Esther insists on a transfer to [facility]. I spoke with DR Cummings, hospitalist in [facility] who states that they cannot accept him as an regular inpatient but we could ask long term care social worker to request swing bed status for him. Rohan Bonilla MD
[2017-04-04] MEDS: LORazepam 2 MG/ML MDV IVPUSH PRN (19:37)
[2017-04-04] MEDS: Folic Acid 1 MG Tab PO SCH (20:24)
[2017-04-04] MEDS: Multivitamin Tab PO SCH (20:25)
[2017-04-04] MEDS: atorvaSTATin 20 MG Tab PO SCH (20:25)
[2017-04-05] MEDS: Levothyroxine 25 MCG Tab PO SCH (06:31)
[2017-04-05] MEDS: Insulin Aspart 100 Units/ML 3 ML Pen SUBCUT SCH ×4 (06:34→22:17)
[2017-04-05] MEDS: Nicotine 21 MG/24 Hr Patch TRDERM SCH (09:22)
[2017-04-05] MEDS: Thiamine 100 MG Tab PO SCH (09:23)
[2017-04-05] MEDS: Lisinopril 10 MG Tab PO SCH ×2 (09:23→21:12)
--- NOTE | 2017-04-05 13:39 | PCM.PN ---
- Review of Systems Systems Review Comment:: patient was walking by himself last night, he received ativan last night, lethargic this morning. - Patient Data Vitals - Most Recent: Last Vital Signs Temp 36.6 C 04/05/17 12:00 Pulse 61 04/05/17 12:00 Resp 16 04/05/17 12:00 BP 140/69 04/05/17 12:00 Pulse Ox 97 04/05/17 12:00 Weight - Most Recent: 69.5 kg I&O - Last 24 Hours: Intake & Output 04/04/17 04/05/17 04/05/17 22:59 06:59 14:59 Intake Total 1200 500 Output Total 761 400 Balance 439 100 Lab Results Last 24 Hours: Laboratory Results - last 24 hr 04/04/17 04/04/17 04/04/17 Range/Units 11:29 16:40 20:23 POC Glucose 99 94 185 H (60-110) mg/dL 04/05/17 04/05/17 Range/Units 06:33 11:30 POC Glucose 105 109 (60-110) mg/dL Med Orders - Current: Current Medications Acetaminophen (Tylenol) 650 mg PO Q4H PRN PRN Reason: Pain (mild 1-3) Last Admin: 04/04/17 23:45 Dose: 650 mg Atorvastatin Calcium (Lipitor) 20 mg PO BEDTIME [facility] Last Admin: 04/04/17 20:25 Dose: 20 mg Folic Acid (Folic Acid) 1 mg PO BEDTIME [facility] Last Admin: 04/04/17 20:24 Dose: 1 mg Insulin Aspart (Novolog) 0 unit SUBCUT ACBED [facility] PRN Reason: Protocol Last Admin: 04/05/17 12:31 Dose: Not Given Levothyroxine Sodium (Levothyroxine) 25 mcg PO ACBREAKFAST [facility] Last Admin: 04/05/17 06:31 Dose: 25 mcg Lisinopril (Prinivil) 20 mg PO BID [facility] Last Admin: 04/05/17 09:23 Dose: 20 mg Lorazepam (Ativan) 1 - 3 mg IVPUSH Q4H PRN; Protocol PRN Reason: Alcohol Withdrawal Last Admin: 04/04/17 19:37 Dose: 1 mg Morphine Sulfate (Morphine) 2 mg IVPUSH Q2H PRN PRN Reason: Pain (severe 7-10) Multivitamins/Minerals/Vitamin C (Tab-A-Karon) 1 tab PO BEDTIME [facility] Last Admin: 04/04/17 20:25 Dose: 1 tab Nicotine (Habitrol) 21 mg TRDERM DAILY [facility] Last Admin: 04/05/17 09:22 Dose: 21 mg Oxycodone HCl (Oxycodone) 5 mg PO Q4H PRN PRN Reason: Pain (moderate 4-6) Thiamine HCl (Vitamin B-1) 100 mg PO DAILY [facility] Last Admin: 04/05/17 09:23 Dose: 100 mg Discontinued Medications Enoxaparin Sodium (Lovenox) 40 mg SUBCUT DAILY [facility] Last Admin: 04/01/17 10:17 Dose: 40 mg Folic Acid (Folic Acid) 1 mg PO DAILY [facility] Last Admin: 03/31/17 09:03 Dose: 1 mg Sodium Chloride (Normal Saline) 1,000 mls @ 125 mls/hr IV ASDIRECTED [facility] Last Admin: 03/27/17 20:15 Dose: 125 mls/hr Thiamine HCl 100 mg/ Sodium (Chloride) 101 mls @ 202 mls/hr IV ONETIME ONE Stop: 03/27/17 19:45 Last Admin: 03/27/17 20:17 Dose: 202 mls/hr Thiamine HCl 100 mg/ Sodium (Chloride) 101 mls @ 202 mls/hr IV ONETIME ONE Stop: 03/27/17 20:44 Last Admin: 03/27/17 20:24 Dose: Not Given Multivitamins/Minerals 10 ml/ (Sodium Chloride) 1,010 mls @ 100 mls/hr IV ONETIME ONE Stop: 03/28/17 09:50 Last Admin: 03/28/17 00:59 Dose: 100 mls/hr Sodium Chloride (Normal Saline) 1,000 mls @ 100 mls/hr IV ASDIRECTED [facility] Last Admin: 04/01/17 12:40 Dose: 100 mls/hr Iopamidol (Isovue Multipack-370 (76%)) 50 ml IVPUSH ONETIME STA Stop: 03/29/17 12:08 Last Admin: 03/29/17 12:07 Dose: 50 ml Lisinopril (Prinivil) 10 mg PO DAILY [facility] Last Admin: 04/01/17 10:10 Dose: 10 mg Lisinopril (Prinivil) 10 mg PO BID [facility] Last Admin: 04/03/17 20:26 Dose: 10 mg Lisinopril (Prinivil) 10 mg PO DAILY [facility] Stop: 04/04/17 01:16 Last Admin: 04/04/17 01:22 Dose: 10 mg Thiamine HCl (Vitamin B-1) 100 mg PO BEDTIME [facility] Last Admin: 03/31/17 20:00 Dose: 100 mg - Exam General: Alert, Oriented Neck: Supple Lungs: Clear to Auscultation, Normal Respiratory Effort Cardiovascular: Regular Rate, Regular Rhythm GI/Abdominal Exam: Normal Bowel Sounds, Non-Tender, No Distention Extremities: Normal Inspection Skin: Warm, Dry, Intact Neurological: No New Focal Deficit - Problem List Review Problem List Initiated/Reviewed/Updated: Yes - Plan Plan:: 71 yo male with pmh of ETOH abuse who presents with altered mental status and generalized weakness. Patient's encephalopathy likely related to alcohol use. His strength is improving. We will continue physical therapy. If patient continues to improve expect discharge home.
[2017-04-05] MEDS: atorvaSTATin 20 MG Tab PO SCH (21:13)
[2017-04-05] MEDS: Folic Acid 1 MG Tab PO SCH (21:13)
[2017-04-05] MEDS: Multivitamin Tab PO SCH (21:13)
[2017-04-05] MEDS: Acetaminophen 325 MG Tab PO PRN (22:19)
[2017-04-06] MEDS: Levothyroxine 25 MCG Tab PO SCH (06:47)
[2017-04-06] MEDS: Insulin Aspart 100 Units/ML 3 ML Pen SUBCUT SCH ×4 (06:48→20:19)
[2017-04-06] MEDS: Lisinopril 10 MG Tab PO SCH ×2 (09:32→20:05)
[2017-04-06] MEDS: Thiamine 100 MG Tab PO SCH (09:33)
[2017-04-06] MEDS: Nicotine 21 MG/24 Hr Patch TRDERM SCH (09:33)
--- NOTE | 2017-04-06 13:13 | PCM.PN ---
- Review of Systems Systems Review Comment:: no new complaints, requires two assist with ambulation with walker - Patient Data Vitals - Most Recent: Last Vital Signs Temp 36.7 C 04/06/17 08:46 Pulse 64 04/06/17 08:46 Resp 20 04/06/17 08:46 BP 147/88 H 04/06/17 09:32 Pulse Ox 97 04/06/17 08:46 Weight - Most Recent: 69.5 kg I&O - Last 24 Hours: Intake & Output 04/05/17 04/06/17 04/06/17 22:59 06:59 14:59 Intake Total 960 980 600 Output Total 746 800 Balance 214 180 600 Lab Results Last 24 Hours: Laboratory Results - last 24 hr 04/05/17 04/05/17 04/06/17 Range/Units 15:48 21:55 06:01 POC Glucose 238 H 338 H 122 H (60-110) mg/dL 04/06/17 Range/Units 12:32 POC Glucose 183 H (60-110) mg/dL Med Orders - Current: Current Medications Acetaminophen (Tylenol) 650 mg PO Q4H PRN PRN Reason: Pain (mild 1-3) Last Admin: 04/05/17 22:19 Dose: 650 mg Atorvastatin Calcium (Lipitor) 20 mg PO BEDTIME [facility] Last Admin: 04/05/17 21:13 Dose: 20 mg Folic Acid (Folic Acid) 1 mg PO BEDTIME [facility] Last Admin: 04/05/17 21:13 Dose: 1 mg Insulin Aspart (Novolog) 0 unit SUBCUT ACBED [facility] PRN Reason: Protocol Last Admin: 04/06/17 12:34 Dose: 1 unit Levothyroxine Sodium (Levothyroxine) 25 mcg PO ACBREAKFAST [facility] Last Admin: 04/06/17 06:47 Dose: 25 mcg Lisinopril (Prinivil) 20 mg PO BID [facility] Last Admin: 04/06/17 09:32 Dose: 20 mg Lorazepam (Ativan) 1 - 3 mg IVPUSH Q4H PRN; Protocol PRN Reason: Alcohol Withdrawal Last Admin: 04/04/17 19:37 Dose: 1 mg Morphine Sulfate (Morphine) 2 mg IVPUSH Q2H PRN PRN Reason: Pain (severe 7-10) Multivitamins/Minerals/Vitamin C (Tab-A-Karon) 1 tab PO BEDTIME [facility] Last Admin: 04/05/17 21:13 Dose: 1 tab Nicotine (Habitrol) 21 mg TRDERM DAILY [facility] Last Admin: 04/06/17 09:33 Dose: 21 mg Oxycodone HCl (Oxycodone) 5 mg PO Q4H PRN PRN Reason: Pain (moderate 4-6) Thiamine HCl (Vitamin B-1) 100 mg PO DAILY [facility] Last Admin: 04/06/17 09:33 Dose: 100 mg Discontinued Medications Enoxaparin Sodium (Lovenox) 40 mg SUBCUT DAILY [facility] Last Admin: 04/01/17 10:17 Dose: 40 mg Folic Acid (Folic Acid) 1 mg PO DAILY [facility] Last Admin: 03/31/17 09:03 Dose: 1 mg Sodium Chloride (Normal Saline) 1,000 mls @ 125 mls/hr IV ASDIRECTED [facility] Last Admin: 03/27/17 20:15 Dose: 125 mls/hr Thiamine HCl 100 mg/ Sodium (Chloride) 101 mls @ 202 mls/hr IV ONETIME ONE Stop: 03/27/17 19:45 Last Admin: 03/27/17 20:17 Dose: 202 mls/hr Thiamine HCl 100 mg/ Sodium (Chloride) 101 mls @ 202 mls/hr IV ONETIME ONE Stop: 03/27/17 20:44 Last Admin: 03/27/17 20:24 Dose: Not Given Multivitamins/Minerals 10 ml/ (Sodium Chloride) 1,010 mls @ 100 mls/hr IV ONETIME ONE Stop: 03/28/17 09:50 Last Admin: 03/28/17 00:59 Dose: 100 mls/hr Sodium Chloride (Normal Saline) 1,000 mls @ 100 mls/hr IV ASDIRECTED [facility] Last Admin: 04/01/17 12:40 Dose: 100 mls/hr Iopamidol (Isovue Multipack-370 (76%)) 50 ml IVPUSH ONETIME STA Stop: 03/29/17 12:08 Last Admin: 03/29/17 12:07 Dose: 50 ml Lisinopril (Prinivil) 10 mg PO DAILY [facility] Last Admin: 04/01/17 10:10 Dose: 10 mg Lisinopril (Prinivil) 10 mg PO BID [facility] Last Admin: 04/03/17 20:26 Dose: 10 mg Lisinopril (Prinivil) 10 mg PO DAILY [facility] Stop: 04/04/17 01:16 Last Admin: 04/04/17 01:22 Dose: 10 mg Thiamine HCl (Vitamin B-1) 100 mg PO BEDTIME [facility] Last Admin: 03/31/17 20:00 Dose: 100 mg - Exam General: Alert, Oriented Lungs: Clear to Auscultation, Normal Respiratory Effort Cardiovascular: Regular Rate, Regular Rhythm Extremities: No Pedal Edema Skin: Warm, Dry, Intact Neurological: No New Focal Deficit - Problem List Review Problem List Initiated/Reviewed/Updated: Yes - My Orders Last 24 Hours: My Active Orders 04/06/17 12:45 Consult to Physician [CONS] Routine 04/06/17 12:46 Notify Provider Consults [RC] ASDIRECTED - Plan Plan:: 71 yo male with pmh of ETOH abuse who presents with altered mental status and generalized weakness. Patient's encephalopathy likely related to alcohol use. His strength and mentation has been gradually improving. We will continue physical therapy. Patient will likely need swing bed or skill nursing facility placement. Case management is working on placement.
--- NOTE | 2017-04-06 16:03 | PCM.CONS ---
H&P History of Present Illness - General Date of Service: 04/06/17 Admit Problem/Dx: Admission Diagnosis/Problem Admission Diagnosis/Problem Dementia without behavioral disturbance - History of Present Illness Initial Comments - Free Text/Narative: This is a 71-year-old man admitted with altered mental status and ataxia. History obtained from patient, patient's chart and his daughter Maria Esther He states that the reason that he is in the hospital is because he had pain in his right foot. He denies problems with headache, weakness, numbness, unsteady gait. His daughter Maria Esther notes that he started having decline in his memory about 2 years ago. It has been progressively worsening, more severe in the last 2 months. She used to have to remind him to take his medications, but then she had to be present to make sure he took him. He hasn't been able to cook, clean, do his laundry in the last 2 months. He may have some mild changes in his walking, but there was a fairly sudden change in his balance about a month ago. He was leaning to the right, bumping into the wall. He was brought to the emergency department on March 27 with unsteady gait. He also been complaining of a right-sided frontal and posterior headache. He was also noted to have altered mental status consistent with delirium. He was started on thiamine. CT head completed on March 27 demonstrated atrophy, white matter changes consistent with small vessel disease. Workup included carotid ultrasound March 31, which showed 60% stenosis of the proximal left ICA. Approximate 40% stenosis noted of proximal right ICA. Labs-lipids March 31, 2017-cholesterol 204, LDL 127, TSH 5.4, triglycerides 195. Urinalysis March 27 negative for infection. Hemoglobin A1c March 28 - 6.6, TSH March 27 4.93 SH: He report drinking 12 pack per week, prior pint hard alcohol. His daughter notes history of heavy ETOH use, less recently. She has seen him intoxicated maybe twice in the last couple months. Headache Pain Score (Numeric/FACES): 0 - Related Data Allergies/Adverse Reactions: Allergies Allergy/AdvReac Type Severity Reaction Status Date / Time No Known Allergies Allergy Verified 03/27/17 19:27 Home Medications: Home Meds Folic Acid 1 mg PO BEDTIME #30 tablet 02/09/17 [Rx] Thiamine [Vitamin B-1] 100 mg PO BEDTIME #30 tablet 02/09/17 [Rx] Levothyroxine 25 mcg PO DAILY 03/27/17 [History] Lisinopril [Prinivil] 10 mg PO DAILY 03/27/17 [History] Past Medical History HEENT History: Reports: None Cardiovascular History: Reports: Hypertension, Pacemaker Other Cardiovascular History: bradycardia Respiratory History: Reports: Other (See Below) Other Respiratory History: smoker Gastrointestinal History: Reports: GERD Genitourinary History: Reports: None Musculoskeletal History: Reports: None Neurological History: Reports: Other (See Below) (Alcohol-related dementia) Psychiatric History: Reports: None Endocrine/Metabolic History: Reports: Diabetes, Type II Hematologic History: Reports: None Oncologic (Cancer) History: Reports: None Dermatologic History: Reports: None - Infectious Disease History Infectious Disease History: Reports: None - Past Surgical History Male Surgical History: Reports: None Social & Family History - Family History Family Medical History: Noncontributory - Tobacco Use Smoking Status *Q: Current Every Day Smoker Years of Tobacco use: 30 Packs/Tins Daily: 1.5 Used Tobacco, but Quit: No Second Hand Smoke Exposure: Yes - Caffeine Use Caffeine Use: Reports: Coffee - Alcohol Use Number of Drinks Per Day: 6 Date of Last Drink: 03/25/17 - Recreational Drug Use Recreational Drug Use: No Drug Use in Last 12 Months: Yes Recreational Drug Type: Reports: Marijuana/Hashish Recreational Drug Use Frequency: Binges H&P Review of Systems - Review of Systems: Review Of Systems: ROS reveals no pertinent complaints other than HPI. Exam - Exam Exam: See Below - Vital Signs Vital Signs: Last Vital Signs Temp 36.3 C 04/06/17 13:29 Pulse 65 04/06/17 13:29 Resp 16 04/06/17 13:29 BP 153/78 H 04/06/17 13:29 Pulse Ox 99 04/06/17 13:29 Weight: 69.5 kg - Exam Physical Exam Comments:: Constitutional: No acute distress, thin appearing Psychiatric: Mood/Affect: fine/flat Neurological: Mental Status: MMSE + 13/30, he refused to write a sentence, perform serial 7s, so score may be underestimate. Level of consciousness: Awake, alert. Orientation: Oriented to person, place. Correct month and season, 1971 , incorrect day of week and date. Concentration/Attention Span: Spell WORLD forward correctly. Cant spell it backward, refuses to try. Comprehension/Praxis: Able to perform a three step command. Fund of Knowledge/memory: Registration 3/3, recall 0/3 Language: Fluent and articulate without evidence of aphasia or dysarthria. Naming and repetition intact Insight/Judgement: Impaired Cranial Nerves: Pupils equally round and reactive to light. Visual blank full to confrontation. Gaze conjugate, EOM full, bilateral end gaze nystagmus and saccadic smooth pursuits.. Sensation intact and symmetric to light touch. Facial strength is full and symmetric. Palate elevates symmetrically. Normal shrug bilaterally. Tongue protrudes midline Motor: Normal tone in all groups. No drift. Power is 5/5 throughout proximal and distal muscles. Sensation: Sensation is decreased to temp in the feet. Intact vibratory sense Deep tendon reflexes: Brisk throughout. Plantar responses are flexor bilaterally. Coordination: Finger to nose notable for mild, kinetic, low amplitude high frequency tremor, heel to perez is dysmetric, worse with left lower limb. Gait: Wide based with walker. Severely ataxic when standing without assist. HEENT: Eyes: conjuctival injection, bilateral periorbital edema Mouth: moist mucus membranes Cardiovascular: RRR, no obvious murmur Respiratory: clear lungs GI: non tender Musculoskeletal: non tender Skin: no visible rash - Patient Data Lab Results Last 24 hrs: Laboratory Results - last 24 hr 04/05/17 04/05/17 04/06/17 Range/Units 15:48 21:55 06:01 POC Glucose 238 H 338 H 122 H (60-110) mg/dL 04/06/17 Range/Units 12:32 POC Glucose 183 H (60-110) mg/dL Result Diagrams: 04/02/17 14:23 04/03/17 04:58 Consult PN Assessment/Plan Procedures: Procedures ASSAY OF AMMONIA (02/07/17) ASSAY OF AMYLASE (02/07/17) ASSAY OF LIPASE (02/07/17) ASSAY OF MAGNESIUM (02/07/17) ASSAY OF PHOSPHORUS (02/07/17) ASSAY OF TROPONIN QUANT (02/20/17) COMPLETE CBC W/AUTO DIFF WBC (02/20/17) COMPREHEN METABOLIC PANEL (02/20/17) CT ABD & PELV W/CONTRAST (02/07/17) CT ANGIO ABDOM W/O & W/DYE (01/19/15) CT HEAD/BRAIN W/O DYE (02/20/17) ELECTROCARDIOGRAM TRACING (02/20/17) EMERGENCY DEPT VISIT (02/20/17) GLUCOSE BLOOD TEST (02/07/17) HYDRATE IV INFUSION ADD-ON (02/07/17) METABOLIC PANEL TOTAL CA (02/07/17) PROTHROMBIN TIME (02/07/17) PT EVAL LOW COMPLEX 20 MIN (02/07/17) ROUTINE VENIPUNCTURE (02/07/17) TEST FOR ACETONE/KETONES (02/07/17) THER/PROPH/DIAG INJ IV PUSH (02/07/17) THER/PROPH/DIAG INJ SC/IM (02/07/17) THER/PROPH/DIAG IV INF ADDON (02/20/17) THER/PROPH/DIAG IV INF INIT (02/20/17) THERAPEUTIC ACTIVITIES (02/07/17) THROMBOPLASTIN TIME PARTIAL (01/19/15) TX/PRO/DX INJ NEW DRUG ADDON (02/07/17) TX/PRO/DX INJ SAME DRUG CREW CLERK (02/07/17) URINALYSIS AUTO W/SCOPE (02/07/17) X-RAY EXAM UNILAT RIBS/CHEST (02/07/17) (1) Altered mental status SNOMED Code(s): 893828759 Code(s): R41.82 - ALTERED MENTAL STATUS, UNSPECIFIED Priority: High Current Visit: Yes Qualifiers: Altered mental status type: transient alteration of awareness Qualified Code(s): R40.4 - Transient alteration of awareness Assessment:: This is a 71-year-old man with a history of alcohol abuse, two-year history of progressive cognitive decline, 1-2 month history of ataxia. Examination is notable for MMSE of 13 which may be underestimated given poor cooperation. Exam is also notable for bilateral lower limb and gait ataxia, nystagmus without other focal deficits suggestive of cerebellar dysfunction. These findings can be seen with Wernicke-Korsakoff/thiamine deficiency. His daughter notes fairly sudden change in gait which does bring up the possibility of ischemia, but this was not evident on CT scan, and MRI cannot be obtained. Also , he has bilateral lower limb ataxia which argues in favor of Wernicke- Korsakoff over cerebral ischemia. Of note, he has undergone workup including carotid ultrasound and echocardiogram. In terms of the ataxia, I recommend continued thiamine supplementation. I would also add on a B12 level. I agree with physical therapy. Of note, given the carotid stenosis, I believe he should be on antiplatelet therapy, aspirin 81 mg if no contraindication. He is already on a statin In terms of his cognition, believe that this is multifactorial dementia, likely neurodegenerative e.g. Alzheimers (positive family history) and ETOH related dementia with superimposed delrium that has improved during hospitalization, and he is likely at or near baseline. Again, I would check a B12 level. In terms of function, I do not believe he is able to safely live independently. He has a very high risk for falls due to his ataxia, and has poor insight. He had significant cognitive impairment, limiting his ability to function independently prior to this admission, now this issue is exacerbated by ataxia. Problem List Initiated/Reviewed/Updated: Yes
[2017-04-06] MEDS: Aspirin 81 MG Tab.Chew PO SCH (18:44)
[2017-04-06] MEDS: Multivitamin Tab PO SCH (20:05)
[2017-04-06] MEDS: Folic Acid 1 MG Tab PO SCH (20:05)
[2017-04-06] MEDS: atorvaSTATin 20 MG Tab PO SCH (20:05)
[2017-04-06] MEDS: LORazepam 2 MG/ML MDV IVPUSH PRN (20:58)
[2017-04-07] MEDS: Acetaminophen 325 MG Tab PO PRN (06:36)
[2017-04-07] MEDS: Levothyroxine 25 MCG Tab PO SCH (06:39)
[2017-04-07] MEDS: Insulin Aspart 100 Units/ML 3 ML Pen SUBCUT SCH ×4 (06:40→20:50)
[2017-04-07] MEDS: Nicotine 21 MG/24 Hr Patch TRDERM SCH (08:18)
[2017-04-07] MEDS: Lisinopril 10 MG Tab PO SCH ×2 (08:19→20:45)
[2017-04-07] MEDS: Thiamine 100 MG Tab PO SCH (08:19)
[2017-04-07] MEDS: Aspirin 81 MG Tab.Chew PO SCH (08:19)
--- NOTE | 2017-04-07 12:03 | PCM.PN ---
- Review of Systems Systems Review Comment:: no new complaints - Patient Data Vitals - Most Recent: Last Vital Signs Temp 36.6 C 04/07/17 08:00 Pulse 68 04/07/17 08:00 Resp 18 04/07/17 08:00 BP 121/76 04/07/17 08:19 Pulse Ox 96 04/07/17 08:00 Weight - Most Recent: 69.5 kg I&O - Last 24 Hours: Intake & Output 04/06/17 04/07/17 04/07/17 22:59 06:59 14:59 Intake Total 900 250 Output Total 650 650 Balance 250 -400 Lab Results Last 24 Hours: Laboratory Results - last 24 hr 04/06/17 04/06/17 04/06/17 Range/Units 12:32 16:24 20:16 POC Glucose 183 H 136 H 152 H (60-110) mg/dL Med Orders - Current: Current Medications Acetaminophen (Tylenol) 650 mg PO Q4H PRN PRN Reason: Pain (mild 1-3) Last Admin: 04/07/17 06:36 Dose: 650 mg Aspirin (Aspirin) 81 mg PO DAILY [facility] Last Admin: 04/07/17 08:19 Dose: 81 mg Atorvastatin Calcium (Lipitor) 20 mg PO BEDTIME [facility] Last Admin: 04/06/17 20:05 Dose: 20 mg Folic Acid (Folic Acid) 1 mg PO BEDTIME [facility] Last Admin: 04/06/17 20:05 Dose: 1 mg Insulin Aspart (Novolog) 0 unit SUBCUT ACBED [facility] PRN Reason: Protocol Last Admin: 04/07/17 06:40 Dose: Not Given Levothyroxine Sodium (Levothyroxine) 25 mcg PO ACBREAKFAST [facility] Last Admin: 04/07/17 06:39 Dose: 25 mcg Lisinopril (Prinivil) 20 mg PO BID [facility] Last Admin: 04/07/17 08:19 Dose: 20 mg Lorazepam (Ativan) 1 - 3 mg IVPUSH Q4H PRN; Protocol PRN Reason: Alcohol Withdrawal Last Admin: 04/06/17 20:58 Dose: 1 mg Morphine Sulfate (Morphine) 2 mg IVPUSH Q2H PRN PRN Reason: Pain (severe 7-10) Multivitamins/Minerals/Vitamin C (Tab-A-Karon) 1 tab PO BEDTIME [facility] Last Admin: 04/06/17 20:05 Dose: 1 tab Nicotine (Habitrol) 21 mg TRDERM DAILY [facility] Last Admin: 04/07/17 08:18 Dose: 21 mg Oxycodone HCl (Oxycodone) 5 mg PO Q4H PRN PRN Reason: Pain (moderate 4-6) Thiamine HCl (Vitamin B-1) 100 mg PO DAILY [facility] Last Admin: 04/07/17 08:19 Dose: 100 mg Discontinued Medications Enoxaparin Sodium (Lovenox) 40 mg SUBCUT DAILY [facility] Last Admin: 04/01/17 10:17 Dose: 40 mg Folic Acid (Folic Acid) 1 mg PO DAILY [facility] Last Admin: 03/31/17 09:03 Dose: 1 mg Sodium Chloride (Normal Saline) 1,000 mls @ 125 mls/hr IV ASDIRECTED [facility] Last Admin: 03/27/17 20:15 Dose: 125 mls/hr Thiamine HCl 100 mg/ Sodium (Chloride) 101 mls @ 202 mls/hr IV ONETIME ONE Stop: 03/27/17 19:45 Last Admin: 03/27/17 20:17 Dose: 202 mls/hr Thiamine HCl 100 mg/ Sodium (Chloride) 101 mls @ 202 mls/hr IV ONETIME ONE Stop: 03/27/17 20:44 Last Admin: 03/27/17 20:24 Dose: Not Given Multivitamins/Minerals 10 ml/ (Sodium Chloride) 1,010 mls @ 100 mls/hr IV ONETIME ONE Stop: 03/28/17 09:50 Last Admin: 03/28/17 00:59 Dose: 100 mls/hr Sodium Chloride (Normal Saline) 1,000 mls @ 100 mls/hr IV ASDIRECTED [facility] Last Admin: 04/01/17 12:40 Dose: 100 mls/hr Iopamidol (Isovue Multipack-370 (76%)) 50 ml IVPUSH ONETIME STA Stop: 03/29/17 12:08 Last Admin: 03/29/17 12:07 Dose: 50 ml Lisinopril (Prinivil) 10 mg PO DAILY [facility] Last Admin: 04/01/17 10:10 Dose: 10 mg Lisinopril (Prinivil) 10 mg PO BID [facility] Last Admin: 04/03/17 20:26 Dose: 10 mg Lisinopril (Prinivil) 10 mg PO DAILY [facility] Stop: 04/04/17 01:16 Last Admin: 04/04/17 01:22 Dose: 10 mg Thiamine HCl (Vitamin B-1) 100 mg PO BEDTIME [facility] Last Admin: 03/31/17 20:00 Dose: 100 mg - Exam General: Alert, Cooperative Lungs: Clear to Auscultation, Normal Respiratory Effort Cardiovascular: Regular Rate, Regular Rhythm GI/Abdominal Exam: Soft, Non-Tender, No Distention Extremities: Normal Inspection, Non-Tender, No Pedal Edema - Problem List Review Problem List Initiated/Reviewed/Updated: Yes - My Orders Last 24 Hours: My Active Orders 04/06/17 12:45 Consult to Physician [CONS] Routine 04/06/17 12:46 Notify Provider Consults [RC] ASDIRECTED 04/06/17 18:00 Aspirin 81 mg PO DAILY 04/07/17 11:56 VITAMIN B12 [CHEM] Routine - Plan Plan:: 71 yo male with pmh of ETOH abuse who presents with altered mental status and generalized weakness. Psychiatry and neurology have been consulted. Patient's mentation and ataxia likely mutlifactorial from alcohol abuse and Alzheimer's. He is likely close to his baseline and stable from a neuropsych standpoint. He is cooperative with nurses but his lack of insight and ataxia would require placement at fdc facility or swing bed.
--- NOTE | 2017-04-07 14:42 | CONS ---
DATE OF CONSULTATION: 04/07/2017 DATE OF : 1945 PRIMARY CARE PHYSICIAN: None PCP INDENTIFICATION: The patient is a 71-year-old male who is admitted to the inpatient medical unit at [facility] in [place], [place] and seen for psychiatric evaluation. CHIEF COMPLAINT: "The bottom of my foot was hurting and I want to see what was causing." HISTORY OF PRESENT ILLNESS: The patient is a 71-year-old male who was admitted to the [facility] in [place], [place] about 11 days ago for medical issues with alcohol as a possible complicating factor in his presentation. The patient has been managed for his medical issues as well as for a possible alcohol withdrawal symptoms. While on the unit as the staff has been monitoring him, he has been displaying quite a bit of poor mobility and he notices his left foot slides out under him when he tries to walk. Staff has also received some collateral information from patient's family and there is a concern about inability to care for himself prior to admission and certainly now they have had a chance to serve him on the unit and as he is medically stabilized, they are wanting to possibly transfer the patient to a transitional care setting or even swing bed unit, so he can further convalesce. On interview, the patient is denying any psychiatric issues. He states his mood is "not bad still pretty good" even despite all the medical complications he is dealing with. He reports good appetite, good sleep patterns and generally good energy levels. He denies any suicidal or homicidal. He denies any psychotic delusional or paranoid symptoms. He denies any illicit substance use or excessive alcohol as complicating his clinical picture. He does not feel any psychiatric attention at this point in time, but rather just needs to get better from a physical standpoint, so he can get discharge back to community. MEDICATIONS: Medications at the time of presentation: 1. Folic acid. 2. Thiamine. 3. Levothyroxine. 4. Antihypertensive. 5. Nicotine patch. 6. Ativan per [facility] protocol. ALLERGIES: No known drug allergies. PAST MEDICAL HISTORY: 1. Hypothyroidism. 2. History of hypertension. 3. The patient reports of type 2 diabetic condition. REVIEW OF SYSTEMS: Aside from endocrine and cardiovascular as well as neurologic, all other major organ systems are negative at this point time for acute difficulties and complications. FAMILY PSYCHIATRIC AND CD HISTORY: The patient denies. PAST PSYCHIATRIC AND CD HISTORY: The patient denies any previous psychiatric hospitalizations or chemical dependency treatments. He is a 1-1/2-pack a day smoker even up to 2 packs per day smoker per his report for the past 54 years. He states he will chew some tobacco too. He denies any previous suicide attempts, self-injurious behaviors, or eating disorder history. He denies any previous psychiatric medication history. SOCIAL HISTORY: The patient was born and raised in [place], [place], living in [place], [place] now. He was , but his and he is not able to articulate when his , but simply stating "It was back in the 70s." He has two daughters from the marriage, they live in that area. The patient worked as a general maintenance technician and he states he is living by himself in [place] right now. MENTAL STATUS EXAMINATION: The patient is a 71-year-old soft spoken white male, in no apparent distress. Speech is significant for increased latency of response, shortened duration of utterance. Psychomotor activities are within normal limits. There is no abnormal motor movements or tics observed. Gait and station are not observed. The patient is seated at the time of the interview. The patient is cognitively oriented x2 to person and to place. He knows the day of the week which is Sunday, but he thinks that the month is "December or January" and he thinks the is 1977. Mood is "good." Affect is cooperative overall for the purposes of the inpatient consult. There is no behavioral or stated evidence of acute suicidal or homicidal ideation or acute psychotic delusional or paranoid symptoms. Thought processes are significant for some possible thought blocking. There are no acute manic symptoms or loose associations evident. Judgment insight appear somewhat impaired secondary to the patient's poor cognition. Motivation for help appears fair. VITAL SIGNS: 121/76, 68, 18, and 36.6 degree Celsius. IMPRESSION: [place] I: 1. Alcohol abuse versus dependence. 2. Rule out dementia, NOS. 3. Rule out major depressive disorder. [place] II: None. [place] III: 1. Hypothyroidism. 2. Hypertension. 3. The patient reports of type 2 diabetes. 4. Proximal neurologic deficits of unknown etiology, but that may be alcohol related which is a proximal cerebellar ataxia per the staff of the patient's poor balance issues. [place] IV: Severe. [place] V: 50. PLAN: 1. No psychiatric medications appear to be required or recommended at this point in time. 2. Do have a recommend that given the patient's ongoing medical issues particularly with balance and also in light of his poor cognition that if he is medically stabilized in the upcoming days that he be transferred to a possible transitional care setting or swing bed unit for further convalescence and stabilization and where he can be given appropriate services to help him get back to a situation where he can fully care and manage himself on his day to day activities. 3. We will continue to follow up with the patient on an as-needed basis while the patient remains on the medical unit at [facility]. 4. We will follow up with the patient sooner if any complications in the interim. 5. Crisis plan is in place. MATTHEW / RAYO /[id number]
[2017-04-07] MEDS: Multivitamin Tab PO SCH (20:45)
[2017-04-07] MEDS: atorvaSTATin 20 MG Tab PO SCH (20:45)
[2017-04-07] MEDS: Folic Acid 1 MG Tab PO SCH (20:45)
[2017-04-08] MEDS: Levothyroxine 25 MCG Tab PO SCH (06:35)
[2017-04-08] MEDS: Insulin Aspart 100 Units/ML 3 ML Pen SUBCUT SCH ×4 (06:38→21:33)
[2017-04-08] MEDS: Thiamine 100 MG Tab PO SCH (09:05)
[2017-04-08] MEDS: Lisinopril 10 MG Tab PO SCH ×2 (09:05→21:29)
[2017-04-08] MEDS: Aspirin 81 MG Tab.Chew PO SCH (09:05)
[2017-04-08] MEDS: Nicotine 21 MG/24 Hr Patch TRDERM SCH (09:07)
--- NOTE | 2017-04-08 11:51 | PCM.PN ---
- Review of Systems Systems Review Comment:: no new complaints, using walker with nurse assist - Patient Data Vitals - Most Recent: Last Vital Signs Temp 36.1 C 04/08/17 08:00 Pulse 63 04/08/17 08:00 Resp 16 04/08/17 08:00 BP 155/84 H 04/08/17 09:05 Pulse Ox 98 04/08/17 08:00 Weight - Most Recent: 69.5 kg I&O - Last 24 Hours: Intake & Output 04/07/17 04/08/17 04/08/17 22:59 06:59 14:59 Intake Total 840 750 Output Total 675 330 Balance 165 420 Lab Results Last 24 Hours: Laboratory Results - last 24 hr 04/07/17 04/07/17 04/07/17 Range/Units 06:31 11:34 12:03 POC Glucose 109 202 H (60-110) mg/dL Vitamin B12 404 (200-1100) PG/ML 04/07/17 04/07/17 04/08/17 Range/Units 17:02 20:50 06:36 POC Glucose 161 H 105 97 (60-110) mg/dL Vitamin B12 (200-1100) PG/ML Med Orders - Current: Current Medications Acetaminophen (Tylenol) 650 mg PO Q4H PRN PRN Reason: Pain (mild 1-3) Last Admin: 04/07/17 06:36 Dose: 650 mg Aspirin (Aspirin) 81 mg PO DAILY [facility] Last Admin: 04/08/17 09:05 Dose: 81 mg Atorvastatin Calcium (Lipitor) 20 mg PO BEDTIME [facility] Last Admin: 04/07/17 20:45 Dose: 20 mg Folic Acid (Folic Acid) 1 mg PO BEDTIME [facility] Last Admin: 04/07/17 20:45 Dose: 1 mg Insulin Aspart (Novolog) 0 unit SUBCUT ACBED [facility] PRN Reason: Protocol Last Admin: 04/08/17 06:38 Dose: Not Given Levothyroxine Sodium (Levothyroxine) 25 mcg PO ACBREAKFAST [facility] Last Admin: 04/08/17 06:35 Dose: 25 mcg Lisinopril (Prinivil) 20 mg PO BID [facility] Last Admin: 04/08/17 09:05 Dose: 20 mg Lorazepam (Ativan) 1 - 3 mg IVPUSH Q4H PRN; Protocol PRN Reason: Alcohol Withdrawal Last Admin: 04/06/17 20:58 Dose: 1 mg Morphine Sulfate (Morphine) 2 mg IVPUSH Q2H PRN PRN Reason: Pain (severe 7-10) Multivitamins/Minerals/Vitamin C (Tab-A-Karon) 1 tab PO BEDTIME [facility] Last Admin: 04/07/17 20:45 Dose: 1 tab Nicotine (Habitrol) 21 mg TRDERM DAILY [facility] Last Admin: 04/08/17 09:07 Dose: 21 mg Oxycodone HCl (Oxycodone) 5 mg PO Q4H PRN PRN Reason: Pain (moderate 4-6) Thiamine HCl (Vitamin B-1) 100 mg PO DAILY [facility] Last Admin: 04/08/17 09:05 Dose: 100 mg Discontinued Medications Enoxaparin Sodium (Lovenox) 40 mg SUBCUT DAILY [facility] Last Admin: 04/01/17 10:17 Dose: 40 mg Folic Acid (Folic Acid) 1 mg PO DAILY [facility] Last Admin: 03/31/17 09:03 Dose: 1 mg Sodium Chloride (Normal Saline) 1,000 mls @ 125 mls/hr IV ASDIRECTED [facility] Last Admin: 03/27/17 20:15 Dose: 125 mls/hr Thiamine HCl 100 mg/ Sodium (Chloride) 101 mls @ 202 mls/hr IV ONETIME ONE Stop: 03/27/17 19:45 Last Admin: 03/27/17 20:17 Dose: 202 mls/hr Thiamine HCl 100 mg/ Sodium (Chloride) 101 mls @ 202 mls/hr IV ONETIME ONE Stop: 03/27/17 20:44 Last Admin: 03/27/17 20:24 Dose: Not Given Multivitamins/Minerals 10 ml/ (Sodium Chloride) 1,010 mls @ 100 mls/hr IV ONETIME ONE Stop: 03/28/17 09:50 Last Admin: 03/28/17 00:59 Dose: 100 mls/hr Sodium Chloride (Normal Saline) 1,000 mls @ 100 mls/hr IV ASDIRECTED [facility] Last Admin: 04/01/17 12:40 Dose: 100 mls/hr Iopamidol (Isovue Multipack-370 (76%)) 50 ml IVPUSH ONETIME STA Stop: 03/29/17 12:08 Last Admin: 03/29/17 12:07 Dose: 50 ml Lisinopril (Prinivil) 10 mg PO DAILY [facility] Last Admin: 04/01/17 10:10 Dose: 10 mg Lisinopril (Prinivil) 10 mg PO BID [facility] Last Admin: 04/03/17 20:26 Dose: 10 mg Lisinopril (Prinivil) 10 mg PO DAILY [facility] Stop: 04/04/17 01:16 Last Admin: 04/04/17 01:22 Dose: 10 mg Thiamine HCl (Vitamin B-1) 100 mg PO BEDTIME [facility] Last Admin: 03/31/17 20:00 Dose: 100 mg - Exam General: Cooperative, No Acute Distress Lungs: Clear to Auscultation, Normal Respiratory Effort Cardiovascular: Regular Rate, Regular Rhythm GI/Abdominal Exam: No Distention Extremities: No Pedal Edema Skin: Warm, Dry, Intact Neurological: No New Focal Deficit - Problem List Review Problem List Initiated/Reviewed/Updated: Yes - Plan Plan:: 71 yo male with pmh of ETOH abuse who presents with dementia and alcohol abuse. Discharge pending placement.
[2017-04-08] MEDS: Folic Acid 1 MG Tab PO SCH (21:28)
[2017-04-08] MEDS: atorvaSTATin 20 MG Tab PO SCH (21:28)
[2017-04-08] MEDS: Multivitamin Tab PO SCH (21:28)
[2017-04-09] MEDS: Insulin Aspart 100 Units/ML 3 ML Pen SUBCUT SCH ×4 (06:45→21:06)
[2017-04-09] MEDS: Levothyroxine 25 MCG Tab PO SCH (06:46)
[2017-04-09] MEDS: Thiamine 100 MG Tab PO SCH (08:04)
[2017-04-09] MEDS: Aspirin 81 MG Tab.Chew PO SCH (08:04)
[2017-04-09] MEDS: Lisinopril 10 MG Tab PO SCH ×2 (08:05→21:05)
[2017-04-09] MEDS: Nicotine 21 MG/24 Hr Patch TRDERM SCH (08:06)
--- NOTE | 2017-04-09 08:41 | PCM.PN ---
- General Info Date of Service: 04/09/17 Admission Dx/Problem (Free Text): Admission Diagnosis/Problem Admission Diagnosis/Problem Dementia without behavioral disturbance Subjective Update: Reports he is doing ok today, reports he has been up walking some with FWW and nursing staff. No other complaints today. Is ok with awaiting placement for rehabilitation. Functional Status: Reports: Pain Controlled, Tolerating Diet, Ambulating, Urinating - Review of Systems HEENT: Reports: No Symptoms. Denies: Headaches, Sinus Congestion Pulmonary: Reports: No Symptoms. Denies: Shortness of Breath, Cough, Sputum Cardiovascular: Reports: No Symptoms. Denies: Chest Pain, Palpitations, Edema Gastrointestinal: Reports: No Symptoms. Denies: Abdominal Pain, Nausea, Vomiting Genitourinary: Reports: No Symptoms Skin: Reports: No Symptoms Neurological: Reports: No Symptoms Psychiatric: Reports: No Symptoms - Patient Data Vitals - Most Recent: Last Vital Signs Temp 97.6 F 04/09/17 07:32 Pulse 64 04/09/17 07:32 Resp 16 04/09/17 07:32 BP 133/76 04/09/17 08:05 Pulse Ox 98 04/09/17 07:32 Weight - Most Recent: 69.5 kg I&O - Last 24 Hours: Intake & Output 04/08/17 04/09/17 04/09/17 22:59 06:59 14:59 Intake Total 540 540 Output Total 800 500 Balance -260 40 Lab Results Last 24 Hours: Laboratory Results - last 24 hr 04/08/17 04/08/17 04/08/17 Range/Units 06:36 12:07 17:22 POC Glucose 97 94 147 H (60-110) mg/dL 04/08/17 04/09/17 Range/Units 21:27 06:43 POC Glucose 232 H 117 H (60-110) mg/dL Med Orders - Current: Current Medications Acetaminophen (Tylenol) 650 mg PO Q4H PRN PRN Reason: Pain (mild 1-3) Last Admin: 04/07/17 06:36 Dose: 650 mg Aspirin (Aspirin) 81 mg PO DAILY [facility] Last Admin: 04/09/17 08:04 Dose: 81 mg Atorvastatin Calcium (Lipitor) 20 mg PO BEDTIME [facility] Last Admin: 04/08/17 21:28 Dose: 20 mg Folic Acid (Folic Acid) 1 mg PO BEDTIME [facility] Last Admin: 04/08/17 21:28 Dose: 1 mg Insulin Aspart (Novolog) 0 unit SUBCUT ACBED [facility] PRN Reason: Protocol Last Admin: 04/09/17 06:45 Dose: Not Given Levothyroxine Sodium (Levothyroxine) 25 mcg PO ACBREAKFAST [facility] Last Admin: 04/09/17 06:46 Dose: 25 mcg Lisinopril (Prinivil) 20 mg PO BID [facility] Last Admin: 04/09/17 08:05 Dose: 20 mg Lorazepam (Ativan) 1 - 3 mg IVPUSH Q4H PRN; Protocol PRN Reason: Alcohol Withdrawal Last Admin: 04/06/17 20:58 Dose: 1 mg Morphine Sulfate (Morphine) 2 mg IVPUSH Q2H PRN PRN Reason: Pain (severe 7-10) Multivitamins/Minerals/Vitamin C (Tab-A-Karon) 1 tab PO BEDTIME [facility] Last Admin: 04/08/17 21:28 Dose: 1 tab Nicotine (Habitrol) 21 mg TRDERM DAILY [facility] Last Admin: 04/09/17 08:06 Dose: Not Given Oxycodone HCl (Oxycodone) 5 mg PO Q4H PRN PRN Reason: Pain (moderate 4-6) Thiamine HCl (Vitamin B-1) 100 mg PO DAILY [facility] Last Admin: 04/09/17 08:04 Dose: 100 mg Discontinued Medications Enoxaparin Sodium (Lovenox) 40 mg SUBCUT DAILY [facility] Last Admin: 04/01/17 10:17 Dose: 40 mg Folic Acid (Folic Acid) 1 mg PO DAILY [facility] Last Admin: 03/31/17 09:03 Dose: 1 mg Sodium Chloride (Normal Saline) 1,000 mls @ 125 mls/hr IV ASDIRECTED [facility] Last Admin: 03/27/17 20:15 Dose: 125 mls/hr Thiamine HCl 100 mg/ Sodium (Chloride) 101 mls @ 202 mls/hr IV ONETIME ONE Stop: 03/27/17 19:45 Last Admin: 03/27/17 20:17 Dose: 202 mls/hr Thiamine HCl 100 mg/ Sodium (Chloride) 101 mls @ 202 mls/hr IV ONETIME ONE Stop: 03/27/17 20:44 Last Admin: 03/27/17 20:24 Dose: Not Given Multivitamins/Minerals 10 ml/ (Sodium Chloride) 1,010 mls @ 100 mls/hr IV ONETIME ONE Stop: 03/28/17 09:50 Last Admin: 03/28/17 00:59 Dose: 100 mls/hr Sodium Chloride (Normal Saline) 1,000 mls @ 100 mls/hr IV ASDIRECTED [facility] Last Admin: 04/01/17 12:40 Dose: 100 mls/hr Iopamidol (Isovue Multipack-370 (76%)) 50 ml IVPUSH ONETIME STA Stop: 03/29/17 12:08 Last Admin: 03/29/17 12:07 Dose: 50 ml Lisinopril (Prinivil) 10 mg PO DAILY [facility] Last Admin: 04/01/17 10:10 Dose: 10 mg Lisinopril (Prinivil) 10 mg PO BID [facility] Last Admin: 04/03/17 20:26 Dose: 10 mg Lisinopril (Prinivil) 10 mg PO DAILY [facility] Stop: 04/04/17 01:16 Last Admin: 04/04/17 01:22 Dose: 10 mg Thiamine HCl (Vitamin B-1) 100 mg PO BEDTIME [facility] Last Admin: 03/31/17 20:00 Dose: 100 mg - Exam General: Alert. No: Oriented (disoriented to time) Neck: Supple Lungs: Clear to Auscultation, Normal Respiratory Effort Cardiovascular: Regular Rate, Regular Rhythm, No Murmurs Extremities: Normal Inspection, Normal Range of Motion, Non-Tender, No Pedal Edema, Normal Capillary Refill Neurological: No New Focal Deficit, Other (Ataxia continues) Psy/Mental Status: Alert, Normal Affect, Normal Mood - Problem List & Annotations (1) Dementia SNOMED Code(s): 68818392 Code(s): F03.90 - UNSPECIFIED DEMENTIA WITHOUT BEHAVIORAL DISTURBANCE Status: Chronic Current Visit: Yes Qualifiers: Dementia type: Alzheimer's disease Dementia behavioral disturbance: without behavioral disturbance (2) Gait disturbance SNOMED Code(s): 47753536 Code(s): R26.9 - UNSPECIFIED ABNORMALITIES OF GAIT AND MOBILITY Status: Chronic Priority: High Current Visit: Yes (3) Weakness SNOMED Code(s): 74252102 Code(s): R53.1 - WEAKNESS Status: Acute Current Visit: Yes (4) HTN (hypertension) SNOMED Code(s): 04187286 Code(s): I10 - ESSENTIAL (PRIMARY) HYPERTENSION Status: Chronic Current Visit: Yes Qualifiers: Hypertension type: essential hypertension Qualified Code(s): I10 - Essential (primary) hypertension (5) Dyslipidemia SNOMED Code(s): 545578846 Code(s): E78.5 - HYPERLIPIDEMIA, UNSPECIFIED Status: Chronic Current Visit: Yes (6) Alcohol use disorder SNOMED Code(s): 42928095, 99782510 Code(s): F10.99 - ALCOHOL USE, UNSP WITH UNSPECIFIED ALCOHOL-INDUCED DISORDER Status: Chronic Priority: High Current Visit: Yes (7) Cachexia SNOMED Code(s): 629343838 Code(s): R64 - CACHEXIA Status: Chronic Priority: High Current Visit: Yes - Problem List Review Problem List Initiated/Reviewed/Updated: Yes - Plan Plan:: 71 yo male with pmh of ETOH abuse who presents with dementia and alcohol abuse. 1. Dementia: Multifactorial. Needing placement due to inability for self care at home. 2. Hx alcohol abuse: Continue Folic acid and thiamine supplementation. Continue PT for ataxia. CIWAA discontinued, has not needed Ativan for several days. 3. Dyslipidemia: Atorvastatin and ASA. VTE prophylaxis:SCDs Dispo: Pending placement.
--- NOTE | 2017-04-09 19:31 | ECHO ---
The echocardiogram report can be seen in this patient's EMR (electronic medical record) in the Reports section. The report has also been scanned into PACS and can be seen there. BLANCHE
[2017-04-09] MEDS: Multivitamin Tab PO SCH (21:02)
[2017-04-09] MEDS: atorvaSTATin 20 MG Tab PO SCH (21:02)
[2017-04-09] MEDS: Folic Acid 1 MG Tab PO SCH (21:02)
[2017-04-10] MEDS: Levothyroxine 25 MCG Tab PO SCH (06:51)
[2017-04-10] MEDS: Insulin Aspart 100 Units/ML 3 ML Pen SUBCUT SCH ×2 (06:51→11:34)
[2017-04-10] MEDS ORDERED: Pneumococcal Polyvalent-23 Vaccine 0.5 ML SDV IM ONE (07:44)
--- NOTE | 2017-04-10 07:44 | PCM.DCSUM1 ---
Discharge Summary - Hospital Course Brief History: This 71 year old male with pmh of HTN, pacemaker, GERD, DM type 2 and alcohol abuse presented to the ED with family for concerns of worsening AMS and gait instability. Head CT completed which revelaed atrophy and white matter changes consistent with small vessel disease. - Discharge Data Discharge Date: 04/10/17 Discharge Disposition: DC/Tfer to SNF 03 Condition: Good - Discharge Diagnosis/Problem(s) (1) Dementia SNOMED Code(s): 80295920 ICD Code: F03.90 - UNSPECIFIED DEMENTIA WITHOUT BEHAVIORAL DISTURBANCE Status: Chronic Qualifiers: Dementia type: Alzheimer's disease Dementia behavioral disturbance: without behavioral disturbance (2) Gait disturbance SNOMED Code(s): 63154420 ICD Code: R26.9 - UNSPECIFIED ABNORMALITIES OF GAIT AND MOBILITY Status: Chronic Priority: High (3) Weakness SNOMED Code(s): 52843761 ICD Code: R53.1 - WEAKNESS Status: Acute (4) HTN (hypertension) SNOMED Code(s): 07043134 ICD Code: I10 - ESSENTIAL (PRIMARY) HYPERTENSION Status: Chronic Qualifiers: Hypertension type: essential hypertension Qualified Code(s): I10 - Essential (primary) hypertension (5) Dyslipidemia SNOMED Code(s): 851724111 ICD Code: E78.5 - HYPERLIPIDEMIA, UNSPECIFIED Status: Chronic (6) Alcohol use disorder SNOMED Code(s): 91403495, 57724409 ICD Code: F10.99 - ALCOHOL USE, UNSP WITH UNSPECIFIED ALCOHOL-INDUCED DISORDER Status: Chronic Priority: High (7) Cachexia SNOMED Code(s): 249399761 ICD Code: R64 - CACHEXIA Status: Chronic Priority: High (8) DM type 2 (diabetes mellitus, type 2) SNOMED Code(s): 58583640 ICD Code: E11.9 - TYPE 2 DIABETES MELLITUS WITHOUT COMPLICATIONS Status: Acute Qualifiers: Diabetes mellitus complication status: without complication Diabetes mellitus penitentiary insulin use: without intermission coordinator use Qualified Code(s): E11.9 - Type 2 diabetes mellitus without complications - Patient Summary/Data Consults: Consultations 03/30/17 16:03 Consult to Occupational Therapy [OT Evaluation and Treatment] [CONS] Routine 04/06/17 12:45 Consult to Physician [CONS] Routine - Patient Instructions Diet: Heart Healthy Diet, Diabetic Diet Activity: As Tolerated Showering/Bathing: May Shower Notify Provider of: Fever, Increased Pain, Swelling and Redness, Drainage, Nausea and/or Vomiting Other/Special Instructions: PT/OT to evaluate and treat. Blood sugar checks in am and PRN - Discharge Plan Prescriptions/Med Rec: Aspirin 81 mg PO DAILY #30 tab.chew atorvaSTATin [Lipitor] 20 mg PO BEDTIME #30 tablet Lisinopril [Prinivil] 20 mg PO BID #60 tablet metFORMIN [Glucophage] 500 mg PO BIDMEALS #60 tablet Nicotine [Habitrol] 21 mg TRDERM DAILY #30 patch Home Medications: Home Meds Folic Acid 1 mg PO BEDTIME #30 tablet 02/09/17 [Rx] Thiamine [Vitamin B-1] 100 mg PO BEDTIME #30 tablet 02/09/17 [Rx] Levothyroxine 25 mcg PO DAILY 03/27/17 [History] Acetaminophen [Tylenol] 650 mg PO Q4H PRN tablet 04/09/17 [Rx] Aspirin 81 mg PO DAILY #30 tab.chew 04/09/17 [Rx] Lisinopril [Prinivil] 20 mg PO BID #60 tablet 04/09/17 [Rx] Multivitamins [Tab-A-Karon] 1 tab PO BEDTIME tablet 04/09/17 [Rx] Nicotine [Habitrol] 21 mg TRDERM DAILY #30 patch 04/09/17 [Rx] atorvaSTATin [Lipitor] 20 mg PO BEDTIME #30 tablet 04/09/17 [Rx] metFORMIN [Glucophage] 500 mg PO BIDMEALS #60 tablet 04/09/17 [Rx] Patient Handouts: Alcohol Use Disorder, Weakness, [id number], Hypertension, [id number], Atorvastatin tablets, Lisinopril tablets, Metformin tablets, Aspirin, ASA oral tablets, Dementia, Nicotine skin patches - Discharge Summary/Plan Comment DC Time >30 min.: No Discharge Summary/Plan Comment: Discharge Diagnoses: Multifactorial dementia- likely Alzheimer's with combination of ETOh abuse, thiamine deficiency Gait instability, ataxia HTN Pacemaker DM type 2 Hx alcohol abuse Wilmer was admitted with AMS and worsening gait. During his stay he was noted to have some delirium and possible alcohol withdrawl. He was treated with CIWAA protocol and Ativan. He has not received this in three-four days before discharge. Questionable CVA, but unable to obtain MRI due to non-compatible pacemaker. Carotid US revealed 60% stenosis of proximal left ICA and approximately 40% stenosis of proximal right ICA. Lipid panel obtained, LDL 127 , he was started on Atorvastatin at that point. A1c 6.6, TSH 4.93. He was evaluated by Dr. Moreno, Neurology regarding potential CVA vs dementia vs Wernicke-Korsakoff/thiamine deficiency. He nu has multifactorial dementia with Alzheimer's and ETOh abuse related. He was supplemented with Folic acid and thiamine during his stay and upon discharge this will be continued. Neurology felt as though he was not safe to return home due to his significant cognitive impairment which limits his ability to function independently. He is at high fall risk due to his atxia and poor insight. He was then evaluated by Dr. Hicks, [facility], in which he found no psychatric medications needed and no behavioral concerns noted. Further treatment and evaluation for dementia recommended. Again, noted poor insight and cognition. Today patient is calm alert and oriented to person and place. He is unable to tell correct date and time. When asked about day of the week, he will start with Sunday, and move to Sunday then Sunday, whispering. He then becomes angry when constantly asked about the date and time. He was up with nursing with 2 assist and FWW, noteable ataxia. He will be discharged to SNF in [facility] today with daughter, Maria Esther is aware and agrees with this. he will be continued on ASA, Lisinopril, Atorvastatin, Metformin, folic acid and Thiamine. He will be transfered today with PT/OT to evaluate and treat upon admission. - General Info Date of Service: 04/10/17 Admission Dx/Problem (Free Text: Admission Diagnosis/Problem Admission Diagnosis/Problem Dementia without behavioral disturbance Subjective Update: Reports he is being "lazy today" laying in bed still. Denies any pain. He is alet to person and place only. Functional Status: Reports: Pain Controlled, Tolerating Diet, Ambulating (with assist and FWW), Urinating - Review of Systems General: Reports: No Symptoms HEENT: Reports: No Symptoms Pulmonary: Reports: No Symptoms. Denies: Shortness of Breath Cardiovascular: Reports: No Symptoms. Denies: Chest Pain Gastrointestinal: Reports: No Symptoms. Denies: Abdominal Pain, Nausea, Vomiting Musculoskeletal: Reports: No Symptoms. Denies: Neck Pain Neurological: Reports: No Symptoms Psychiatric: Reports: No Symptoms - Patient Data Vitals - Most Recent: Last Vital Signs Temp 98.9 F 04/10/17 03:00 Pulse 82 04/10/17 03:00 Resp 19 04/10/17 03:00 BP 132/75 04/10/17 03:00 Pulse Ox 98 04/10/17 03:00 Weight - Most Recent: 69.5 kg I&O - Last 24 hours: Intake & Output 04/09/17 04/10/17 04/10/17 22:59 06:59 14:59 Intake Total 360 740 Output Total 620 760 Balance -260 -20 Lab Results - Last 24 hrs: Laboratory Results - last 24 hr 04/09/17 04/09/17 04/09/17 Range/Units 10:57 16:39 20:42 POC Glucose 120 H 148 H 99 (60-110) mg/dL 04/10/17 Range/Units 06:18 POC Glucose 105 (60-110) mg/dL Med Orders - Current: Current Medications Acetaminophen (Tylenol) 650 mg PO Q4H PRN PRN Reason: Pain (mild 1-3) Last Admin: 04/07/17 06:36 Dose: 650 mg Aspirin (Aspirin) 81 mg PO DAILY [facility] Last Admin: 04/09/17 08:04 Dose: 81 mg Atorvastatin Calcium (Lipitor) 20 mg PO BEDTIME [facility] Last Admin: 04/09/17 21:02 Dose: 20 mg Folic Acid (Folic Acid) 1 mg PO BEDTIME [facility] Last Admin: 04/09/17 21:02 Dose: 1 mg Insulin Aspart (Novolog) 0 unit SUBCUT ACBED [facility] PRN Reason: Protocol Last Admin: 04/10/17 06:51 Dose: Not Given Levothyroxine Sodium (Levothyroxine) 25 mcg PO ACBREAKFAST [facility] Last Admin: 04/10/17 06:51 Dose: 25 mcg Lisinopril (Prinivil) 20 mg PO BID [facility] Last Admin: 04/09/17 21:05 Dose: 20 mg Morphine Sulfate (Morphine) 2 mg IVPUSH Q2H PRN PRN Reason: Pain (severe 7-10) Multivitamins/Minerals/Vitamin C (Tab-A-Karon) 1 tab PO BEDTIME [facility] Last Admin: 04/09/17 21:02 Dose: 1 tab Nicotine (Habitrol) 21 mg TRDERM DAILY [facility] Last Admin: 04/09/17 08:06 Dose: Not Given Oxycodone HCl (Oxycodone) 5 mg PO Q4H PRN PRN Reason: Pain (moderate 4-6) Thiamine HCl (Vitamin B-1) 100 mg PO DAILY [facility] Last Admin: 04/09/17 08:04 Dose: 100 mg Discontinued Medications Enoxaparin Sodium (Lovenox) 40 mg SUBCUT DAILY [facility] Last Admin: 04/01/17 10:17 Dose: 40 mg Folic Acid (Folic Acid) 1 mg PO DAILY [facility] Last Admin: 03/31/17 09:03 Dose: 1 mg Sodium Chloride (Normal Saline) 1,000 mls @ 125 mls/hr IV ASDIRECTED [facility] Last Admin: 03/27/17 20:15 Dose: 125 mls/hr Thiamine HCl 100 mg/ Sodium (Chloride) 101 mls @ 202 mls/hr IV ONETIME ONE Stop: 03/27/17 19:45 Last Admin: 03/27/17 20:17 Dose: 202 mls/hr Thiamine HCl 100 mg/ Sodium (Chloride) 101 mls @ 202 mls/hr IV ONETIME ONE Stop: 03/27/17 20:44 Last Admin: 03/27/17 20:24 Dose: Not Given Multivitamins/Minerals 10 ml/ (Sodium Chloride) 1,010 mls @ 100 mls/hr IV ONETIME ONE Stop: 03/28/17 09:50 Last Admin: 03/28/17 00:59 Dose: 100 mls/hr Sodium Chloride (Normal Saline) 1,000 mls @ 100 mls/hr IV ASDIRECTED [facility] Last Admin: 04/01/17 12:40 Dose: 100 mls/hr Iopamidol (Isovue Multipack-370 (76%)) 50 ml IVPUSH ONETIME STA Stop: 03/29/17 12:08 Last Admin: 03/29/17 12:07 Dose: 50 ml Lisinopril (Prinivil) 10 mg PO DAILY [facility] Last Admin: 04/01/17 10:10 Dose: 10 mg Lisinopril (Prinivil) 10 mg PO BID [facility] Last Admin: 04/03/17 20:26 Dose: 10 mg Lisinopril (Prinivil) 10 mg PO DAILY [facility] Stop: 04/04/17 01:16 Last Admin: 04/04/17 01:22 Dose: 10 mg Lorazepam (Ativan) 1 - 3 mg IVPUSH Q4H PRN; Protocol PRN Reason: Alcohol Withdrawal Last Admin: 04/06/17 20:58 Dose: 1 mg Thiamine HCl (Vitamin B-1) 100 mg PO BEDTIME [facility] Last Admin: 03/31/17 20:00 Dose: 100 mg - Exam General: Reports: Alert, Cooperative, No Acute Distress. Denies: Oriented ( person and place only) HEENT: Reports: Pupils Equal, Pupils Reactive Lungs: Reports: Clear to Auscultation, Normal Respiratory Effort Cardiovascular: Reports: Regular Rate, Regular Rhythm GI/Abdominal Exam: Normal Bowel Sounds, Soft, Non-Tender, No Organomegaly, No Distention, No Abnormal Bruit, No Mass, Pelvis Stable Extremities: Normal Inspection, Normal Range of Motion, Non-Tender, No Pedal Edema, Normal Capillary Refill Neurological: Denies: Normal Gait (ataxia) Psy/Mental Status: Reports: Alert, Normal Affect, Normal Mood, Agitated (when asked the date and year) *Q Meaningful Use (DIS) - VTE *Q VTE Criteria *Q: VTE Mechanical Contraindications *Q: At Risk for Falls - Stroke *Q Stroke Criteria *Q: - AMI *Q AMI Criteria *Q:
[2017-04-10] MEDS: Thiamine 100 MG Tab PO SCH (08:16)
[2017-04-10] MEDS: Aspirin 81 MG Tab.Chew PO SCH (08:16)
[2017-04-10] MEDS: Lisinopril 10 MG Tab PO SCH (08:19)
[2017-04-10] MEDS: Nicotine 21 MG/24 Hr Patch TRDERM SCH (08:19)
[2017-04-10] MEDS ORDERED: FLU Vacc QS 2017-18 (36mos UP)/PF 60 MCG/0.5 ML Syringe IM ONE ×2 (10:15)
[2017-04-10 11:03] VITALS: BP 151/83
== END 2017-04-10 11:30 | DRG 92 ==
LOC: MW.ED 19:18 → MW.MS 20:49 → OBSVTOIN 03-28 10:33 → MW.MS 03-31 17:12
PROVIDERS: ADMIT Internal Medicine; ATTEND Internal Medicine
PROC: 4B09XSZ Measurement of Respiratory Pacemaker, External Approach (ICD-10-PCS; principal; 2017-03-30)
DX: R26.81 Unsteadiness on feet (principal); R26.9 Unspecified abnormalities of gait and mobility; R64 Cachexia; E11.9 Type 2 diabetes mellitus without complications; F10.239 Alcohol dependence with withdrawal, unspecified; Z79.899 Other long term (current) drug therapy; R53.1 Weakness; F03.90 Unspecified dementia, unspecified severity, without behavioral disturbance, psychotic disturbance, mood disturbance, and anxiety; I10 Essential (primary) hypertension; K21.9 Gastro-esophageal reflux disease without esophagitis; E78.5 Hyperlipidemia, unspecified; R51 Headache; F17.200 Nicotine dependence, unspecified, uncomplicated; Z23 Encounter for immunization; Z95.0 Presence of cardiac pacemaker
CPT/HCPCS: 36415; 70450; 71010; 80053 ×2; 81001; 82962 ×3; 83036; 83735; 84100; 84443; 84484; 85025 ×2; 85610; 87086; 93005; 96361; 96365; 96366; 96367; 99285; A9270 ×4; G0378 ×2; J1815; J3411; J7030; J7040 ×2; 70460; 70460-26; 80048; 80061; 82607; 90686; 90732; 93306; 93880; 93880-26; 97110-GP; 97116-GP; 97162-GP; 97165-GO; 97530-GP; 99283; G0008; G0009; J1650; J2060; Q9967